=== PATIENT | female | born 1955 | race Caucasian/White ===

== ENCOUNTER 2019-06-02 13:20 | Inpatient (IN) | payer MEDICARE, MEDICAID, SELFPAY ==
[2019-06-04 06:00] VITALS: BP 118/71; PULSE 76; RESP 16; TEMP 36.5; O2SAT 93
[2019-06-04] MEDS: metformin 500 mg Tablet 1000 MG PO ×2 (09:30→17:32)
[2019-06-04] MEDS: pregabalin 100 mg Capsule 200 MG PO ×2 (10:31→17:30)
[2019-06-04] MEDS: pantoprazole DR 40 mg Tablet PO (10:31)
[2019-06-04] MEDS: levothyroxine 150 mcg Tablet PO (10:32)
[2019-06-04] MEDS: sulfamethoxazole-trimeth DS 160-800 mg Tablet 1 TAB PO ×2 (10:32→17:33)
[2019-06-04 14:00] VITALS: BP 126/74; PULSE 87; RESP 20; TEMP 37; O2SAT 96
--- NOTE | 2019-06-04 16:14 | PM.NPN ---
Subjective NPU Subjective: Interval history: Keena presents today reporting that she is doing okay. She reports that she is feeling a lot better and she is hoping to leave soon. We discussed the fact that she is on a 96-hour hold which she could not understand, but I explained that was the case. She appears clear and had been reportedly clearly psychotic from the methamphetamine which she acknowledges that she takes. She reports that the source of the amphetamine is going to be leaving soon and so she is going to be fine. She endorses that she rents a place that she pays for with her SSI and that she does fine on the medications when she is not using and endorses a plan to not use. We discussed the risks, benefits and alternatives of her not having more aggressive treatment as well as discharging and she understood and agreed to proceed as is documented in this note. Mental Status Exam MSE Comments: This is an obese, older, white female, with adequate dress, grooming, and eye contact. No abnormal movements except for mild psychomotor retardation. Cooperative with exam in no acute distress. Speech was normal rate and volume. Mood described as better; affect congruent. Thought process, organized. Thought content: patient denied any suicidal or homicidal ideation, there were no delusions reported or noted, patient denied any auditory or visual hallucinations. Attention, concentration, and memory appeared intact but were not formally tested. Alert and oriented times three. Insight and judgment are limited as she is demonstrating no insight into the impact of her addiction. 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 Continue current medication. She had not informed them of her Paxil so we will initiate that today. Encourage individual, group, and milieu therapy. Continue q 15 minute checks for safety. Encourage to engage in sober living treatment and recovery treatment at the highest level to which she is willing to commit. Attestations NPU Medical Necessity Statement*: Inpatient hospitalization is medically necessary and the clinically appropriate intervention at this time. We will continue to monitor medications and titrate to affect. We will evaluate the patient throughout the day and if she continues to show clarity and be absent of psychosis, we will consider discharging in the morning. Likely length of stay one to three days. Coding Level of Care Code Acute Greeting Card Writer for Ron Womack
[2019-06-04 17:06] LABS: Glucose Point of Care 120 mg/dL (70-110)
[2019-06-04] MEDS: PARoxetine 20 mg Tablet PO (17:33)
[2019-06-04 20:25] VITALS: BP 128/68; PULSE 80; RESP 19; TEMP 37.2; O2SAT 95
[2019-06-04] MEDS: atorvastatin 40 mg Tablet 20 MG PO (21:03)
[2019-06-05 06:00] VITALS: BP 134/70; PULSE 69; RESP 21; TEMP 36.9; O2SAT 100
[2019-06-05 06:30] LABS: Glucose Point of Care 94 mg/dL (70-110)
[2019-06-05] MEDS: metformin 500 mg Tablet 1000 MG PO (08:45)
[2019-06-05] MEDS: pregabalin 100 mg Capsule 200 MG PO (08:45)
[2019-06-05] MEDS: PARoxetine 20 mg Tablet PO (08:45)
[2019-06-05] MEDS: sulfamethoxazole-trimeth DS 160-800 mg Tablet 1 TAB PO (08:45)
[2019-06-05] MEDS: pantoprazole DR 40 mg Tablet PO (08:45)
[2019-06-05] MEDS: fluticasone nasal spray 16gm Btl 1 SPRAY NASAL (08:49)
[2019-06-05] MEDS: levothyroxine 150 mcg Tablet PO (09:25)
--- NOTE | 2019-06-05 12:01 | P.DS_ITS ---
Diagnoses at Discharge Discharge Diagnosis (1) Psychosis: Status: Acute (2) Depressive disorder, not elsewhere classified: Status: Acute Reason for Visit Reason for Visit: Reason For Visit: Psychosis;Substance Abuse;Si;Hallucinations;96 Hr Hospital Course Hospital Course Hospital course: She was admitted from the emergency room and was pretty aloof secondary to her paranoia and psychosis. She slowly acclimated to the individual, group and milieu therapies provided but had limited participation. She had a UTI which was treated and she was discharged on continuing medication. Her home medications were continued and her psychosis resolved. During the hospitalization she had routine laboratory studies which were within normal limits except for a few outliers. Those can be seen in this document. Additionally she had a general medical evaluation which was within normal limits as well and revealed no additional acute processes outside of the UTI. She was on a 96-hour hold but quickly her psychosis resolved and she had no interest in staying in the hospital and we had no additional interventions that we would recommend outside of sober living follow-up which she was refusing. She was assessed to be absent imminent risk to herself or others and had received the maximum benefit from this inpatient stay given that she would not consider a higher level of care for her addiction so she was discharged. Mental Status Exam MSE Comments: This is an obese, older, white female, with adequate dress, grooming, and eye contact. No abnormal movements except for improving mild psychomotor retardation. Cooperative with exam in no acute distress. Speech was normal rate and volume. Mood described as pretty good; affect congruent. Thought process, organized. Thought content: patient denied any suicidal or homicidal ideation, there were no delusions reported or noted, patient denied any auditory or visual hallucinations. Attention, concentration, and memory appeared intact but were not formally tested. Alert and oriented times three. Insight and judgment are improving but limited but she has diminished insight with her addiction. Discharge Data Data Completed and Pending: Labs from last 24 hours 06/05/19 06/04/19 06:19 17:01 POC Glucose 94 120 Vitals: Last Vital Signs Temp 98.4 F 06/05/19 06:00 Pulse 69 06/05/19 06:00 Resp 21 H 06/05/19 06:00 BP 134/70 06/05/19 06:00 Pulse Ox 100 06/05/19 06:00 Discharge Plan Discharge Patient Disposition: Home, Self-Care Condition: Stable Prescriptions: New sulfamethoxazole-trimethoprim 800-160 mg Tablet 1 tab PO BID 6 Days Qty: 11 RF: 0 Continued fluticasone propionate [Flonase Allergy Relief] 50 mcg/actuation spray,jiménez spension 1 spray INTRANASAL DAILY RF: 0 levothyroxine 150 mcg capsule 150 mcg PO DAILY RF: 0 albuterol sulfate [ProAir HFA] 90 mcg/actuation HFA aerosol inhaler 1 inh INHALATION Q4H RF: 0 simvastatin 20 mg tablet 20 mg PO BEDTIME RF: 0 omeprazole 20 mg capsule,delayed release(DR/EC) 20 mg PO DAILY RF: 0 pregabalin [Lyrica] 200 mg capsule 200 mg PO BID RF: 0 glipizide 5 mg tablet 5 mg PO BIDAC RF: 0 metformin 1,000 mg Tablet 1,000 mg PO BIDWM RF: 0 Paxil 20 mg tablet 20 mg PO DAILY 30 Days Qty: 30 RF: 1 Discharge Orders: Discharge Order (Routine); Ordered 06/05/19 Ordered By: Arcenio Gorman Referrals: [facility] [Provider Group] [facility] [Outside] Discharge Diet: Diabetic Discharge Activity: Resume usual activity Patient Instructions: Depression, Sulfamethoxazole/Trimethoprim (By mouth) Activity Restrictions/Additional Instructions: Follow up with provider of choice in 3-5 days Follow up as a walk in at [facility], walk in hours are from 7:30AM- 2:30PM, first come, first seen. Once you do this assessment you will be referred for appropriate services. Follow up with Dr. Mejia as needed Discharge Date/Time: 06/05/19 14:24 Discharge Attestations NPU Time Spent in Discharge Care*: less than 30 min Coding Level of Care Code Acute Ritual Circumciser for Chg Fwd Diagnoses Psychosis F29 Depressive disorder, not elsewhere classified F32.9
[2019-06-05 12:32] VITALS: BP 134/70; RESP 21; TEMP 36.9; O2SAT 100
[2019-06-05 12:35] VITALS: BP 134/70; RESP 21; TEMP 36.9; O2SAT 100
== END 2019-06-05 14:24 | disposition home or self-care (01) | DRG 897 ==
PROVIDERS: Family Provider Family Medicine; PCP Family Medicine; Visit Provider Psychiatry & Neurology Psychiatry
DX: F15.151 Other stimulant abuse with stimulant-induced psychotic disorder with hallucinations (principal); F41.8 Other specified anxiety disorders; F12.90 Cannabis use, unspecified, uncomplicated; I10 Essential (primary) hypertension; E11.9 Type 2 diabetes mellitus without complications; J44.9 Chronic obstructive pulmonary disease, unspecified; Z86.73 Personal history of transient ischemic attack (TIA), and cerebral infarction without residual deficits; Z87.11 Personal history of peptic ulcer disease; K21.9 Gastro-esophageal reflux disease without esophagitis; M19.90 Unspecified osteoarthritis, unspecified site; G89.29 Other chronic pain; M54.9 Dorsalgia, unspecified; M81.0 Age-related osteoporosis without current pathological fracture; Z79.51 Long term (current) use of inhaled steroids; Z79.84 Long term (current) use of oral hypoglycemic drugs; F82 Specific developmental disorder of motor function
CPT/HCPCS: 36415; 36416; 71045; 80053; 80307; 81001; 82962; 84439; 84443; 84484; 85025; 85610; 93005; 96361; 96372; 96374; 99223; 99232; 99284; 99285; J1200; J1630; J2060; J7030

== ENCOUNTER → 2019-06-19 11:28 | Outpatient (BNVA) | payer MEDICARE, MEDICAID, SELFPAY | PROVIDERS: Family Provider Family Medicine; PCP Family Medicine; Referring Provider Family Medicine; Visit Provider Family Medicine | DX: R35.0 Frequency of micturition (principal); F29 Unspecified psychosis not due to a substance or known physiological condition | CPT/HCPCS: 81003; 87086 ==

== ENCOUNTER → 2019-07-03 12:58 | Outpatient (BNVA) | payer MEDICARE, MEDICAID, SELFPAY | PROVIDERS: Family Provider Family Medicine; PCP Family Medicine; Visit Provider Otolaryngology | DX: J32.9 Chronic sinusitis, unspecified (principal); J34.2 Deviated nasal septum; J34.3 Hypertrophy of nasal turbinates; J38.1 Polyp of vocal cord and larynx; F17.210 Nicotine dependence, cigarettes, uncomplicated | CPT/HCPCS: 31575; 99214 ==

== ENCOUNTER 2019-07-15 15:53 | Outpatient (CLI) | payer MEDICARE, MEDICAID, SELFPAY ==
--- NOTE | 2019-07-15 16:00 | CT_ITS ---
WS: [id number] CT PARANASAL SINUSES HISTORY: sinusitis TECHNIQUE: Contiguous 2.5 mm axial images obtained through the sinuses. Images are reconstructed in s agittal and coronal planes. All CT scans at [facility] use at least one of these dose opt imization techniques: automated exposure control; mA and/or kV adjustment per patient size (includes targeted exams where dose is matched to clinical indication); or iterative reconstruction. DLP: 483.51 mGy.cm COMPARISON: None available. Frontal sinuses: Very atrophic frontal sinuses. RIGHT frontal sinus is essentially absent. Sphenoid sinus: Normal. Ethmoid sinuses: Mild mucoperiosteal thickening in the ethmoid air cells. Small osteoma anterior RIGH T frontal sinus. Maxillary sinus: Normal. Ostiomeatal unit: Small amount of mucoperiosteal thickening at the ostiomeatal units but they are pat ent. Very slight deviation of the inferior nasal septum to the LEFT of midline. Orbits and globes are norm al. Atherosclerotic plaque in the intracranial carotid arteries. CT/CT sinus wo con* [id number] IMPRESSION: 1. Mild mucoperiosteal disease in the ethmoid sinuses. No air-fluid levels. 2. No significant obstruction of the ostiomeatal units.
== END 2019-07-15 15:54 | disposition home or self-care (01) ==
LOC: RAD 15:54
PROVIDERS: Family Provider Family Medicine; PCP Family Medicine; Visit Provider Otolaryngology
DX: J32.9 Chronic sinusitis, unspecified (principal)
CPT/HCPCS: 70486

== ENCOUNTER 2019-07-18 08:39 | Outpatient (CLI) | payer MEDICARE, MEDICAID, SELFPAY ==
--- NOTE | 2019-07-18 08:46 | MR_ITS ---
WS: [id number] MRI LUMBAR SPINE NONCONTRAST TECHNIQUE: Sagittal T1, T2 and STIR imaging. Axial T1 and T2 imaging. CLINICAL INFORMATION: LOW BACK PAIN COMPARISON: None. FINDINGS: Mild lumbar curve. No acute compression. No high-grade central canal stenosis. L1-L2: Mild annular bulging with slight effacement of ventral thecal sac. Mild facet arthropathy. Spi nal canal and foramen are patent. L2-L3: Slight retrolisthesis. Mild annular bulging with slight effacement of ventral thecal sac. Mild facet arthropathy. Spinal canal and foramen are patent. L3-L4: No significant disc bulging. Mild facet arthropathy. Spinal canal and foramen are patent. L4-L5: Mild annular bulging with slight effacement of the ventral thecal sac. Tiny bilateral foramina l protrusions with mild foraminal narrowing. Moderate facet arthropathy. L5-S1: No significant disc bulging. Eccentric osteophytic ridging slightly encroaches on the far exit ing L5 nerve roots. No significant nerve root impingement. Mild facet arthropathy MR/MR lumbar spine wo con* [id number] IMPRESSION: 1. Mild lumbar curve. No acute compression. No high-grade central canal stenos is. 2. Small bilateral foraminal protrusions L4-5 with mild bilateral foraminal na rrowing. 3. Mild annular bulging L1-L2 and L2-L3 without significant central canal sten osis. 4. Eccentric osteophytic ridging L5-S1 slightly encroaches on the far exiting L5 nerve roots without significant impingement. 5. Mild to moderate facet arthropathy L3-L5.
--- NOTE | 2019-07-18 09:30 | XR_ITS ---
WS: [id number] LUMBAR SPINE FLEXION AND EXTENSION TECHNIQUE: 3 views of the lumbar spine: Lateral neutral, flexion, and extension views. CLINICAL INFORMATION: Low back pain COMPARISON: None. FINDINGS: Trace retrolisthesis L2 on L3. No instability on flexion-extension. Disc space narrowing worse at L4- L5 and L5-S1. Chronic anterior wedging lower thoracic spine. Moderate spondylitic changes. Moderate f acet arthropathy L4-L5 and L5-S1. Aortic calcification. XR/XR lumbar spine f/e only [id number] IMPRESSION: No instability on flexion-extension.
== END 2019-07-18 08:40 | disposition home or self-care (01) ==
LOC: RADWPI 08:43
PROVIDERS: Family Provider Family Medicine; PCP Family Medicine; Visit Provider Licensed Practical Nurse
DX: M51.26 Other intervertebral disc displacement, lumbar region (principal); M47.817 Spondylosis without myelopathy or radiculopathy, lumbosacral region
CPT/HCPCS: 72120; 72148

== ENCOUNTER → 2019-07-23 10:45 | Outpatient (BNVA) | payer MEDICARE, MEDICAID, SELFPAY | PROVIDERS: Family Provider Family Medicine; PCP Family Medicine; Referring Provider Licensed Practical Nurse; Visit Provider Psychiatry & Neurology Neurology | DX: J38.1 Polyp of vocal cord and larynx (principal); J32.9 Chronic sinusitis, unspecified; J34.3 Hypertrophy of nasal turbinates; J34.2 Deviated nasal septum; F17.210 Nicotine dependence, cigarettes, uncomplicated; G62.9 Polyneuropathy, unspecified; M79.605 Pain in left leg | CPT/HCPCS: 95886; 95908; 96372; 99214; J3301 ==

== ENCOUNTER → 2019-08-14 13:21 | Outpatient (BNVA) | payer MEDICARE, MEDICAID, SELFPAY | PROVIDERS: Family Provider Family Medicine; PCP Family Medicine; Visit Provider Otolaryngology | DX: J38.1 Polyp of vocal cord and larynx (principal); J34.3 Hypertrophy of nasal turbinates; J34.2 Deviated nasal septum; K21.9 Gastro-esophageal reflux disease without esophagitis; F17.210 Nicotine dependence, cigarettes, uncomplicated | CPT/HCPCS: 99214 ==

== ENCOUNTER → 2019-09-05 08:08 | Outpatient (BNVA) | payer MEDICARE, MEDICAID, SELFPAY | PROVIDERS: Family Provider Family Medicine; PCP Family Medicine; Referring Provider Licensed Practical Nurse; Visit Provider Anesthesiology Pain Medicine | DX: M54.9 Dorsalgia, unspecified (principal); M54.16 Radiculopathy, lumbar region; M47.816 Spondylosis without myelopathy or radiculopathy, lumbar region; M62.830 Muscle spasm of back; F17.210 Nicotine dependence, cigarettes, uncomplicated; Z79.891 Long term (current) use of opiate analgesic | CPT/HCPCS: 99204 ==

== ENCOUNTER → 2019-10-31 09:00 | Outpatient (BNVA) | payer MEDICARE, MEDICAID, SELFPAY | PROVIDERS: Family Provider Family Medicine; PCP Family Medicine; Visit Provider Anesthesiology Pain Medicine | DX: M54.42 Lumbago with sciatica, left side (principal); M54.16 Radiculopathy, lumbar region; M47.816 Spondylosis without myelopathy or radiculopathy, lumbar region; M54.9 Dorsalgia, unspecified; M62.830 Muscle spasm of back; I73.9 Peripheral vascular disease, unspecified; F17.210 Nicotine dependence, cigarettes, uncomplicated | CPT/HCPCS: 99213; 99214 ==

== ENCOUNTER 2019-10-31 17:10 | Observation (INO) | payer MEDICARE, MEDICAID, SELFPAY ==
--- NOTE | 2019-10-31 17:11 | XRR_ITS ---
PROCEDURE INFORMATION: Exam: XR Chest, 1 View Exam date and time: 10/31/2019 5:11 PM Age: 64 years old Clinical indication: Chest pain; Type not specified; Patient HX: C/O cp x 2 hrs TECHNIQUE: Imaging protocol: XR of the chest Views: 1 view. COMPARISON: CR Chest 1 [place] [id number] 06/02/2019 12:17 PM FINDINGS: Patient is rotated, limiting assessment. Otherwise no focal pulmonary consolidation is demonstrated on this single frontal image. No significant obscuration of the lateral costophrenic angles is demonstrated. No significant vascular congestion is demonstrated. Visualized cardiac silhouette size appears mildly enlarged. Pericardial effusion not excluded. There is small to moderate hiatal hernia. XR/XR chest 1V portable [id number] IMPRESSION: No definite acute pulmonary process is demonstrated. Visualized cardiac silhouette size appears mildly enlarged. Pericardial effusion not excluded. There is small to moderate hiatal hernia.
--- NOTE | 2019-10-31 17:11 | ECG_ITS ---
Measurements Intervals [place] Rate: 76 P: 56 SD: 190 QRS: 14 QRSD: 89 T: 50 QT: 368 QTc: 415 SINUS RHYTHM LOW QRS VOLTAGE IN PRECORDIAL LEADS [QRS DEFLECTION < 1.0 mV IN CHEST LEADS] NONSPECIFIC T-WAVE ABNORMALITY Compared to ECG 06/02/2019 12:47:48 Low QRS voltage now present T-wave abnormality still present Electronically Signed On 10-31-2019 18:56:12 CDT by Michelle Draper M.D. [email or web address]
[2019-10-31 17:39] VITALS: BP 195/71; PULSE 78; RESP 18; TEMP 36.4; O2SAT 98
[2019-10-31 17:52] LABS: Basophils % 0.4 %; Eosinophils # 0.3 10^3/uL (0.0-0.8); Eosinophils % 2.9 %; Hematocrit 34.7 % (37.0-47.0); Hemoglobin 10.3 g/dL (11.5-15.3); Lymphocytes # 3.5 10^3/uL (0.8-4.8); Lymphocytes % 35.2 %; Mean Corpuscular HGB Conc 29.7 g/dL (30.0-36.0); Mean Corpuscular Hemoglobin 23.2 pg (28.0-34.0); Mean Corpuscular Volume 78.2 fL (81-99); Mean Platelet Volume 11.4 fL (7.4-10.4); Monocytes # 0.6 10^3/uL (0.2-0.9); Monocytes % 6.3 %; Neutrophils # 5.4 10^3/uL (1.8-7.7); Neutrophils % 54.9 %; Nucleated Red Blood Cells % 0 %; Platelet Count 320 10^3/cmm (130-400); Red Blood Count 4.44 10^6/uL (4.1-5.3); White Blood Count 9.8 10^3/uL (4.0-10.0)
--- NOTE | 2019-10-31 17:55 | ED_ITS ---
HPI - Chest Pain General: Chief Complaint: Chest Pain Stated Complaint: cp Time Seen by Provider: 10/31/19 17:47 Source: patient Mode of arrival: ambulatory History of Present Illness: HPI narrative: 64-year-old female has a history high blood pressure and is a smoker states she started having chest pain 1 hour ago. She states it was a pressure type pain in her chest. States pain is currently a 2 out of 10. She denies any nausea or shortness of breath. She denies any worsening or improving factors. MD complaint: chest pain Onset (ago): hour(s) Timing of current episode: constant Prior episodes: Yes Onset: during rest Pain location: substernal Pain radiation: none Severity: moderate Quality: heaviness Relieving factors: nothing Exacerbating factors: nothing Associated symptoms: Deny abdominal pain, dyspnea, fever(s), nausea or vomiting Review of Systems Const: Denies: fever(s), chills, body aches or change in appetite Eyes: Denies: blurry vision or eye discomfort ENMT: Denies: throat pain or dental pain Card: Reports: chest pain Resp: Denies: dyspnea GI: Denies: abdominal pain, nausea, vomiting or diarrhea : Denies: dysuria Musc: Denies: neck pain or back pain Skin/Breast: Denies: rash Neuro: Denies: headache(s) Psych: Denies: depression Frederic/Lymph: Denies: easy bruising All/Imm: Denies: urticaria PFSH ED PFSH: Medical History Chronic rhinitis Deviated septum GERD (gastroesophageal reflux disease) Intervertebral disc disorder with radiculopathy of lumbosacral region Nasal turbinate hypertrophy Nikita's edema of vocal folds Tobacco abuse Surgical History H/O cataract Family History Father CAD (coronary artery disease) Diabetes Mother Diabetes Brother Diabetes Grandfather CAD (coronary artery disease) Other Cancer Social History Smoking and tobacco status: current every day smoker Alcohol intake: never Household members: none Marital status: Current occupational status: disabled History of recent travel: No Physical Exam Const: COMMON NORMALS: no acute distress, patient oriented x3 and healthy appearing HENMT: COMMON NORMALS: normocephalic and atraumatic HEAD & SCALP: normocephalic and atraumatic Eye: COMMON NORMALS: Equal, round and reactive pupils present and EOMs intact bilaterally PUPIL: Yes Equal, round and reactive pupils present Neck/C-Spine: COMMON NORMALS: full ROM and supple Chest: COMMONS NORMALS: normal inspection of the chest and normal palpation of entire chest wall Resp: COMMON NORMALS: normal respiratory effort, No retractions, No use of accessory muscles and clear to auscultation bilaterally AUSCULTATION: clear to auscultation bilaterally Cardio: COMMON NORMALS: regular rate, regular rhythm and No murmurs present (Cardio) RATE: regular rate RHYTHM: regular rhythm GI: COMMON NORMALS: Normal to inspection, nondistended, normoactive bowel sounds present, Soft to palpation, non-tender and no masses PALPATION: Yes Soft to palpation Extremity: COMMON NORMALS: normal to inspection and full ROM Neuro: COMMON NORMALS: patient oriented x3, moves all extremities and no focal motor deficits Psych: COMMON NORMALS: mental status grossly normal, Normal thought process present and cooperative THOUGHT PROCESS: Normal thought process present Skin: COMMON NORMALS: no rashes or lesions noted and no wounds GENERAL SKIN EXAM: no rashes or lesions noted Course Vital Signs: Vital signs: Vital Signs Temperature 97.6 F 10/31/19 17:39 Pulse Rate 74 10/31/19 19:14 Respiratory Rate 18 10/31/19 19:14 Blood Pressure 171/82 10/31/19 19:14 Pulse Oximetry 98 10/31/19 19:14 MDM - Chest Pain MDM Narrative: Medical decision making narrative: Patient presents here with chest pain and has multiple risk factors. EKG and troponin are normal. I spoke to hospitalist will admit for observation. Patient has been stable on the ER nitro helped her pain. Lab Data: Labs: Lab Results 10/31/19 10/31/19 10/31/19 Range/Units 17:30 17:30 17:30 WBC 9.8 (4.0-10.0) 10^3/ uL RBC 4.44 (4.1-5.3) 10^6/u L Hgb 10.3 L (11.5-15.3) g/dL Hct 34.7 L (37.0-47.0) % MCV 78.2 L (81-99) fL MCH 23.2 L (28.0-34.0) pg MCHC 29.7 L (30.0-36.0) g/dL RDW 18.0 H (12.1-15.1) % Plt Count 320 (130-400) 10^3/c mm MPV 11.4 H (7.4-10.4) fL Neut % (Auto) 54.9 % Lymph % (Auto) 35.2 % [place] % (Auto) 6.3 % Eos % (Auto) 2.9 % Baso % (Auto) 0.4 % Neut # (Auto) 5.4 (1.8-7.7) 10^3/u L Lymph # (Auto) 3.5 (0.8-4.8) 10^3/u L [place] # (Auto) 0.6 (0.2-0.9) 10^3/u L Eos # (Auto) 0.3 (0.0-0.8) 10^3/u L Baso # (Auto) 0.0 (0.0-0.1) 10^3/u L Nucleated RBC % (a uto) 0 % Nucleated RBCs # 0.0 /100WBC Sodium 137 (136-145) mmol/L Potassium 4.0 (3.5-5.1) mmol/L Chloride 102 (98-107) mmol/L Carbon Dioxide 24 (22-29) mmol/L Anion Gap 15.0 (5-19) BUN 14 (8-23) mg/dL Creatinine 0.7 (0.5-0.9) mg/dL GFR Calculation 84.2 L (90-130) mL/min Glucose 150 H (65-115) mg/dL Calculated Osmolal ity 283 L (285-295) mOsm/k g Calcium 8.8 (8.5-10.5) mg/dL Total Bilirubin 0.2 (0.15-1.2) mg/dL AST 23 (0-32) U/L ALT 24 (0-33) U/L Alkaline Phosphata se 120 H (35-105) IU/L Troponin T Baselin e 6 (0-10) ng/mL Total Protein 7.3 (6.6-8.7) g/dL Albumin 3.8 (3.5-5.2) g/dL Globulin 3.5 (1.3-4.6) g/dL Imaging Data^: CXR: Attestation: I personally reviewed and interpreted this imaging study as follows: My impression: No acute abnormality EKG Data^: EKG 1: Attestation: I personally reviewed and interpreted this EKG as follows: EKG interpretation date: 10/31/19 EKG interpretation time: 17:48 Interpretation: nsr hr [address] or t wave abnormalities qrs 89 qtc 398 EKG 2: Attestation: I personally reviewed and interpreted this EKG as follows: EKG interpretation date: 10/31/19 EKG interpretation time: 19:35 Interpretation: Normal sinus rhythm heart rate [address] or T wave abnormal ities QRS 85 QTc 402 Discharge Plan Discharge Prescriptions: No Action omeprazole 20 mg capsule,delayed release(DR/EC) 20 mg PO DAILY RF: 0 pregabalin [Lyrica] 200 mg capsule 200 mg PO TID RF: 0 quetiapine [Seroquel] 25 mg tablet 25 mg PO QDAY 30 Days Qty: 90 RF: 3 albuterol sulfate [ProAir HFA] 90 mcg/actuation HFA aerosol inhaler 1 inh INHALATION Q4H 90 Days Qty: 24 RF: 3 glipizide 5 mg tablet 5 mg PO BIDAC 90 Days Qty: 180 RF: 3 aspirin [Adult Low Dose Aspirin] 81 mg tablet,delayed release (DR/EC) 81 mg PO QDAY RF: 0 fluticasone propionate 50 mcg/actuation spray,suspension 1 spray INTRANASAL DAILY RF: 0 tizanidine 4 mg tablet 4 mg PO BID PRN (Reason: muscle spasticity) Qty: 60 RF: 0 levothyroxine 150 mcg capsule 150 mcg PO DAILY 90 Days Qty: 90 RF: 3 (DME) Accu-Chek Dayana Plus test strp Strip See Rx Instructions .ROUTE .MEDSUPPLY Qty: 100 RF: 3 (DME) lancets [Accu-Chek Softclix Lancets] Misc See Rx Instructions .ROUTE .MEDSUPPLY Qty: 50 RF: 11 metformin 1,000 mg tablet 500 mg PO BIDWM 90 Days Qty: 90 RF: 3 simvastatin 20 mg tablet 20 mg PO BEDTIME 90 Days Qty: 90 RF: 3 Coding Level of Care Code ED Account Manager B2B for Ron Fwd Exam Comprehensive
[2019-10-31 18:06] LABS: Alanine Aminotransferase 24 U/L (0-33); Albumin Level 3.8 g/dL (3.5-5.2); Alkaline Phosphatase 120 IU/L (35-105); Aspartate Amino Transferase 23 U/L (0-32); Blood Urea Nitrogen 14 mg/dL (8-23); Calcium 8.8 mg/dL (8.5-10.5); Carbon Dioxide 24 mmol/L (22-29); Chloride 102 mmol/L (98-107); Globulin 3.5 g/dL (1.3-4.6); Glomerular Filtration Rate 84.2 mL/min (90-130); Glucose 150 mg/dL (65-115); Osmolality Calculated 283 mOsm/kg (285-295); Sodium 137 mmol/L (136-145); Total Bilirubin 0.2 mg/dL (0.15-1.2); Total Protein 7.3 g/dL (6.6-8.7)
[2019-10-31 18:07] VITALS: BP 160/79; PULSE 78; RESP 18; O2SAT 99
[2019-10-31 18:08] LABS: Troponin(5th) Baseline 6 ng/mL (0-10)
[2019-10-31] MEDS: nitroglycerin 0.4 mg sublingual Tablet SUBLINGUAL (18:08)
[2019-10-31] MEDS: aspirin 81 mg Chew Tablet 324 MG PO (18:08)
--- NOTE | 2019-10-31 19:11 | ECG_ITS ---
Measurements Intervals [place] Rate: 71 P: 55 MT: 179 QRS: 8 QRSD: 85 T: 51 QT: 379 QTc: 414 SINUS RHYTHM LOW QRS VOLTAGE IN PRECORDIAL LEADS [QRS DEFLECTION < 1.0 mV IN CHEST LEADS] NONSPECIFIC T-WAVE ABNORMALITY Compared to ECG 10/31/2019 17:48:30 No significant changes Electronically Signed On 11-01-2019 8:16:50 CDT by Franc Xie M.D. [email or web address]
[2019-10-31] MEDS: lidocaine 2% viscous 15 ML, aluminum-mag hydrox-simethicon 30 ML, sucralfate oral liq 1 GM PO (19:12)
[2019-10-31 19:14] VITALS: BP 171/82; PULSE 74; RESP 18; O2SAT 98
--- NOTE | 2019-10-31 19:42 | PM.HP ---
Providers/Chief Complaint Primary Care Provider: Everardo Mejia MD Chief Complaint: cp History of Present Illness Keena Anderson is a 64 year old female who carries diagnoses of methamphetamine abuse in the past, history of incarceration, active smoker, non-oxygen dependent COPD, coming in with chief complaint of chest pain. Patient is stating that for last couple of years she has been experiencing leg pain on exertion, she has also noticed blue toes at some point in the past, she is scheduled to see Dr. Gonzalez on next week. For last couple of days she has been experiencing intermittent pressure-like chest discomfort, not associated with nausea vomiting or radiation of this pain to her arm. She is describing this chest discomfort as pressure-like sensation, substernally, sometimes radiate towards her left side of the jaw, her description of pain is very inconsistent, she kept on talking about her leg pains. She endorsed that her chest pain would last only for a few seconds, there are no aggravating or relieving factors, today she experience chest pain while she was smoking in her couch around 6 PM. She denies orthopnea, PND. She is denying aggravation of this chest discomfort on laying supine. Patient was very emotional and stated that her daughter at age 36 because of cardiomegaly. She is denying previous history of CT, and STEMI, endorses multiple TIAs. Diagnostics in the ER revealed normal hemodynamics other than hypertension, EKG did not reveal any ischemic or infarct changes however nonspecific T wave changes flat T waves anterolateral leads, patient is chest pain-free at the time of my interview, first troponin not significantly high Systolic blood pressure at the time of interview 180 mMHG, she was very emotional and started crying talking about her leg pain. Review of Systems Const: Reports: body aches and fatigue; Denies: fever(s) or chills Eyes: Reports: eye discharge; Denies: change in vision ENMT: Denies: throat pain Card: Reports: chest pain, swelling of feet/ankles, dyspnea on exertion and leg pain with exertion; Denies: palpitations, irregular heart rhythm or orthopnea Resp: Reports: dyspnea and productive cough GI: Denies: abdominal pain, nausea or vomiting : Denies: flank pain or difficulty voiding Musc: Reports: back pain and extremity pain; Denies: neck pain or joint stiffness Skin/Breast: Denies: rash Neuro: Denies: headache(s) Psych: Reports: anxiety, panic attacks and hopelessness; Denies: suicidal ideation Endo: Denies: polyuria Frederic/Lymph: Denies: easy bruising All/Imm: Denies: urticaria Medications/Allergies Home Medications Medication Instructions Recorded Confirmed Last Taken Type omeprazole 20 mg capsule,delayed 20 mg PO DAILY 05/30/19 10/31/19 06/02/19 History release levothyroxine 150 mcg capsule 150 mcg PO DAILY 90 Days #90 cap 06/09/19 10/31/19 Unknown Rx blood sugar diagnostic #100 each 06/23/19 10/31/19 Unknown Rx albuterol sulfate 90 mcg/actuation 1 inh INHALATION Q4H 90 Days #24 gm 06/30/19 10/31/19 Unknown Rx aerosol inhaler glipizide 5 mg tablet 5 mg PO BIDAC 90 Days #180 tab 06/30/19 10/31/19 Unknown Rx quetiapine 25 mg tablet 25 mg PO QDAY 30 Days #90 tab 06/30/19 10/31/19 Unknown Rx aspirin 81 mg tablet,delayed 81 mg PO QDAY 07/03/19 10/31/19 Unknown History release lancets #50 each 07/22/19 10/31/19 Unknown Rx pregabalin 200 mg capsule 200 mg PO TID cap 08/26/19 10/31/19 Unknown History metformin 1,000 mg tablet 500 mg PO BIDWM 90 Days #90 tab 09/06/19 10/31/19 Unknown Rx simvastatin 20 mg tablet 20 mg PO BEDTIME 90 Days #90 tab 10/06/19 10/31/19 Unknown Rx fluticasone propionate 50 1 spray INTRANASAL DAILY 10/31/19 10/31/19 Unknown History mcg/actuation nasal spray,suspension tizanidine 4 mg tablet 4 mg PO BID PRN #60 tab 10/31/19 10/31/19 Unknown Rx Allergies Allergy/AdvReac Type Severity Reaction Status Date / Time clarithromycin [From Biaxin] Allergy Thrush Verified 10/31/19 09:10 codeine Allergy rash Verified 10/31/19 09:10 PFSH Acute PFSH: Medical History (Updated 10/31/19 @ 20:16 by Michelle Christensen MD) Chronic back pain Chronic rhinitis COPD (chronic obstructive pulmonary disease) Deviated septum Diabetes GERD (gastroesophageal reflux disease) H/O: CVA (cerebrovascular accident) Hiatal hernia History of incarceration Hypertension 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 region group home (current) use of opiate analgesic Methamphetamine abuse Nasal turbinate hypertrophy Pain management contract signed Peptic ulcer disease Nikita's edema of vocal folds Tobacco abuse Surgical History (Updated 10/31/19 @ 20:16 by Michelle Christensen MD) H/O cataract History of appendectomy S/P tubal ligation Family History Father CAD (coronary artery disease) Diabetes Mother Diabetes Brother Diabetes Grandfather CAD (coronary artery disease) Other Cancer Social History Smoking and tobacco status: current every day smoker Alcohol intake: never Household members: none Marital status: Current occupational status: disabled History of recent travel: No Vitals/I&O/Wt Last Vital Signs Temp 97.6 F 10/31/19 17:39 Pulse 74 10/31/19 19:14 Resp 18 10/31/19 19:14 BP 171/82 10/31/19 19:14 Pulse Ox 98 10/31/19 19:14 Weight last 48 hrs Weight 2.353 kg Physical Exam Narrative: EXAM NARRATIVE: Head to toe examination Obese female Patient very emotional sitting in her bed with a mask Her granddaughter at the bedside EOMI, PERRLA Sinus congestion S1, S2 no acute signs of heart failure Abdomen soft, nondistended no sign of peritonitis bowel sound present Neurologically nonfocal exam Lower extremity dorsalis pedis pulses 1+ bilaterally no active signs of ischemia gangrene ulcer Lung auscultation reveals mild wheezing on expiration no active respiratory distress Her chest pain is nonreproducible No murmur appreciated Multiple body tattoos Data : 10/31/19 17:30 10/31/19 17:30 A&P Assessment and plan (1) Unstable angina: Status: Acute (2) Obesity: Status: Acute (3) Smoker: Status: Acute (4) Claudication of lower extremity: Status: Acute (5) Hypertension: Status: Acute (6) Diabetes: Status: Acute (7) Hypothyroidism: Status: Acute Additional A&P Information Unstable angina Multiple risk factors for coronary disease such as active smoking, dyslipidemia, hypothyroidism, diabetes First troponin negative, EKG shows flat T waves anterolateral leads, currently chest pain-free I would admit her to get echo in the morning to see any wall motion abnormalities ideally she would be a good candidate for a Lexiscan stress test, I recommended her to get a stress test next week Continue aspirin, statin Admit to [facility] Hiatal hernia found on chest x-ray which might be also contributing to her chest discomfort, I will try GI cocktail Intermittent claudication No active signs of cyanosis, gangrene or ulcer Counseled on smoking cessation I would get arterial Dopplers in the morning, she is scheduled to see Dr. Gonzalez on No need of anticoagulation at this point, continue aspirin and statin Active smoker: Counseled on smoking cessation, willing to try nicotine replacement therapy, patient is stating that she is strained financially to affoRD nicotine patches Hypothyroidism: I would continue her levothyroxine home dose, will check TSH Hypertension: I would add lisinopril current systolic blood pressure range between 1 50-1 80MMHG Type 2 diabetes: Multiple calluses on the foot, no active cellulitis, moderate sliding scale Full code Lovenox DVT prophylax Consistent carbohydrate diet Attestations Medical Necessity Statement*: Anticipating discharge in less than 48 hours currently needs echo and arterial Doppler Time Spent in Patient Care: 55 Coding Level of Care Code 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
[2019-10-31 19:50] LABS: Troponin 5 2HR Delta 0 ABS# (0-10)
[2019-10-31 20:13] VITALS: BP 182/116; PULSE 74; RESP 18; O2SAT 97
[2019-10-31 21:15] VITALS: BP 135/69; PULSE 71; RESP 23; TEMP 37; O2SAT 95
[2019-10-31] MEDS: pregabalin 100 mg Capsule 200 MG PO (21:46)
[2019-10-31] MEDS: atorvastatin 40 mg Tablet 20 MG PO (21:47)
[2019-10-31] MEDS: enoxaparin 40 mg/0.4 mL Syringe SUBCUT (21:47)
--- NOTE | 2019-10-31 21:57 | PC.NURSE ---
Patient arrived to the floor from the ED after report was received via phone. Patient is alert and oriented and ambulatory with standby assistance. Patient tells stories about her family and past and begins crying often while talking. Patient stated I used to use IV drugs. Patient has been oriented to her room and has call light within reach. SR on monitor and VSS. Will continue to monitor.
[2019-10-31 22:00] LABS: Thyroid Stimulating Hormone 0.18 uIU/mL (0.27-4.20)
[2019-10-31 22:35] LABS: Ferritin 17 ng/mL (15-150); Iron 19 ug/dL (37-145)
[2019-10-31 23:08] LABS: Glucose Point of Care 105 mg/dL (70-110)
--- NOTE | 2019-10-31 23:21 | PC.NURSE ---
Dr. Christensen notified of patient complaining of chest pain. Patient states it is worse when she breaths in. Patient also states she had a bitter taste in her mouth from acid reflux. Ordered to give Morphine.
[2019-10-31 23:49] VITALS: RESP 15
[2019-10-31] MEDS: morphine 4 mg/mL SDV 1 mL 2 MG IVP (23:49)
--- NOTE | 2019-10-31 23:59 | PC.NURSE ---
Patient came from ED without IV. 22 gauge IV started in left AC on second attempt.
[2019-11-01] VITALS (8 sets, daily range): BP systolic 123–136; BP diastolic 59–71; PULSE 69–80; RESP 12–23; TEMP 36.6–36.8; O2SAT 93–96
[2019-11-01 00:12] LABS: Troponin 5 6HR Delta 0 ng/L (0-12)
--- NOTE | 2019-11-01 00:46 | PC.NURSE ---
Patient is currently resting with eyes closed.
[2019-11-01 04:58] LABS: Amphetamines Screen Urine Negative (Negative); Barbiturates Screen Urine Negative (Negative); Benzodiazepines Screen Urine Negative (Negative); Cocaine Screen Urine Negative (Negative); Opiate Screen Urine Positive (Negative); PCP Screen Urine Negative (Negative); THC Screen Urine Negative (Negative)
[2019-11-01 05:29] LABS: Basophils % 0.4 %; Eosinophils # 0.3 10^3/uL (0.0-0.8); Eosinophils % 3.3 %; Hematocrit 33.9 % (37.0-47.0); Hemoglobin 10.1 g/dL (11.5-15.3); Lymphocytes # 2.8 10^3/uL (0.8-4.8); Lymphocytes % 37.5 %; Mean Corpuscular HGB Conc 29.8 g/dL (30.0-36.0); Mean Corpuscular Hemoglobin 23.5 pg (28.0-34.0); Monocytes # 0.6 10^3/uL (0.2-0.9); Monocytes % 7.5 %; Neutrophils # 3.9 10^3/uL (1.8-7.7); Neutrophils % 50.9 %; Nucleated Red Blood Cells % 0 %; Platelet Count 319 10^3/cmm (130-400); Red Blood Count 4.29 10^6/uL (4.1-5.3); Red Cell Distribution Width 17.9 % (12.1-15.1); White Blood Count 7.6 10^3/uL (4.0-10.0)
[2019-11-01 06:09] LABS: Anion Gap 12.1 (5-19); Blood Urea Nitrogen 11 mg/dL (8-23); Calcium 9.6 mg/dL (8.5-10.5); Carbon Dioxide 28 mmol/L (22-29); Chloride 104 mmol/L (98-107); Glomerular Filtration Rate 100.6 mL/min (90-130); Glucose 105 mg/dL (65-115); Osmolality Calculated 286 mOsm/kg (285-295); Potassium 4.1 mmol/L (3.5-5.1); Sodium 140 mmol/L (136-145)
[2019-11-01 06:32] LABS: Glucose Point of Care 99 mg/dL (70-110)
[2019-11-01] MEDS: aspirin 81 mg EC Tablet PO (08:07)
[2019-11-01] MEDS: pregabalin 100 mg Capsule 200 MG PO ×2 (08:07→14:40)
[2019-11-01] MEDS: pantoprazole DR 40 mg Tablet PO (08:07)
[2019-11-01] MEDS: levothyroxine 150 mcg Tablet PO (08:08)
[2019-11-01 12:00] LABS: Glucose Point of Care 99 mg/dL (70-110)
--- NOTE | 2019-11-01 13:42 | PM.DCS ---
Discharge Providers Date of Admission: 10/31/19 19:41 Date of Discharge: November 01, 2019 Attending Provider at Admission: Michelle Christensen MD Attending Provider at Discharge: Owen Raymond MD Primary Care Provider: Everardo Mejia MD Diagnoses at Discharge Discharge Diagnosis (1) Unstable angina: Status: Acute Problem details: Troponin negative. Delta negative. Echo with normal EF and no wall motion abnormalities (2) Obesity: Status: Acute (3) Smoker: Status: Acute (4) Claudication of lower extremity: Status: Acute Problem details: Ankle-brachial index 0.7 on right. She is already been referred to vascular surgery. (5) Hypertension: Status: Acute (6) Diabetes: Status: Acute (7) Hypothyroidism: Status: Acute Reason for Visit Reason for Visit: Reason For Visit: cp Hospital Course Hospital Course: Keena is a 64-year-old white female who presented to the hospital with somewhat atypical chest pain, sharp, lasting chronically for about a day. Not necessarily exertional. In the emergency department initial troponin was negative. There was concern for possible cardiac reason for chest discomfort so she was admitted. Serial troponins showed no significant delta. EKGs did not demonstrate any diagnostic changes. Only nonspecific ST-T wave changes. The following day she had no significant chest discomfort, feeling much better. It was thought she could be discharged home. Echocardiogram was also performed demonstrating no wall motion abnormalities, normal EF. She will be discharged for outpatient follow-up with her primary care provider. She will get a nuclear stress test next week for her chest discomfort. Note that she also had an arterial duplex done while inpatient secondary to claudication symptoms. This demonstrated an HEATHER of 0.7 on the left, 0.9 on the right. She already has a vascular surgery consult in his place. She has no current skin breakdown. While in the hospital her aspirin was changed to 325 mg daily. Statin was changed to Lipitor from lovastatin. Levothyroxine dose was decreased based on her low TSH. She will need a repeat TSH in 6 weeks. Physical Exam Narrative: EXAM NARRATIVE: General exam no apparent distress Cardiovascular regular rate and rhythm without murmur Lungs clear Abdomen is soft with positive bowel sounds Extremities no cyanosis clubbing or edema Discharge Data Data Completed and Pending: Completed Studies During Hospitalization Category Date Time Status XR chest 1V [place] ble [id number] Stat Exams 05/29/20 17:11 [place] [id number] Rout ine Ultrasound 11/01/19 21:15 Completed CV echo complete* [id number] Routine Ultrasound 11/01/19 21:15 Completed Labs from last 24 hours 11/01/19 11/01/19 11/01/19 11:31 06:28 04:49 WBC RBC Hgb Hct MCV MCH MCHC RDW Plt Count MPV Neut % (Auto) Lymph % (Auto) Clark % (Auto) Eos % (Auto) Baso % (Auto) Neut # (Auto) Lymph # (Auto) Clark # (Auto) Eos # (Auto) Baso # (Auto) Nucleated RBC % (a uto) Nucleated RBCs # Sodium 140 Potassium 4.1 Chloride 104 Carbon Dioxide 28 Anion Gap 12.1 BUN 11 Creatinine 0.6 GFR Calculation 100.6 Glucose 105 POC Glucose 99 99 Calculated Osmolal ity 286 Calcium 9.6 Iron Ferritin Total Bilirubin AST ALT Alkaline Phosphata se Troponin I 6 Hour Troponin I Hi Sens Del Troponin T Baselin e Troponin T 120 Min [place] Troponin T Total Protein Albumin Globulin TSH Urine Opiates Scre en Ur Barbiturates Sc reen Ur Phencyclidine S crn Ur Amphetamines Sc reen U Benzodiazepines Scrn Urine Cocaine Scre en U Marijuana (THC) Screen 11/01/19 11/01/19 10/31/19 04:49 04:00 23:34 WBC 7.6 RBC 4.29 Hgb 10.1 L Hct 33.9 L MCV 79.0 L MCH 23.5 L MCHC 29.8 L RDW 17.9 H Plt Count 319 MPV 12.0 H Neut % (Auto) 50.9 Lymph % (Auto) 37.5 Clark % (Auto) 7.5 Eos % (Auto) 3.3 Baso % (Auto) 0.4 Neut # (Auto) 3.9 Lymph # (Auto) 2.8 Clark # (Auto) 0.6 Eos # (Auto) 0.3 Baso # (Auto) 0.0 Nucleated RBC % (a uto) 0 Nucleated RBCs # 0.0 Sodium Potassium Chloride Carbon Dioxide Anion Gap BUN Creatinine GFR Calculation Glucose POC Glucose Calculated Osmolal ity Calcium Iron Ferritin Total Bilirubin AST ALT Alkaline Phosphata se Troponin I 6 Hour 6.00 Troponin I Hi Sens Del 0 Troponin T Baselin e Troponin T 120 Min [place] Troponin T Total Protein Albumin Globulin TSH Urine Opiates Scre en Positive H Ur Barbiturates Sc reen Negative Ur Phencyclidine S crn Negative Ur Amphetamines Sc reen Negative U Benzodiazepines Scrn Negative Urine Cocaine Scre en Negative U Marijuana (THC) Screen Negative 10/31/19 10/31/19 10/31/19 21:26 19:30 19:30 WBC RBC Hgb Hct MCV MCH MCHC RDW Plt Count MPV Neut % (Auto) Lymph % (Auto) Clark % (Auto) Eos % (Auto) Baso % (Auto) Neut # (Auto) Lymph # (Auto) Clark # (Auto) Eos # (Auto) Baso # (Auto) Nucleated RBC % (a uto) Nucleated RBCs # Sodium Potassium Chloride Carbon Dioxide Anion Gap BUN Creatinine GFR Calculation Glucose POC Glucose 105 Calculated Osmolal ity Calcium Iron 19 L Ferritin 17 Total Bilirubin AST ALT Alkaline Phosphata se Troponin I 6 Hour Troponin I Hi Sens Del Troponin T Baselin e Troponin T 120 Min [place] 6.00 Delta Troponin T 0 Total Protein Albumin Globulin TSH 0.18 L Urine Opiates Scre en Ur Barbiturates Sc reen Ur Phencyclidine S crn Ur Amphetamines Sc reen U Benzodiazepines Scrn Urine Cocaine Scre en U Marijuana (THC) Screen 10/31/19 10/31/19 10/31/19 17:30 17:30 17:30 WBC 9.8 RBC 4.44 Hgb 10.3 L Hct 34.7 L MCV 78.2 L MCH 23.2 L MCHC 29.7 L RDW 18.0 H Plt Count 320 MPV 11.4 H Neut % (Auto) 54.9 Lymph % (Auto) 35.2 Clark % (Auto) 6.3 Eos % (Auto) 2.9 Baso % (Auto) 0.4 Neut # (Auto) 5.4 Lymph # (Auto) 3.5 Clark # (Auto) 0.6 Eos # (Auto) 0.3 Baso # (Auto) 0.0 Nucleated RBC % (a uto) 0 Nucleated RBCs # 0.0 Sodium 137 Potassium 4.0 Chloride 102 Carbon Dioxide 24 Anion Gap 15.0 BUN 14 Creatinine 0.7 GFR Calculation 84.2 L Glucose 150 H POC Glucose Calculated Osmolal ity 283 L Calcium 8.8 Iron Ferritin Total Bilirubin 0.2 AST 23 ALT 24 Alkaline Phosphata se 120 H Troponin I 6 Hour Troponin I Hi Sens Del Troponin T Baselin e 6 Troponin T 120 Min [place] Troponin T Total Protein 7.3 Albumin 3.8 Globulin 3.5 TSH Urine Opiates Scre en Ur Barbiturates Sc reen Ur Phencyclidine S crn Ur Amphetamines Sc reen U Benzodiazepines Scrn Urine Cocaine Scre en U Marijuana (THC) Screen Vitals: Last Vital Signs Temp 97.9 F 11/01/19 12:14 Pulse 70 11/01/19 12:14 Resp 18 11/01/19 12:14 BP 123/59 11/01/19 12:14 Pulse Ox 95 11/01/19 12:14 Discharge Plan Discharge Patient Disposition: Home, Self-Care Condition: Stable Prescriptions: New atorvastatin 40 mg Tablet 20 mg PO BEDTIME Qty: 30 RF: 0 aspirin 325 mg tablet 325 mg PO DAILY Qty: 30 RF: 0 levothyroxine 125 mcg capsule 125 mcg PO DAILY Qty: 30 RF: 0 Continued omeprazole 20 mg capsule,delayed release(DR/EC) 20 mg PO DAILY RF: 0 pregabalin [Lyrica] 200 mg capsule 200 mg PO TID RF: 0 quetiapine [Seroquel] 25 mg tablet 25 mg PO QDAY 30 Days Qty: 90 RF: 3 albuterol sulfate [ProAir HFA] 90 mcg/actuation HFA aerosol inhaler 1 inh INHALATION Q4H 90 Days Qty: 24 RF: 3 glipizide 5 mg tablet 5 mg PO BIDAC 90 Days Qty: 180 RF: 3 fluticasone propionate 50 mcg/actuation spray,suspension 1 spray INTRANASAL DAILY RF: 0 tizanidine 4 mg tablet 4 mg PO BID PRN (Reason: muscle spasticity) Qty: 60 RF: 0 (DME) Accu-Chek Dayana Plus test strp Strip See Rx Instructions .ROUTE .MEDSUPPLY Qty: 100 RF: 3 (DME) lancets [Accu-Chek Softclix Lancets] Misc See Rx Instructions .ROUTE .MEDSUPPLY Qty: 50 RF: 11 metformin 1,000 mg tablet 500 mg PO BIDWM 90 Days Qty: 90 RF: 3 Discontinued aspirin [Adult Low Dose Aspirin] 81 mg tablet,delayed release (DR/EC) 81 mg PO QDAY RF: 0 levothyroxine 150 mcg capsule 150 mcg PO DAILY 90 Days Qty: 90 RF: 3 simvastatin 20 mg tablet 20 mg PO BEDTIME 90 Days Qty: 90 RF: 3 Discharge Orders: Discharge Order (Routine); Ordered 11/01/19 Ordered By: Owen Raymond Other Ambulatory Orders: Sestamibi Stress Test Request (Routine) Timeframe: 1 Week Facility: [facility] - Location: Card[facility] Diagnostic Laboratory Ordered By: Owen Raymond Referrals: Everardo Mejia MD [Primary Care Provider] - 4-7 days Discharge Diet: Cardiac and Diabetic Discharge Activity: Increase activity as tolerated Activity Restrictions/Additional Instructions: Keep appointment with vascular surgery. Reduce levothyroxine dose and consider repeat TSH 6 weeks Increase aspirin to 325 mg daily and change lovastatin to Lipitor as instructed. Return for any severe discomfort. 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
--- NOTE | 2019-11-01 14:30 | PC.NURSE ---
Discharge to home Instructed pt to follow-up with her pcp, dr. redd, dr armendariz as scheduled. Informed pt of the dose changes on her 3 home medicines. pt verbalizes understanding. informed pt on her outpatient lexiscan stress test. discharge papers provided to pt.
--- NOTE | 2019-11-01 21:15 | USR_ITS ---
PROCEDURE INFORMATION: Exam: US Duplex Lower Extremity Arteries Or Arterial Bypass Grafts Exam date and time: 11/01/2019 7:51 AM Age: 64 years old Clinical indication: Other: Intermittent claudication; Patient HX: Patient diabetic, smoker TECHNIQUE: Imaging protocol: Real-time ultrasound scan of the arteries of the bilateral lower extremities with 2-D mcnulty scale, color Doppler flow and spectral waveform analysis. Images documented and saved. COMPARISON: No relevant prior studies available. FINDINGS: Right common femoral artery: No occlusion or significant stenosis. Normal waveform. Right superficial femoral artery: No occlusion or significant stenosis. Normal waveform. Right popliteal artery: No occlusion or significant stenosis. Normal waveform. Right calf/foot arteries: Right HEATHER 0.9 consistent with mild peripheral arterial disease. Left common femoral artery: No occlusion or significant stenosis. Normal waveform. Left superficial femoral artery: No occlusion or significant stenosis. Normal waveform. Left popliteal artery: No occlusion or significant stenosis. Normal waveform. Left calf/foot arteries: Left HEATHER 0.7. Consistent with moderate peripheral arterial disease open (claudication zone). 2-1 velocity drop between the left popliteal artery and dorsalis pedis artery consistent with 50% stenosis, possibly in the region of the left anterior tibial artery. Other arteries: Bilateral arterial plaque. Biphasic/monophasic flow bilaterally from the right femoral artery inferiorly and the left iliac artery inferiorly. US/CV arterial duplex [facility] [id number] IMPRESSION: 1. Bilateral arterial plaque. 2. Right HEATHER 0.9 consistent with mild peripheral arterial disease. 3. Left HEATHER 0.7. Consistent with moderate peripheral arterial disease open (claudication zone). 4. Biphasic/monophasic flow bilaterally from the right femoral artery inferiorly and the left iliac artery inferiorly. 5. 2-1 velocity drop between the left popliteal artery and dorsalis pedis artery consistent with 50% stenosis, possibly in the region of the left anterior tibial artery.
--- NOTE | 2019-11-01 21:15 | USCV_ITS ---
Justin Keena Age: 64 Gender: F : 1955 Exam Date: 11/01/2019 08:32 Ordering Phys: Michelle Christensen MD Technologist: Malou Self Exam Location: [facility] [place] Indication: Angina BP: 135 / 69 HR: 72 Rhythm: Sinus Technical Quality: Technically difficult study MEASUREMENTS (Male / Female) Normal Values 2D ECHO LV Diastolic Diameter PLAX 3.7 cm 4.2 - 5.9 / 3.9 - 5.3 cm LV Systolic Diameter PLAX 1.6 cm LV Chamber Size 3.1 cm IVS Diastolic Thickness 1.6 cm 0.6 - 1.0 / 0.6 - 0.9 cm IVS Systolic Thickness 1.7 cm LVPW Diastolic Thickness 0.9 cm 0.6 - 1.0 / 0.6 - 0.9 cm LVPW Systolic Thickness 1.4 cm RV Chamber Size 2.0 cm LVOT Diameter 1.9 cm LV Ejection Fraction 2D Teich 88.8 % LA Diameter 4.1 cm LA Width 2.5 cm LA Height 5.4 cm RA Width 2.4 cm RA Height 3.6 cm Aorta at Sinotubular Diameter 2.2 cm M-MODE LV Diastolic Diameter MM 5.3 cm 4.2 - 5.9 / 3.9 - 5.3 cm LV Systolic Diameter MM 3.5 cm LV Ejection Fraction MM Teich 62.6 % IVS Diastolic Thickness MM 1.2 cm 0.6 - 1.0 / 0.6 - 0.9 cm IVS Systolic Thickness MM 1.7 cm LVPW Diastolic Thickness MM 1.3 cm 0.6 - 1.0 / 0.6 - 0.9 cm LVPW Systolic Thickness MM 1.8 cm Aortic Annulus Diameter 2.7 cm LA Ao Ratio MM 1.5 MV E Point Septal Separation 0.3 cm DOPPLER AV Peak Velocity 149.0 cm/s LVOT Peak Velocity 124.0 cm/s AV Area Cont Eq vti 2.6 cm squared AV Area Cont Eq pk 2.3 cm squared MV Area PHT 3.3 cm squared Mitral E to A Ratio 0.9 MV E' Velocity 9.0 cm/s Mitral E to MV E' Ratio 9.2 Mitral E to LV E' Lateral Ratio 10.7 Mitral E to LV E' Septal Ratio 8.1 TV Peak E Velocity 63.0 cm/s Right Atrial Pressure 3.0 mmHg PV Peak Velocity 80.0 cm/s RV Acceleration Time 0.1 s RV Ejection Time 0.3 s RV AcT/ET 0.4 FINDINGS Left Ventricle Study is relatively poor in quality. The ventricle is normal in size and function. Ejection fraction 60 to 65%. Grade 1 diastolic dysfunction. No obvious wall motion disturbances. Right Ventricle Normal right ventricular size and systolic function. Normal right ventricular systolic pressure. Right Atrium The right atrium is normal in size. Left Atrium Mildly increased left atrial size. Mitral Valve Mitral valve not well visualized. No obvious mitral regurgitation Aortic Valve Aortic valve not well visualized. No obvious aortic stenosis or aortic regurgitation Tricuspid Valve Structurally normal tricuspid valve. Trace tricuspid valve regurgitation. Pulmonic Valve Pulmonic valve not well visualized. Mild pulmonary valve regurgitation. Pericardium Normal pericardium without effusion. Aorta Normal ascending aorta dimension. CONCLUSIONS Study is relatively poor in quality. The ventricle is normal in size and function. Ejection fraction 60 to 65%. Grade 1 diastolic dysfunction. No obvious wall motion disturbances. Mildly increased left atrial size. No change from 01/11/2016 Dr. Franc Xie MD (Electronically Signed) Final Date: 01 Nov 2019 13:23 S
== END 2019-11-01 15:43 | disposition home or self-care (01) ==
LOC: ER 17:47 → CSU 19:41
PROVIDERS: Emergency Medicine; Admitting Provider Internal Medicine; PCP Family Medicine; Visit Provider Internal Medicine
DX: I20.0 Unstable angina (principal); I10 Essential (primary) hypertension; I73.9 Peripheral vascular disease, unspecified; E11.9 Type 2 diabetes mellitus without complications; E03.9 Hypothyroidism, unspecified; E66.9 Obesity, unspecified; F17.210 Nicotine dependence, cigarettes, uncomplicated; J44.9 Chronic obstructive pulmonary disease, unspecified; Z79.82 Long term (current) use of aspirin; Z79.84 Long term (current) use of oral hypoglycemic drugs; Z86.73 Personal history of transient ischemic attack (TIA), and cerebral infarction without residual deficits; Z87.11 Personal history of peptic ulcer disease
CPT/HCPCS: 12345; 36415; 36416; 71045; 80048; 80053; 80306; 82728; 82962; 83540; 84443; 84484; 85025; 93005; 93306; 93925; 96372; 99213; 99282; 99285; G0378; J1650; J2270

== ENCOUNTER → 2019-11-05 12:18 | Outpatient (BNVA) | payer MEDICARE, MEDICAID, SELFPAY | PROVIDERS: PCP Family Medicine; Visit Provider Anesthesiology Pain Medicine | DX: G89.29 Other chronic pain (principal); M47.816 Spondylosis without myelopathy or radiculopathy, lumbar region; M54.9 Dorsalgia, unspecified | CPT/HCPCS: 64493; 64494; 64495; J2001; J3490 ==

== ENCOUNTER 2019-11-12 07:16 | Outpatient (CLI) | payer MEDICARE, MEDICAID, SELFPAY ==
[2019-11-12 07:21] VITALS: BMI 35.4
--- NOTE | 2019-11-12 07:22 | ECG_ITS ---
NAME OF STUDY: LEXISCAN SESTAMIBI STRESS TEST INDICATION: Chest Pain PROCEDURE: At the baseline, the EKG revealed normal sinus rhythm with diffuse nonspecific T wave changes. The baseline blood pressure was 175/84 mm Hg with a heart rate of 85 beats/min. Lexiscan was infused over a period of 20 seconds. A total of 0.4 milligrams of Lexiscan was infused. The stress phase was continued for a total of 5 minutes. Heart rate at the end of the stress phase was 82 with a blood pressure 127/88. The EKG at the peak infusion revealed no significant changes. Sestamibi was injected 20 seconds after the Lexiscan infusion. Blood pressure at the end of the recovery phase was 123/70 with a heart rate of 75 per minute. CONCLUSION: 1. No significant EKG changes with the LexiScan infusion 2. No LexiScan induced chest pain or cardiac arrhythmia 3. Normal blood pressure and heart rate response 4. Sestamibi/sestamibi perfusion scan pending; see separate report. Electronically Signed On 11-14-2019 19:46:46 CDT by Blu Grossman M.D. [email or web address]
--- NOTE | 2019-11-12 07:22 | NMCV_ITS ---
NM izaiah perf SPECT r/s* [id number] Keena Anderson Age: 64 Gender: F : 1955 Exam Date: 11/12/2019 08:20 Ordering Phys: Owen Raymond MD Technologist: ABDULAZIZ Matias Exam Location: [facility] Indications: CHEST PAIN STRESS TEST Please see separate stress test report in [facility] for full findings IMAGE PROTOCOL Rest/Stress 1 Lexiscan Day Radiopharmaceutical Dose (mCi) Administration Site Administered by Rest: Tc-99m 10.7 IV ABDULAZIZ Mcgraw Sestamibi Stress:Tc-99m 32.4 IV ABDULAZIZ Mcgraw Sestamibi Rest: 12-Nov-2019 60 Discovery 630 Stress: 12-Nov-2019 30 Discovery 630 0.4mg Lexiscan. Images obtained in supine and prone position. SPECT RESULTS Technical Quality: Excellent Raw Data Analysis: Breast attenuation Image Corrections: No attenuation or motion correction applied Summed Stress Score: 7 Summed Rest Score: 12 Summed Difference Score: 2 PERFUSION FINDINGS Large area of reduced tracer uptake noted in basal to distal anterior wall on the rest images which improved significantly over stress images suggestive of artifact. Medium-sized area of fixed perfusion defect noted in basal to mid inferior inferolateral wall surrounded by medium-sized area of moderate reversibility noted in mid to distal inferior and inferolateal wall suggestive of ischemia in RCA territory. FUNCTIONAL RESULTS (calculated via Gated SPECT) Stress Image LV EF (%): 74 Stress EDV (mL):74 TID: 0.95 Stress ESV (mL):19 FUNCTIONAL FINDINGS: There is normal left ventricular systolic function. 74 IMPRESSIONS Medium-sized area of moderate ischemia noted in mid to distal inferior and inferolateral wall suggestive of lesion in RCA territory. EKG segment will be documented separately. Michelle Draper MD (Electronically Signed) Final Date: 12 November 2019 16:11 S
--- NOTE | 2019-11-12 08:59 | SUR.PREOP ---
Patient reports no pain or discomfort prior to the start of the stress test.
[2019-11-12] MEDS: regadenoson 0.4 Mg/5 ml Syringe IVP (09:00)
[2019-11-12 09:07] VITALS: BP 132/75; PULSE 79
--- NOTE | 2019-11-25 12:02 | PC.SOCIAL ---
Followed up regarding email sent to Leticia regarding stress test result. The email did not go through. Followed up today with Leticia by phone and let her know Dr Raymond asked that results of stress test be communicated to Dr Mejia. Leticia sent message to Dr Mejia with information and they will follow up. Thanked her for her time.
== END 2019-11-12 07:17 | disposition home or self-care (01) ==
PROVIDERS: PCP Family Medicine; Visit Provider Internal Medicine
DX: R07.9 Chest pain, unspecified (principal); I25.9 Chronic ischemic heart disease, unspecified
CPT/HCPCS: 78452; 93017; A9500; J2785

== ENCOUNTER → 2019-11-19 09:25 | Outpatient (BNVA) | payer MEDICARE, MEDICAID, SELFPAY | PROVIDERS: PCP Family Medicine; Visit Provider Anesthesiology Pain Medicine | DX: G89.29 Other chronic pain (principal); M47.816 Spondylosis without myelopathy or radiculopathy, lumbar region; M54.16 Radiculopathy, lumbar region; M54.9 Dorsalgia, unspecified; M62.830 Muscle spasm of back; E11.51 Type 2 diabetes mellitus with diabetic peripheral angiopathy without gangrene; F17.210 Nicotine dependence, cigarettes, uncomplicated | CPT/HCPCS: 99213; 99214 ==

== ENCOUNTER 2019-11-20 08:45 | Outpatient (CLI) | payer MEDICARE, MEDICAID, SELFPAY ==
--- NOTE | 2019-11-20 09:00 | CT_ITS ---
WS: [id number] CTA ABDOMINAL AORTA WITH RUNOFF TECHNIQUE: Contrast enhanced CTA of the abdominal aorta with bilateral lower extremity runoff. Multip lanar reformatted images were obtained. MIP reformats were also reviewed. CLINICAL INFORMATION: leg pain COMPARISON: None. DLP: 1385.[address] scans at [facility] use at least one of these dose optimization techniques: automat ed exposure control; mA and/or kV adjustment per patient size (includes targeted exams where dose is matched to clinical indication); or iterative reconstruction. FINDINGS: Moderate esophageal hiatal hernia. 2.1 cm calculus or polypoid lesion within the gallbladde r. This is near the gallbladder neck. Recommend further evaluation with ultrasound. Mild diffuse fatt y infiltration of the liver. Normal spleen. Adrenal glands are normal. Normal renal parenchymal enhan cement. No hydronephrosis. Mild fatty atrophy of the pancreas. Moderate calcified atheromatous diseas e abdominal aorta. No abdominal aortic aneurysm. Tiny aneurysm measuring 2.0 x 1.4 CM. Celiac and SMA are patent. Sigmoid colon is normal. Fat-containing umbilical hernia. No periaortic or retroperitoneal lymphadeno paloma. No iliac lymphadenopathy. Hypertrophic changes lower thoracic and lumbar spine. RIGHT: Right common iliac artery is patent. Moderate calcified atheromatous disease. Calcified right internal iliac artery. Right external iliac artery is patent. Common femoral artery is patent. Superf icial femoral artery is patent. Moderate calcified atheromatous disease at the SFA junction. Deep fem oral artery is patent. Mild segmental atheromatous narrowing superficial femoral artery which remains patent. Popliteal artery is patent. Popliteal artery is patent to the trifurcation with three-vessel runoff to the ankle. LEFT: Dense calcified atheromatous disease at the common iliac origin with severe stenosis. Somewhat diminutive but patent common iliac artery. Heavily calcified internal iliac artery. External iliac ar rhonda is patent. Common femoral artery is patent. Deep femoral artery is patent. Mild segmental narrow ing in the superficial femoral artery which is patent to the adductor hiatus. Mild calcified atheroma tous disease popliteal artery which is patent to the trifurcation. Three-vessel runoff to the ankle. Dominant posterior tibial runoff. CT/CT angio abd aorta runof [id number] IMPRESSION: 1. Severe high-grade stenosis involving the LEFT common iliac artery origin wi th calcified atheromatous disease. 2. LEFT lower extremity runoff is otherwise patent with three-vessel runoff to the ankle. Dominant posterior tibial runoff. 3. Mild to moderate atheromatous disease RIGHT lower extremity runoff with thr ee-vessel runoff to the ankle. No high-grade stenosis. 4. Moderate calcified atheromatous disease abdominal aorta with small aneurysm measuring 1.9 x 1.4 CM. 5. 2.1 cm gallbladder calculus or polypoid mass involving the gallbladder near the gallbladder neck. Recommend further evaluation with ultrasound. 6. Moderate esophageal hiatal hernia.
[2019-11-20] MEDS: iohexol 350 mg/mL 100 mL Btl IV (09:21)
== END 2019-11-20 08:46 | disposition home or self-care (01) ==
LOC: RADWPI 08:49
PROVIDERS: Family Provider Family Medicine; PCP Family Medicine; Visit Provider Thoracic Surgery (Cardiothoracic Vascular Surgery)
DX: M79.606 Pain in leg, unspecified (principal); I70.8 Atherosclerosis of other arteries; I70.0 Atherosclerosis of aorta; K80.20 Calculus of gallbladder without cholecystitis without obstruction; K44.9 Diaphragmatic hernia without obstruction or gangrene
CPT/HCPCS: 75635; Q9967

== ENCOUNTER → 2019-11-28 13:44 | Outpatient (BNVA) | payer MEDICARE, MEDICAID, SELFPAY | PROVIDERS: PCP Family Medicine; Visit Provider Anesthesiology Pain Medicine | DX: G89.29 Other chronic pain (principal); M47.816 Spondylosis without myelopathy or radiculopathy, lumbar region; M54.9 Dorsalgia, unspecified; F17.210 Nicotine dependence, cigarettes, uncomplicated | CPT/HCPCS: 64493; 64494; 64495; J2001; J3490 ==

== ENCOUNTER → 2019-12-11 15:15 | Outpatient (BNVA) | payer MEDICARE, MEDICAID, SELFPAY | PROVIDERS: PCP Family Medicine; Visit Provider Internal Medicine Cardiovascular Disease | DX: I73.9 Peripheral vascular disease, unspecified (principal) | CPT/HCPCS: 80048; 85025; 87635 ==

== ENCOUNTER 2019-12-16 10:55 | Observation (INO) | payer MEDICARE, MEDICAID, SELFPAY ==
[2019-12-15 08:51] VITALS: BMI 35.9
--- NOTE | 2019-12-15 10:30 | SUR.PREOP ---
When speaking with the patient via telephone this AM she stated that she was told by Dr. Draper at last visit that the procedure was a cardiac angiogram instead of a peripheral angiogram due to a recent positive stress test. Dr. Draper was asked in person by this nurse and orders were received for a [facility] tomorrow, December 16, 2019 at 0830. The appropriate orders were placed in the chart.
[2019-12-16] VITALS (30 sets, daily range): BP systolic 113–162; BP diastolic 49–95; PULSE 65–79; RESP 13–27; TEMP 36.7–36.8; O2SAT 93–100; BMI 35.9
[2019-12-16] MEDS: diphenhydrAMINE 50 mg Capsule PO (08:00)
[2019-12-16 08:19] LABS: Basophils # 0.1 10^3/uL (0.0-0.1); Basophils % 0.6 %; Eosinophils # 0.2 10^3/uL (0.0-0.8); Eosinophils % 2.8 %; Hematocrit 36.4 % (37.0-47.0); Hemoglobin 10.7 g/dL (11.5-15.3); Lymphocytes % 35.4 %; Mean Corpuscular HGB Conc 29.4 g/dL (30.0-36.0); Mean Corpuscular Hemoglobin 22.7 pg (28.0-34.0); Mean Corpuscular Volume 77.1 fL (81-99); Mean Platelet Volume 11.6 fL (7.4-10.4); Monocytes # 0.6 10^3/uL (0.2-0.9); Monocytes % 6.8 %; Neutrophils # 4.63 10^3/uL (1.8-7.7); Neutrophils % 53.9 %; Nucleated Red Blood Cells % 0 %; Platelet Count 400 10^3/cmm (130-400); Red Blood Count 4.72 10^6/uL (4.1-5.3); Red Cell Distribution Width 17.6 % (12.1-15.1); White Blood Count 8.6 10^3/uL (4.0-10.0)
--- NOTE | 2019-12-16 08:30 | XACV_ITS ---
Ht: 160 cm Wt: 92 kg BSA: 2.07 m2 Gender: Female : 1955 Any Known Allergies: Other Exam Priority: Routine Procedure(s): Procedure Description: Diagnostic procedure Procedure Description: PCI procedure Procedure Description: Drug Eluting Coronary Stent Procedure Description: PTCA Procedure Description: Coronary Angiography Diagnostic Cath Status: Elective Diagnostic Findings LM has 0% stenosis. dLAD: Moderate 50% stenosis, SAURABH: 3 flow. Mid Circumflex Coronary Artery: Severe 95% stenosis, SAURABH: 3 flow. Mid Circumflex Coronary Artery: Severe 85% stenosis, SAURABH: 3 flow. Proximal Right Coronary Artery: Severe 95% stenosis, SAURABH: 2 flow. mRCA: Severe 100% stenosis, SAURABH: 3 flow. dCIRC to RPAV collateralization. Coronary angiography shows right dominance. PCI Indication: Other Interventional Findings Mid Circumflex Coronary Artery: 95% stenosis treated with AB TREK 2.50X12 RX BALLOON, MDT R SULEMA 3.0X8 RUT, and MDT R SULEMA 2.75X12 RUT. 0% residual stenosis, SAURABH: 3 flow. Mid Circumflex Coronary Artery: 85% stenosis treated with Drug Eluting Stent. 0% residual stenosis, SAURAHB: 3 flow. Proximal Right Coronary Artery: 95% stenosis treated with MDT R SULEMA 3.0X12 RUT and MDT NC EUPHORA RX [id number] BALLOON. 0% residual stenosis, SAURABH: 3 flow. Conclusions There is severe coronary artery disease with three vessel disease. Mid Circumflex Coronary Artery was treated with Balloon and two Drug Eluting Stent. Mid Circumflex Coronary Artery was treated with Drug Eluting Stent. Proximal Right Coronary Artery was treated with Drug Eluting Stent and Balloon. Recommendations 1-Return to inpatient for close monitoring and routine cath care 2-Risk factor modification for secondary prevention 3-Statin and aspirin 81 mg life--long, if tolerated 4-Patient was pre-loaded with 300 mg of Plavix, continue Plavix 75mg p.o. daily for at least one year. We will assess at the end of one year again to continue if further or not 5-Continue optimal medical management 6-Follow up with Dr. Draper in four weeks and your primary care in 10 days . Interventional RX Recommendation: PCI w/o planned CABG Diagnostic RX Recommendation: PCI w/o planned CABG Pressures Phase:Rest AO : 133 mmHg / 67 mmHg ( 92 mmHg ) @ 4:05:00 AM 70 mmHg / 31 mmHg ( 48 mmHg ) @ 4:36:00 AM Clinical Evaluation EBL: 5mL-10mL Procedural Details Procedure Consent Obtained. Pre-Procedure Time Out. Identified patient by full name and date of as verbalized by the patient/guarantor. Does the consent match the physician's order: Yes. Accurate & Complete Informed Consent: Yes. Inpatient/Outpatient History & Physical on Chart: Yes. If H&P is completed, is and addenduem needed: No; If yes, is the addendum complete: N/A. Visualize and Verify Site with Patient/Guarantor: N/A. Relevant Radiology Images available: Yes. Pre-op teaching completed and patient verbalized understanding. The risks, benefits, and alternatives of sedation and/or procedure were discussed by physician. The patient agrees to continue. Procedure started. Correct patient, site and procedure confirmed by cath team. Current diagnosis: Chest Pain. PERRLA. Strong, equal hand medical examiner bilaterally. Lungs clear x 5 lobes. IV Site on Arrival: 20 gauge in the left anticubital. IV Fluids: 0.9% NaCl at KVO. 0 mL infused prior to laboratory chemist. Pre Procedural Pulses: bilateral dorsalis pedis was Doppled. Pre Procedural Pulses: bilateral posterior tibial was Doppled. Pre Procedural Pulses: bilateral radial was 3+. Oxygen started at 2liters/min via nasal canula. right radial was prepped with chloroprep then draped in the usual sterile fashion. bilateral groins was prepped with chloroprep then draped in the usual sterile fashion. Physician notified. Baseline sample Acquired. HR: 68 BPM. Equipment: 6F - Radial. iRezQ Manifold Kit Model BT 2000. Cardiac Cath Pack. Heparinized Saline (2 units/mL), 1000 mL bag. Baseline sample Acquired. HR: 69 BPM. Physician arrived. Physician scrubbed in. Immediate Pre-Procedure Time Out. Correct Patient: Yes; Correct Procedure: Yes; Correct Site: Yes; Correct Patient Position: Yes; Correct Supplies: Yes; Dried Flammable Prep: Yes; Blood Products Available: No;. Lidocaine 1% infiltrated to the right radial. Arterial access obtained. A 6 solomon islander TIG catheter in over wire. Multiple views taken of left coronary artery. Catheter redirected to the RCA. Multiple views taken of right coronary artery. 6 solomon islander XB 3 guide catheter was inserted over the wire. [place] guidewire was advanced through the guide catheter to lesion in the mid Circ. Inflation number : 1 A AB TREK 2.50X12 RX BALLOON was prepped and advanced across the Mid CX , then inflated to 12 TYRESE for 0:12 seconds. Inflation number: 2 The AB TREK 2.50X12 RX BALLOON was reinflated across the Mid CX, to 14 TYRESE for 0:11 seconds. Balloon out. Inflation Number : 3 A MDT R SULEMA 3.0X8 RUT -Lot Number# [id number] was prepped and advanced across the Mid CX. The stent was deployed at 16 TYRESE for 0:20 seconds. Stent expiration date: 07-15-2021. Inflation Number : 4 A MDT R SULEMA 2.75X12 RUT -Lot Number# [id number] was prepped and advanced across the Mid CX. The stent was deployed at 16 TYRESE for 0:28 seconds Stent expiration date: 06/30/2021. Inflation number: 5 The stent balloon was then re-inflated across the Mid CX to 18 TYRESE for 0:12 seconds. Balloon out. 250ml bolus infusing. Wire out. 6 solomon islander JR 4 SH guide catheter was inserted over the wire. ACT drawn. Results 200 seconds. Therapeutic limits - pre-heparin administration 90-150 seconds and monitoring heparin during a vascular procedure >250 seconds. Inflation Number : 1 A MDT R SULEMA 3.0X12 RUT -Lot Number#[id number] was prepped and advanced across the Prox RCA. The stent was deployed at 16 TYRESE for 0:09 seconds. Stent expiration date: 06/30/2021. Stent balloon out over wire. Inflation number : 2 A MDT NC EUPHORA RX [id number] BALLOON was prepped and advanced across the Prox RCA , then inflated to 14 TYRESE for 0:19 seconds. Inflation number: 3 The MDT NC EUPHORA RX [id number] BALLOON was reinflated across the Prox RCA, to 10 TYRESE for 0:18 seconds. Balloon out. ACT drawn. Results 281 seconds. Therapeutic limits - pre-heparin administration 90-150 seconds and monitoring heparin during a vascular procedure >250 seconds. Guide catheter out. [place]field wire out. Vital chart was stopped. Sheath(s) sutured into position with 2-0 silk and sterile 4x4's and Op-site applied over the site. No oozing or signs and symptoms of hematoma noted. Arterial sheath flushed and connected to tranducer and pressure bag with heparinized saline. Post Procedure: Pulses reassessed and unchanged. PERRLA. Strong, equal hand medical examiner bilaterally. No VTE prophylaxis required. Medication's Wasted: Lidocaine 1% = 18 mL. Medication's Wasted: Nitro = 49.4 mL. Medication's Wasted: Heparin = 4000 units mL. Medication's Wasted: Other = Versed 1 mg. Total IV fluids: 250 mL. Contrast type used: Visipaque 320 mgI/mL, 500 mL bottle. PCI Indication: New Onset Angina. Post-op diagnosis: Multivessel CAD. Complications: None. Estimated blood loss: 5mL-10mL. Procedure completed. Patient transferred by wheelchair to 1st floor. Site: Right Radial artery Sheath Size: 6 Fr Hemostasis Success: Unsuccessful Procedure Medications Start: 8:51 AM Stop: 8:51 AM Medication: Versed Amount: 1 mg Route: I.V. Start: 8:51 AM Stop: 8:51 AM Medication: Fentanyl Amount: 50 mcg Route: I.V. Start: 9:00 AM Stop: 9:00 AM Medication: Versed Amount: 1 mg Route: I.V. Start: 9:02 AM Stop: 9:02 AM Medication: Nitrogylcerin Amount: 200 mcg Route: I.A. Start: 9:04 AM Stop: 9:04 AM Medication: Heparin Amount: 5000 units Route: I.V. Start: 9:11 AM Stop: 9:11 AM Medication: Heparin Amount: 5000 units Route: I.V. Start: 9:15 AM Stop: 9:15 AM Medication: Versed 1 mg and Fentanyl 25 mcg Amount: 1 Route: I.V. Start: 9:30 AM Stop: 9:30 AM Medication: Nitrogylcerin Amount: 200 mcg Route: I.A. Start: 9:46 AM Stop: 9:46 AM Medication: Heparin Amount: 2000 units Route: I.V. Start: 9:59 AM Stop: 9:59 AM Medication: Nitrogylcerin Amount: 200 mcg Route: I.A. I, the attending physician, have reviewed and verified all procedure medications. Yes, all medications given per verbal order History/Risk Factors Hypertension: No Dyslipidemia: Yes Diabetic Therapy: Oral Peripheral Arterial Disease (PAD): Yes Myocardial Infarction ([place]): No Obesity: Yes Renal Disease: No Tobacco Use: Current/Recent(w/in 1 year) Prior Interventions PCI: Yes CABG: No Valve Surgery: No Date of PCI: 11/16/2019 Report Signatures Finalized by:Michelle Draper MD on 01/01/2020 1:17:05 AM
[2019-12-16 08:43] LABS: Anion Gap 14.4 (5-19); Blood Urea Nitrogen 11 mg/dL (8-23); Calcium 9.4 mg/dL (8.5-10.5); Carbon Dioxide 27 mmol/L (22-29); Chloride 102 mmol/L (98-107); Glomerular Filtration Rate 84.2 mL/min (90-130); Glucose 132 mg/dL (65-115); Osmolality Calculated 286 mOsm/kg (285-295); Potassium 4.4 mmol/L (3.5-5.1); Sodium 139 mmol/L (136-145)
--- NOTE | 2019-12-16 10:28 | SUR.PREOP ---
HOLDING Patient returned to [facility] pending bed opening on CSU. V/S and assessments per flowsheet. MD to discuss finding and results with patient. Family aware over the telephone by Dr Draper. Call light placed within reach. Informed to call for needs.
--- NOTE | 2019-12-16 10:50 | SUR.PHASEI ---
Transfer Transferred by bed to U 107. Report to Kortney TIRADO.
--- NOTE | 2019-12-16 11:27 | PC.CHAP ---
Pastoral Care Encounter/Spiritual Assessment Type of Contact [] Declined cartridge maker visit [] Patient/Family/Request visit [] Outpatient visit [] Follow-up visit [] Physician referral [] Code/Alert [] Routine visit [] Staff referral [] Actively dying [] Patient sleeping [] Family support [] [] Out of room [] Palliative care [] [] Receiving care in room [] Pre-surgical visit [] Trauma [] Long length of stay [] ICU visit [x] Other: Patient intubatedPatient intubated Relational/Emotional Strength [] Patient feels connected with others/family/visitors/staff [] Distress [] Loneliness/isolation [] Abandonment Spirituality of Patient [] Person of Myra [] Attends Religious of their Myra [] Believes in Prayer [] Reads Bible or Taoism materials [] There are Spiritual issues to be addressed Trimming Cutter Machine Interventions [] Prayer [] Active listening [] Non-anxious presence [] Spiritual/emotional support [] Crisis/trauma care [] Spiritual counseling [] Bereavement support [] Provided bereavement packet [] Provided Bible/devotional materials [] Provided toy/stuffed animal, coloring book to patient or family member [] Provided Communion [] Anointing/[place] [] Salvation [] Completed spiritual assessment [] Other: Impact on Illness or Injury [] Angry [] Fearful [] Anxious [] Often cries [] Exhaustion [] Unable to work [] Unable to attend moravian [] Unable to walk/stand [] Unable to read [] Unable to drive [] Unable to eat/drink [] Unable to sleep [] Unable to be with family [x] Patient intubated [] Other: Summary Patient intubated Time spent with patient 5 mins
--- NOTE | 2019-12-16 12:48 | PC.NURSE ---
Patient arrived to unit at 1055. Report received bedside from Reji TIRADO from dairy and food laboratory assistant. Patient has a TR band in place to right radial artery. 15 mL of air in place in TR band. No hematoma or bleeding present. IV to left AC space.
--- NOTE | 2019-12-16 14:02 | PC.NURSE ---
TR band let down per protocol 1-3 ml per every 5 min patient tolerated well no hematoma or bleeding noted clear bandage in place vital sign stable through out will continue to monitor.
[2019-12-16] MEDS: pregabalin 100 mg Capsule 200 MG PO ×2 (14:03→20:02)
[2019-12-16] MEDS: albuterol 8 gm MDI INHALATION (15:19)
[2019-12-16] MEDS: atorvastatin 40 mg Tablet 20 MG PO (17:11)
[2019-12-16] MEDS: quetiapine 25 mg Tablet PO (20:02)
--- NOTE | 2019-12-16 20:06 | PC.NURSE ---
DRESSING TO RIGHT WRIST IS C/D/I. PT EDUCATED TO NOT USE THE RIGHT ARM TO PUSH OR PULL. VS WNL. WILL CONTINUE TO MONITOR.
[2019-12-17 04:30] VITALS: PULSE 78; RESP 18; O2SAT 95
[2019-12-17 04:40] VITALS: BP 114/59; PULSE 71; RESP 19; O2SAT 92
--- NOTE | 2019-12-17 05:20 | PC.NURSE ---
End of shift: Patient had a uneventful shift. Patient has had no complaints of pain. R wrist is clean dry and intact. No hematoma noted. Patient has rested well Will continue to monitor.
--- NOTE | 2019-12-17 06:50 | PC.NURSE ---
Patient up to chair upon first rounding this morning. Patient denies chest pain or any other complication. Right radial access dressing CDI, asymptomatic. No needs identified at this time. Nurse to continue to monitor.
[2019-12-17 07:38] VITALS: BP 110/71; PULSE 69; RESP 18; TEMP 36.3; O2SAT 94
--- NOTE | 2019-12-17 09:27 | PC.RESP ---
Smoking Cessation and Pulmonary Rehab information sent to patient with a schedule of classes.
[2019-12-17] MEDS: levothyroxine 125 mcg Tablet PO (09:34)
[2019-12-17] MEDS: pantoprazole DR 40 mg Tablet PO (09:34)
[2019-12-17] MEDS: pregabalin 100 mg Capsule 200 MG PO (09:35)
[2019-12-17] MEDS: nicotine 14 mg Patch 1 PATCH TRANSDERMA (09:35)
[2019-12-17] MEDS: clopidogrel 75 mg Tablet PO (09:35)
--- NOTE | 2019-12-17 09:39 | PC.CHAP ---
Pastoral Care Encounter/Spiritual Assessment Type of Contact [] Declined measurement technician visit [] Patient/Family/Request visit [] Outpatient visit [] Follow-up visit [] Physician referral [] Code/Alert [x] Routine visit [] Staff referral [] Actively dying [] Patient sleeping [] Family support [] [] Out of room [] Palliative care [] [] Receiving care in room [] Pre-surgical visit [] Trauma [] Long length of stay [] ICU visit [] Other: Relational/Emotional Strength [] Patient feels connected with others/family/visitors/staff [] Distress [] Loneliness/isolation [] Abandonment Spirituality of Patient [] Person of Myra [] Attends Sikhism of their Myra [] Believes in Prayer [] Reads Bible or Druze materials [] There are Spiritual issues to be addressed Information Management Officer Interventions [x] Prayer [x] Active listening [x] Non-anxious presence [x] Spiritual/emotional support [] Crisis/trauma care [] Spiritual counseling [] Bereavement support [] Provided bereavement packet [] Provided Bible/devotional materials [] Provided toy/stuffed animal, coloring book to patient or family member [] Provided Communion [] Anointing/[place] [] Salvation [x] Completed spiritual assessment [] Other: Impact on Illness or Injury [] Angry [] Fearful [] Anxious [] Often cries [] Exhaustion [] Unable to work [] Unable to attend roman catholic [] Unable to walk/stand [] Unable to read [] Unable to drive [] Unable to eat/drink [] Unable to sleep [] Unable to be with family [] Patient intubated [] Other: Summary Patient feeling better Time spent with patient 5 min
[2019-12-17 10:51] VITALS: PULSE 74; RESP 16; O2SAT 95
[2019-12-17 11:31] VITALS: BP 125/76; PULSE 76; RESP 18; TEMP 36.4; O2SAT 95
--- NOTE | 2019-12-17 11:46 | P.SS_ITS ---
Short Stay Summary Providers Date of Admit/Discharge: 12/17/19 Attending Provider: Michelle Draper MD Primary Care Provider: Everardo Mejia MD Chief Complaint: peripheral HPI History of Present Illness Keena Anderson is a 64 year old female past medical history significant for severe peripheral vascular disease, tobacco abuse continuous, hypertension, hyperlipidemia, obesity and diabetes mellitus for worsening of claudication and chest pain underwent CTA of the lower extremity and stress test for her heart. She was noted to have ischemia in circumflex/RCA territory. CTA was also suggestive of severe peripheral vascular disease, it was thought that we should proceed with left heart cath since patient was having effort angina. It is the reason she underwent left heart cath yesterday which was suggestive of severe two-vessel disease requiring placement of stents to in circumflex and 1 in proximal RCA. Postop course remain uncomplicated. This morning patient is walking around without any difficulty her right wrist wound looks good. She denies any chest pain shortness of breath PND orthopnea. She has been started on Plavix. For her peripheral angiogram we will bring her back in 2 weeks for lifestyle limiting claudication. She will be discharged now and will be seen by Pat Thomas cardiology nurse practitioner in 7 days. Home Meds/Allergies Home Medications and Allergies Home Medications Medication Instructions Recorded Confirmed Type omeprazole 20 mg capsule,delayed 20 mg PO DAILY 05/30/19 12/16/19 History release fluticasone propionate 50 1 spray INTRANASAL DAILY PRN 10/31/19 12/16/19 History mcg/actuation nasal spray,suspension atorvastatin 20 mg PO QPM 12/15/19 12/16/19 History Allergies Allergy/AdvReac Type Severity Reaction Status Date / Time clarithromycin [From Biaxin] Allergy Thrush Verified 12/16/19 08:10 codeine Allergy ADR-Nausea Verified 12/16/19 08:10 PFSH Acute PFSH: Medical History Angina of effort Chronic back pain Chronic rhinitis COPD (chronic obstructive pulmonary disease) Deviated septum Diabetes GERD (gastroesophageal reflux disease) H/O: CVA (cerebrovascular accident) Hiatal hernia History of incarceration Hypertension 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 Methamphetamine abuse Nasal turbinate hypertrophy Pain management contract signed Peptic ulcer disease PVD (peripheral vascular disease) Nikita's edema of vocal folds Tobacco abuse Surgical History H/O cataract History of appendectomy S/P tubal ligation Family History Father CAD (coronary artery disease) Diabetes Mother Diabetes Brother Diabetes Grandfather CAD (coronary artery disease) Other Cancer Social History Smoking and tobacco status: current every day smoker Alcohol intake: never Household members: none Marital status: Current occupational status: disabled History of recent travel: No Vitals/I&O/Wt Last Vital Signs Temp 97.6 F 12/17/19 11:31 Pulse 76 12/17/19 11:31 Resp 18 12/17/19 11:31 BP 125/76 12/17/19 11:31 Pulse Ox 95 12/17/19 11:31 12/16/19 12/17/19 12/17/19 22:59 06:59 14:59 Intake Total 1400 / 2120 Output Total 400 / 1200 1100 / 2300 Balance 1000 / 920 -1100 / -180 Weight last 48 hrs Weight 203 lb Physical Exam Narrative: EXAM NARRATIVE: GENERAL: Patient is alert, awake and oriented x3. NECK: No jugular vein distension. HEENT: No cyanosis. No icterus. No pallor. HEART: Regular S1 and S2. No murmur, rub or gallop. LUNGS: Clear to auscultate bilaterally. ABDOMEN: Soft, nontender and nondistended. Positive bowel sounds. No guarding, rebound or tenderness. CENTRAL NERVOUS SYSTEM: Grossly nonfocal. EXTREMITIES: Lower extremities without edema bilaterally. Right wrist wound looks good no hematoma. Hospital Course Discharge Summary: As above SSS Data Data Completed and Pending: Pending at discharge Category Date Time Status HAND BOX FOLDER request for service Routin e Exams 12/16/19 08:30 Taken Discharge Plan Discharge Patient Disposition: Home, Self-Care Condition: Stable Prescriptions: New clopidogrel 75 mg Tablet 75 mg PO DAILY Qty: 90 RF: 4 aspirin [Aspirin Low Dose] 81 mg tablet,delayed release (DR/EC) 81 mg PO DAILY Qty: 90 RF: 4 pantoprazole [Protonix] 40 mg tablet,delayed release (DR/EC) 40 mg PO DAILY Qty: 90 RF: 2 Continued quetiapine [Seroquel] 25 mg tablet 25 mg PO QDAY 30 Days Qty: 90 RF: 3 albuterol sulfate [ProAir HFA] 90 mcg/actuation HFA aerosol inhaler 1 inh INHALATION Q4H 90 Days Qty: 24 RF: 3 glipizide 5 mg tablet 5 mg PO BIDAC 90 Days Qty: 180 RF: 3 fluticasone propionate 50 mcg/actuation spray,suspension 1 spray INTRANASAL DAILY PRN (Reason: Allergy Symptoms) RF: 0 nicotine [Nicoderm CQ] 14 mg/24 hr patch 24 hour 1 patch TRANSDERMA DAILY Qty: 28 RF: 1 clopidogrel [Plavix] 75 mg tablet 75 mg PO DAILY Qty: 90 RF: 3 isosorbide mononitrate 30 mg tablet extended release 24 hr 15 mg PO BID Qty: 90 RF: 3 (DME) Accu-Chek Dayana Plus test strp Strip See Rx Instructions .ROUTE .MEDSUPPLY Qty: 100 RF: 3 (DME) lancets [Accu-Chek Softclix Lancets] Misc See Rx Instructions .ROUTE .MEDSUPPLY Qty: 50 RF: 11 metformin 1,000 mg tablet 500 mg PO BIDWM 90 Days Qty: 90 RF: 3 pregabalin [Lyrica] 200 mg capsule 200 mg PO TID Qty: 90 RF: 5 levothyroxine 125 mcg capsule 125 mcg PO DAILY Qty: 90 RF: 3 atorvastatin 20 mg Tablet 20 mg PO QPM RF: 0 Discontinued omeprazole 20 mg capsule,delayed release(DR/EC) 20 mg PO DAILY RF: 0 Discharge Orders: Discharge Order (Routine); Ordered 12/17/19 Ordered By: Michelle Draper Referrals: Michelle Draper MD [Physician] - Discharge Diet: Cardiac Discharge Activity: Increase activity as tolerated Patient Instructions: Left Heart Catheterization (DC) Activity Restrictions/Additional Instructions: Please see Pat Thomas in 7 days. Please schedule patient for peripheral angiogram in 2 to 3 weeks. Attestations Medical Necessity Statement*: Patient can be discharged home Time Spent in Patient Care*: less than 30 min Specific Discharge Activities: Specific discharge activities: educating patient Quality Metrics Clinical Quality Measures: During this hospital stay, did patient experience: None Coding Level of Care Code Established Pt Acute Rigging Slinger for Chg Fwd Patient Type Established History Expanded Problem Focused Exam Expanded Problem Focused Medical Decision Making Moderate Complexity
[2019-12-17 12:25] VITALS: BP 125/76; PULSE 76; RESP 18; TEMP 36.4; O2SAT 95
--- NOTE | 2019-12-17 13:47 | PC.NURSE ---
Discharge instructions given per the physician's instructions. Patient educated on importance of smoking cessation and resources to help quit as well as post angiogram care and activity restrictions. Patient verbalized understanding of information and did not have any further questions. Medications were delivered to bedside.
== END 2019-12-17 13:50 | disposition home or self-care (01) ==
LOC: CSU 12-17 03:33
PROVIDERS: Admitting Provider Internal Medicine Cardiovascular Disease; PCP Family Medicine; Visit Provider Internal Medicine Cardiovascular Disease
DX: I25.10 Atherosclerotic heart disease of native coronary artery without angina pectoris (principal); I73.9 Peripheral vascular disease, unspecified; F17.210 Nicotine dependence, cigarettes, uncomplicated; I10 Essential (primary) hypertension; E78.5 Hyperlipidemia, unspecified; E66.9 Obesity, unspecified; Z68.36 Body mass index [BMI] 36.0-36.9, adult; E11.9 Type 2 diabetes mellitus without complications; J44.9 Chronic obstructive pulmonary disease, unspecified; Z86.73 Personal history of transient ischemic attack (TIA), and cerebral infarction without residual deficits; Z87.11 Personal history of peptic ulcer disease; Z82.49 Family history of ischemic heart disease and other diseases of the circulatory system; Z83.3 Family history of diabetes mellitus
CPT/HCPCS: 12345; 80048; 85025; 85347; 93454; 94640; C1725; C1769; C1874; C1887; C1894; C9600; C9601; G0378; J1644; J2250; J3010; J3490; J3535; J7030; Q0163; Q9967

== ENCOUNTER → 2019-12-23 09:30 | Outpatient (BNVA) | payer MEDICARE, MEDICAID, SELFPAY | PROVIDERS: PCP Family Medicine; Visit Provider Nurse Practitioner Family | DX: I25.10 Atherosclerotic heart disease of native coronary artery without angina pectoris (principal); I73.9 Peripheral vascular disease, unspecified; F17.210 Nicotine dependence, cigarettes, uncomplicated | CPT/HCPCS: 80048; 85025 ==

== ENCOUNTER 2019-12-30 11:39 | Observation (INO) | payer MEDICARE, MEDICAID, SELFPAY ==
[2019-12-29 10:49] VITALS: BMI 35.9
[2019-12-30] VITALS (67 sets, daily range): BP systolic 110–168; BP diastolic 58–88; PULSE 63–78; RESP 10–25; TEMP 36.6; O2SAT 88–100
--- NOTE | 2019-12-30 09:00 | XACV_ITS ---
Ht: 160 cm Wt: 92 kg BSA: 2.07 m2 Any Known Allergies: Other Gender: Female : 1955 Exam Type: Invasive Peripheral Vascular Procedure(s): Procedure Description: Peripheral Cath Diagnostic Procedure Procedure Description: Abdominal aortic angiography Procedure Description: Lower extremities' angiography Procedure Description: Peripheral vascular Intervention Procedure Description: PV Balloon Procedure Description: PV Stent Exam Priority: Routine Abdominal Interventional Findings Initially by using posterior tibial approach we try to cross the left common ostial iliac lesion which remain unsuccessful. Right common femoral artery approach was then adopted after somewhat struggle we were able to cross left common ostial highly calcified lesion with the help of Glidewire. Long 6 Danish sheath was used. Multiple balloon angioplasty followed by stent placement was performed in the ostial to proximal left common iliac segment. Excellent angiographic result with good flow was achieved. Please see inventory for balloon and stent size and caliber. Conclusions Peripheral Procedure Description: Life style limiting claudication, Christal grade V :Jules stage IV. Procedure #1 Abdominal aorta: Luminal irregularities#2 Right and left renal artery has luminal regular#3 Right common iliac artery has luminal irregularity#4 Left common iliac artery has 100% ostial chronic occlusion #5 Left and right internal iliac artery has luminal irregularity#7 Right and left external iliac artery has luminal irregularity#8 Left and right common femoral artery has luminal irregularity#9 Left and right profunda femoral artery has luminal irregularity#10 Right SFA luminal irregularity#11 Left SFA has luminal irregularity #12 Right and left popliteal artery has luminal irregularity.Left and right tibioperoneal trunk has luminal irregularitiesLeft anterior tibial artery has luminal irregularityLeft peroneal artery has luminal irregularitiesLeft posterior tibial has mid moderate stenosis Right tibioperoneal trunk has luminal irregularitiesRight posterior tibial artery appeared to be chronically occluded right anterior tibial artery has luminal irregularity cannot be visualized beyond the distal segment due to possible lack of contrast, peroneal artery can be only visualized in the proximal segment. Recommendations 1-Return to inpatient for close monitoring and routine cath care 2-Risk factor modification for secondary prevention 3-Statin and aspirin 81 mg life--long, if tolerated 4-Continue Plavix 75mg p.o. daily . 5-Continue optimal medical management 6-Follow up with Dr. Draper in four weeks and your primary care in 10 days. Hemodynamic Data Phase:Rest AO : 125.0 mmHg / 66.0 mmHg ( 87.0 mmHg ) @ 7:30:00 AM 126.0 mmHg / 67.0 mmHg ( 89.0 mmHg ) @ 7:33:00 AM Access Site Site: Right Popliteal Sheath Size: 6 Fr Hemost... Method: TR Band Hemost... Success: Successful Site: Right Femoral artery Sheath Size: 6 Fr Hemost... Method: Suture Hemost... Success: Successful Procedure Details Findings Procedure Consent Obtained. Pre-Procedure Time Out. Identified patient by full name and date of as verbalized by the patient/guarantor. Does the consent match the physician's order: Yes. Accurate & Complete Informed Consent: Yes. Inpatient/Outpatient History & Physical on Chart: No. If H&P is completed, is and addenduem needed: No; If yes, is the addendum complete: N/A. Visualize and Verify Site with Patient/Guarantor: N/A. Relevant Radiology Images available: Yes. Pre-op teaching completed and patient verbalized understanding. The risks, benefits, and alternatives of sedation and/or procedure were discussed by physician. The patient agrees to continue. Procedure started. Correct patient, site and procedure confirmed by cath team. Current diagnosis: PAD. PERRLA. 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 Lungs clear x 5 lobes. IV Site on Arrival: 20 gauge in the left anticubital. Pre Procedural Pulses: bilateral dorsalis pedis was Doppled. Pre Procedural Pulses: right dorsalis pedis was 3+. Pre Procedural Pulses: left posterior tibial was Doppled. Pre Procedural Pulses: right posterior tibial was 3+. Pre Procedural Pulses: bilateral radial was 3+. Oxygen started at 2liters/min via nasal canula. bilateral groins was prepped with chloroprep then draped in the usual sterile fashion. Physician notified. Baseline sample Acquired. HR: 66 BPM. Equipment: Peripheral. Cardiac Cath Pack. ACIST Manifold Kit Model BT 2000. Heparinized Saline (2 units/mL), 1000 mL bag. Physician arrived. Ultrasound called. Reji from ultrasound arrived. Physician scrubbed in. Immediate Pre-Procedure Time Out. Correct Patient: Yes; Correct Procedure: Yes; Correct Site: Yes; Correct Patient Position: Yes; Correct Supplies: Yes; Dried Flammable Prep: Yes; Blood Products Available: No;. Lidocaine 1% infiltrated to the left PT. Arterial access obtained with micropuncture set. Glidewire inserted. A 5 lao Angled Pig catheter in over wire. Catheter out. Seeker inserted over the glidewire. Glidewire out. Hand injection performed through the seeker. Side port of sheath attached to Normal Saline flush at KVO to maintain patency. Spoke with sister for update. Wire inserted. Site aborted. Physician will gain access in the groin. Lidocaine 1% infiltrated to the right groin. Hemnat Mariano RN, scrubbed in to replace Jeimy Villagomez as instructor dramatic arts. A 6 lao Angled Pig catheter in over glidewire. Abdominal aortogram performed in NAQVI @ 10 mL/sec for a total of 30 mL. Glidewire inserted. A JJ 5F RIM 65 cm Diagnostic Catheter was advanced over the wire and used for Lower extremity arteriography. Wire seated at the left SFA. Inflation number : 1 A AB ARMADA 35 OTW [id number] was prepped and advanced across the Ostial Common Iliac, Left , then inflated to 10 TYRESE for 1:03 seconds. Balloon out. Navicross support catheter inserted. Glidewire out of the Navicross. Inflation number : 2 A AB ARMADA 35 OTW [id number] was prepped and advanced across the Ostial Common Iliac, Left , then inflated to 10 TYRESE for 0:32 seconds. Sister contacted for update. Inflation number: 3 The AB ARMADA 35 OTW [id number] was reinflated across the Ostial Common Iliac, Left, to 12 TYRESE for 1:06 seconds. Inflation Number : 4 A AB OMNILINK STENT [id number] -Lot Number# [id number] was prepped and advanced across the Ostial Common Iliac, Left. The stent was deployed at 11 TYRESE for 1:05 seconds. Stent balloon out over wire. Rim inserted over the glidewire. Navicross out. Rim catheter out. Angled pigtail in. Left leg runoff performed at 10mL for a total of 30mL. Pigtail out. Hand injection performed at the sheath in the ankle. 6FR sheath exchanged. Right leg runoff performed at 10mL for a total of 30mL. A TR Band was successful obtaining hemostatsis at the Right Tibial insertion site. A Suture was successful obtaining hemostatsis at the Right Femoral artery insertion site. Post Procedure: Pulses reassessed and unchanged. PERRLA. 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 No VTE prophylaxis required. Medication's Wasted: Lidocaine 1% = 8 mL. Medication's Wasted: Nitro = 50 mg. Medication's Wasted: Heparin = 1000 units. Total IV fluids: 128 mL. Post-op diagnosis: Claudication. Complications: None. Estimated blood loss: 5mL-10mL. Sister contacted by Dr. Draper for post procedure update. Procedure completed. Vital chart was stopped. Patient transferred by bed to ICU. Procedure Medications Start: 11:22 AM Stop: 11:22 AM Medication: Versed Amount: 1 mg Route: I.V. Start: 11:22 AM Stop: 11:22 AM Medication: Fentanyl Amount: 50 mcg Route: I.V. Start: 11:38 AM Stop: 11:38 AM Medication: Fentanyl Amount: 25 mcg Route: I.V. Start: 11:44 AM Stop: 11:44 AM Medication: Versed Amount: 1 mg Route: I.V. Start: 12:06 PM Stop: 12:06 PM Medication: Versed 1 mg and Fentanyl 25 mcg Amount: 1 Route: I.V. Start: 12:28 PM Stop: 12:28 PM Medication: Versed Amount: 1 mg Route: I.V. Start: 12:28 PM Stop: 12:28 PM Medication: Fentanyl Amount: 50 mcg Route: I.V. Start: 12:34 PM Stop: 12:34 PM Medication: Heparin Amount: 5000 units Route: I.V. Start: 12:48 PM Stop: 12:48 PM Medication: Heparin Amount: 3000 units Route: I.V. Start: 12:57 PM Stop: 12:57 PM Medication: Nitrogylcerin Amount: 200 mcg Route: I.A. I, the attending physician, have reviewed and verified all procedure medications. Yes, all medications given per verbal order History/Risk Factors Hypertension: No Dyslipidemia: Yes Diabetic Therapy: Oral Peripheral Arterial Disease (PAD): Yes Myocardial Infarction (ND): No Obesity: Yes Renal Disease: No Tobacco Use: Current/Recent(w/in 1 year) Prior Interventions PCI: Yes CABG: No Valve Surgery: No Date of PCI: 11/16/2019 Report Signatures Finalized by:Michelle Draper MD on 01/11/2020 5:37:26 PM
[2019-12-30] MEDS: diphenhydrAMINE 50 mg Capsule PO (09:01)
--- NOTE | 2019-12-30 11:11 | W.PM.OPSUD ---
Surgery/Procedure H&P Update DATE OF PROCEDURE: December 30, 2019 DATE H&P PERFORMED: 12/23/19 H&P UPDATE INFORMATION: I have reviewed H&P completed within last 30 days, I have examined patient prior to procedure and No changes to prior documentation PREOP DIAGNOSIS: Lifestyle limiting claudication, near complete occlusion of left common iliac at ostium PLANNED PROCEDURE: Operation Date: 12/30/19 10:00 Proposed Procedures p Peripheral Diagnostic(Not Applicable) - Michelle Draper MD PATIENT REASSESSED PRIOR TO SEDATION, WITH NO CHANGE NOTED: Yes PHYSICAL EXAM: alert, oriented x 3, clear to auscultation bilaterally and regular rate & rhythm AIRWAY EVAL/ANESTHESIA PLAN: ASA II, Risks, benefits & alternatives of sedation and/or procedure discussed and Patient agrees to continue as planned
--- NOTE | 2019-12-30 11:29 | USCV_ITS ---
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
--- NOTE | 2019-12-30 14:03 | PC.NURSE ---
Patient arrived to unit from laboratory supervisor at 1315. Patient has TR band in place on left posterior tibial artery with 20 mL's of air in place. No hematoma present. Patient also has a sheath in place in right groin hooked to pressure bag, no hematoma noted, cath sutured in place. IV in left AC. Peripheral angiogram with stent to left common illiac. V/S are all within normal limits.
[2019-12-30] MEDS: pregabalin 100 mg Capsule 200 MG PO ×2 (14:37→21:05)
[2019-12-30] MEDS: albuterol 8 gm MDI 1 PUFF INHALATION ×2 (16:05→19:43)
--- NOTE | 2019-12-30 16:24 | PC.NURSE ---
TR Band off at 1615. Dressing dry and intact.
[2019-12-30] MEDS: atorvastatin 40 mg Tablet 20 MG PO (17:39)
--- NOTE | 2019-12-30 17:57 | PC.NURSE ---
Dr. Draper at bedside assessing patient and discussing POC at this time.
[2019-12-30] MEDS: fentaNYL 50 mcg/mL INJ 2mL IVP (18:26)
--- NOTE | 2019-12-30 19:06 | PC.NURSE ---
sheath removed from Right groin manual pressure held for 20 min until homeostasis achieved patient pre-medicated with fentanyl per orders patient tolerated well no hematoma noted
--- NOTE | 2019-12-30 19:28 | PC.NURSE ---
ROunding: Patient resting in bed watching TV. Patient L tibeal site and Right groin are clean dry and intact. Patient denies any pain at this time. No hematoma noted. WIll continue to monitor.
[2019-12-30] MEDS: morphine 4 mg/mL SDV 1 mL IVP (20:07)
[2019-12-30] MEDS: quetiapine 25 mg Tablet PO (21:05)
[2019-12-30] MEDS: ALPRAZolam 0.25 mg Tablet PO (23:25)
[2019-12-31 00:13] VITALS: BP 119/69; PULSE 67; RESP 17; TEMP 36.5; O2SAT 90
--- NOTE | 2019-12-31 01:06 | PC.NURSE ---
Patient ambulated post cath. Dressing to right groin is clean dry and intact. NO hematoma noted. Patient dressing to L tiba clean dry and intact no hematoma.
[2019-12-31 04:09] VITALS: BP 105/44; PULSE 67; RESP 16; TEMP 36.6; O2SAT 100
[2019-12-31 07:56] VITALS: BP 150/66; PULSE 78; RESP 13; TEMP 36.5; O2SAT 100
[2019-12-31] MEDS: aspirin 81 mg EC Tablet PO (08:00)
[2019-12-31] MEDS: pantoprazole DR 40 mg Tablet PO (08:00)
[2019-12-31] MEDS: levothyroxine 125 mcg Tablet PO (08:01)
[2019-12-31] MEDS: clopidogrel 75 mg Tablet PO (08:01)
[2019-12-31] MEDS: nicotine 14 mg Patch 1 PATCH TRANSDERMA (08:01)
[2019-12-31] MEDS: pregabalin 100 mg Capsule 200 MG PO (08:01)
[2019-12-31] MEDS: albuterol 8 gm MDI 1 PUFF INHALATION (08:15)
[2019-12-31 08:16] VITALS: PULSE 80; RESP 18; O2SAT 97
[2019-12-31 09:38] VITALS: BP 150/66; PULSE 80; RESP 18; TEMP 36.5; O2SAT 97
--- NOTE | 2019-12-31 10:11 | PC.CHAP ---
Pastoral Care Encounter/Spiritual Assessment Type of Contact [] Declined agricultural equipment mechanic visit [] Patient/Family/Request visit [] Outpatient visit [] Follow-up visit [] Physician referral [] Code/Alert [x] Routine visit [] Staff referral [] Actively dying [] Patient sleeping [] Family support [] [] Out of room [] Palliative care [] [] Receiving care in room [] Pre-surgical visit [] Trauma [] Long length of stay [] ICU visit [x] Other: doctor busy with patient Relational/Emotional Strength [] Patient feels connected with others/family/visitors/staff [] Distress [] Loneliness/isolation [] Abandonment Spirituality of Patient [] Person of Myra [] Attends Hinduism of their Myra [] Believes in Prayer [] Reads Bible or Latter-Day materials [] There are Spiritual issues to be addressed Pulley Mortiser Operator Interventions [x] Prayer [] Active listening [] Non-anxious presence [] Spiritual/emotional support [] Crisis/trauma care [] Spiritual counseling [] Bereavement support [] Provided bereavement packet [] Provided Bible/devotional materials [] Provided toy/stuffed animal, coloring book to patient or family member [] Provided Communion [] Anointing/[place] [] Salvation [x] Completed spiritual assessment [] Other: Impact on Illness or Injury [] Angry [] Fearful [] Anxious [] Often cries [] Exhaustion [] Unable to work [] Unable to attend gnosticism [] Unable to walk/stand [] Unable to read [] Unable to drive [] Unable to eat/drink [] Unable to sleep [] Unable to be with family [] Patient intubated [] Other: Summary Time spent with patient
--- NOTE | 2019-12-31 11:17 | PC.NURSE ---
Discharge instructions given per the physician's orders. Patient verbalized understanding of post angiogram home care instructions and did not have any further questions. Patient has contacted personal ride about discharge and has dressed self. IV has been removed. No further needs identified at this time.
--- NOTE | 2019-12-31 11:25 | PC.NURSE ---
Stent card with patient.
--- NOTE | 2019-12-31 12:58 | PC.RESP ---
SMOKING CESSATION AND PULMONARY REHAB INFORMATION SENT TO PATIENT.
--- NOTE | 2019-12-31 18:24 | PM.SDS ---
Short Stay Summary Providers Date of Admit/Discharge: 12/31/19 Attending Provider: Michelle Draper MD Primary Care Provider: Everardo Mejia MD Chief Complaint: periphearl diagnostic HPI History of Present Illness Keena Anderson is a 64 year old female with medical history significant for severe peripheral vascular disease, coronary artery disease status post stent to circumflex few weeks ago for lifestyle limiting claudication underwent peripheral angiogram through left posterior tibial and right common femoral artery approach. Subtotally occluded highly calcified ostial left common iliac lesion was treated with plain balloon angioplasty followed by stent placement. Postprocedure both anterior posterior tibial pulse were palpable. Post procedure course remained uncomplicated. This morning she is walking around without any difficulty he has some swelling of the left leg and foot. Before discharge both anterior posterior tibial pulse are palpable. She has 1+ edema. Patient has been advised in case of worsening of edema she can use compression stocking or call us. Advised to continue current regimen. She does not have any significant disease on the right leg. She will be following up in cardiology clinic in 1 week. She will be following up with me in 3 to 4 months. Home Meds/Allergies Home Medications and Allergies Home Medications Medication Instructions Recorded Confirmed Type fluticasone propionate 50 1 spray INTRANASAL DAILY PRN 10/31/19 12/30/19 History mcg/actuation nasal spray,suspension atorvastatin 20 mg PO QPM 12/15/19 12/30/19 History Allergies Allergy/AdvReac Type Severity Reaction Status Date / Time clarithromycin [From Biaxin] Allergy Thrush Verified 12/30/19 10:09 codeine Allergy ADR-Nausea Verified 12/30/19 10:09 PFSH Acute PFSH: Medical History Angina of effort Chronic back pain Chronic rhinitis COPD (chronic obstructive pulmonary disease) Coronary artery disease Depressive disorder, not elsewhere classified Deviated septum Diabetes Facet arthropathy, lumbar GERD (gastroesophageal reflux disease) H/O: CVA (cerebrovascular accident) Hiatal hernia History of incarceration Hypertension 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 region [facility] (current) use of opiate analgesic Lumbar radiculopathy Methamphetamine abuse Nasal turbinate hypertrophy Pain management contract signed Peptic ulcer disease Psychosis PVD (peripheral vascular disease) Nikita's edema of vocal folds Spondylosis of lumbar spine Tobacco abuse Surgical History H/O cataract History of appendectomy S/P tubal ligation Family History Father CAD (coronary artery disease) Diabetes Mother Diabetes Brother Diabetes Grandfather CAD (coronary artery disease) Other Cancer Social History Smoking and tobacco status: current every day smoker Alcohol intake: never Household members: none Marital status: Current occupational status: disabled History of recent travel: No Vitals/I&O/Wt Last Vital Signs Temp 97.7 F 12/31/19 09:38 Pulse 80 12/31/19 09:38 Resp 18 12/31/19 09:38 BP 150/66 12/31/19 09:38 Pulse Ox 97 12/31/19 09:38 12/31/19 12/31/19 12/31/19 06:59 14:59 22:59 Intake Total 900 / 1500 240 / 240 Balance 900 / 1500 240 / 240 Physical Exam Narrative: EXAM NARRATIVE: GENERAL: Patient is alert, awake and oriented x3. NECK: No jugular vein distension. HEENT: No cyanosis. No icterus. No pallor. HEART: Regular S1 and S2. No murmur, rub or gallop. LUNGS: Clear to auscultate bilaterally. ABDOMEN: Soft, nontender and nondistended. Positive bowel sounds. No guarding, rebound or tenderness. CENTRAL NERVOUS SYSTEM: Grossly nonfocal. EXTREMITIES: Lower extremities with 1+ edema bilaterally. Pulses palpable in the lower extremities, both dorsalis pedis and posterior tibial. Left foot 1+ edema SSS Data Data Completed and Pending: Completed Studies During Hospitalization Category Date Time Status US guide vascular access [CV guide vascular access Ultrasound 12/30/19 11:29 Completed [id number]] Stat Pending at discharge Category Date Time Status CMA OR LPN request for service Routin e Exams 12/30/19 09:00 Taken Diagnoses at Discharge Discharge Diagnosis (1) Coronary artery disease: Status: Acute Qualifiers: Coronary Disease-Associated Artery/Lesion type: [place] artery [place] vs. transplanted heart: [place] heart Associated angina: without angina Qualified Code(s): I25.10 - Atherosclerotic heart disease of [place] coronary artery without angina pectoris (2) PVD (peripheral vascular disease): Status: Acute Discharge Plan Discharge Patient Disposition: Home Condition: Stable Prescriptions: Continued quetiapine [Seroquel] 25 mg tablet 25 mg PO QDAY 30 Days Qty: 90 RF: 3 albuterol sulfate [ProAir HFA] 90 mcg/actuation HFA aerosol inhaler 1 inh INHALATION Q4H 90 Days Qty: 24 RF: 3 glipizide 5 mg tablet 5 mg PO BIDAC 90 Days Qty: 180 RF: 3 fluticasone propionate 50 mcg/actuation spray,suspension 1 spray INTRANASAL DAILY PRN (Reason: Allergy Symptoms) RF: 0 nicotine [Nicoderm CQ] 14 mg/24 hr patch 24 hour 1 patch TRANSDERMA DAILY Qty: 28 RF: 1 (DME) Accu-Chek Dayana Plus test strp Strip See Rx Instructions .ROUTE .MEDSUPPLY Qty: 100 RF: 3 (DME) lancets [Accu-Chek Softclix Lancets] Misc See Rx Instructions .ROUTE .MEDSUPPLY Qty: 50 RF: 11 metformin 1,000 mg tablet 500 mg PO BIDWM 90 Days Qty: 90 RF: 3 pregabalin [Lyrica] 200 mg capsule 200 mg PO TID Qty: 90 RF: 5 levothyroxine 125 mcg capsule 125 mcg PO DAILY Qty: 90 RF: 3 clopidogrel [Plavix] 75 mg tablet 75 mg PO DAILY Qty: 90 RF: 3 atorvastatin 20 mg Tablet 20 mg PO QPM RF: 0 pantoprazole [Protonix] 40 mg tablet,delayed release (DR/EC) 40 mg PO DAILY Qty: 90 RF: 2 aspirin [Aspirin Low Dose] 81 mg tablet,delayed release (DR/EC) 81 mg PO DAILY Qty: 90 RF: 4 Discharge Orders: Discharge Order (Routine); Ordered 12/31/19 Ordered By: Michelle Draper Referrals: Michelle Draper MD [Physician] - (Please, keep your appointment with Dr. Draper on Sunday, March 03 at 2:00p.m. If you have any questions or need to reschedule. Please call ) Pat Thomas FNP [Nurse Practitioner] - (You have an follow-up appointment with Pat Thomas on January 06 at 2:00p.m. If youhave any questions or need to reschedule. Please call ) Discharge Diet: Cardiac Discharge Activity: Increase activity as tolerated Patient Instructions: Coronary Artery Disease (DC), Peripheral Vascular Stent Placement (DC), Hypertension (DC), Peripheral Vascular Angioplasty (DC), Post Angiogram Home Care Instructions Activity Restrictions/Additional Instructions: Follow-up with Pat Thomas in 7 days, follow-up with Dr. Blunt in 3 months or as scheduled. Use compression stocking if he noticed swelling of the leg however if it get worse call Dr. Draper's office. Discharge Date/Time: 12/31/19 11:42 Attestations Medical Necessity Statement*: Patient can be discharged home Time Spent in Patient Care*: greater than 30 min Specific Discharge Activities: Specific discharge activities: educating patient Quality Metrics Clinical Quality Measures: During this hospital stay, did patient experience: None Coding Level of Care Code Acute Veneer Lathe Operator for Ron Womack Diagnoses Coronary artery disease I25.10 Coronary Disease-Associated Artery/Lesion type: [place] artery [place] vs. transplanted heart: [place] heart Associated angina: without angina PVD (peripheral vascular disease) I73.9
== END 2019-12-31 11:42 | disposition home or self-care (01) ==
LOC: CSU 11:40
PROVIDERS: Admitting Provider Internal Medicine Cardiovascular Disease; PCP Family Medicine; Visit Provider Internal Medicine Cardiovascular Disease
DX: I70.212 Atherosclerosis of native arteries of extremities with intermittent claudication, left leg (principal); I25.10 Atherosclerotic heart disease of native coronary artery without angina pectoris; Z95.5 Presence of coronary angioplasty implant and graft; J44.9 Chronic obstructive pulmonary disease, unspecified; F32.9 Major depressive disorder, single episode, unspecified; E11.9 Type 2 diabetes mellitus without complications; K21.9 Gastro-esophageal reflux disease without esophagitis; Z86.73 Personal history of transient ischemic attack (TIA), and cerebral infarction without residual deficits; I25.2 Old myocardial infarction; I10 Essential (primary) hypertension; Z87.11 Personal history of peptic ulcer disease; Z82.49 Family history of ischemic heart disease and other diseases of the circulatory system; Z83.3 Family history of diabetes mellitus; F17.210 Nicotine dependence, cigarettes, uncomplicated
CPT/HCPCS: 12345; 36415; 37221; 75625; 75716; 76937; 85730; 94640; 96374; 96375; C1725; C1769; C1876; C1887; C1894; G0378; J1644; J2250; J2270; J3010; J3490; J3535; J7030; Q0163; Q9967

== ENCOUNTER → 2020-01-06 11:37 | Outpatient (BNVA) | payer MEDICARE, MEDICAID, SELFPAY | PROVIDERS: PCP Family Medicine; Visit Provider Nurse Practitioner Family | DX: I25.10 Atherosclerotic heart disease of native coronary artery without angina pectoris (principal); I73.9 Peripheral vascular disease, unspecified | CPT/HCPCS: 80048 ==

== ENCOUNTER 2020-01-08 16:25 | Emergency (ER) | payer MEDICARE, MEDICAID, SELFPAY ==
[2020-01-08 17:05] VITALS: BP 159/70; PULSE 81; RESP 14; TEMP 36.6; O2SAT 99
--- NOTE | 2020-01-08 17:26 | ED_ITS ---
Documented by User: Natacha Bee MD 01/22/20 06:22 HPI - Female Genitourinary General: Chief complaint: Urogenital-Female Stated complaint: kidney gal bladder probs/ after groin stint Time Seen by Provider: 01/08/20 17:14 History of Present Illness: HPI Narrative: This patient is a 64-year-old female presenting today with right flank and back pain. She said she had a cardiac cath around December 16 and had 2 or 3 stents put in. Subsequently around the of the she had a peripheral vascular study and stenting of vessels in her left leg. She said Dr. Blunt tried to go in through the left femoral but was unable to and had to go in through the right. She went to the heart floor in the hospital and that night started having severe right low back pain. She said gradually it spread to being pain across both sides of her back and now is mostly just on the right again. It is been constant. She went and followed up with Dr. Blunt's office to have blood work to make sure kidney function was normal. She has not had any urinary symptoms. She otherwise is feeling much better after the procedure. MD elicited complaint: back pain and flank pain Location of symptoms: low back Severity: moderate Quality of pain: dull and aching Consistency: constant Associated symptoms: Reports abdominal pain (Occasional right upper quadrant pain); Deny fevers/chills, headache(s) or nausea Review of Systems General: Reports: 10 or more systems reviewed and unremarkable except in HPI and below Const: Denies: fever(s), chills, fatigue or malaise Eyes: Denies: change in vision ENMT: Denies: odynophagia Card: Denies: chest pain or swelling of feet/ankles Resp: Denies: dyspnea, productive cough or non-productive cough GI: Reports: abdominal pain (Occasional right upper quadrant pain); Denies: nausea : Reports: flank pain; Denies: difficulty voiding Musc: Reports: back pain; Denies: neck pain Skin/Breast: Denies: rash Neuro: Denies: headache(s), numbness in extremities or weakness in extremities Frederic/Lymph: Denies: easy bruising or easy bleeding FORMERLY [facility], [facility] ED PFSH: Medical History (Updated 01/16/20 @ 17:10 by Luis Alberto Fulton MD) Cholelithiasis Chronic rhinitis COPD (chronic obstructive pulmonary disease) Coronary artery disease Depressive disorder, not elsewhere classified Deviated septum Diabetes GERD (gastroesophageal reflux disease) H/O: CVA (cerebrovascular accident) Hiatal hernia Hypertension 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 region Lumbar radiculopathy Nasal turbinate hypertrophy Peptic ulcer disease Psychosis PVD (peripheral vascular disease) Nikita's edema of vocal folds Spondylosis of lumbar spine Surgical History H/O cataract H/O colonoscopy 2018 History of appendectomy History of heart artery stent 12/2019 S/P tubal ligation Family History Father CAD (coronary artery disease) Diabetes Mother Diabetes Brother Diabetes Grandfather CAD (coronary artery disease) Other Cancer Social History Smoking and tobacco status: current every day smoker Quit status (tobacco): considering quitting Alcohol intake: never Household members: none Marital status: Current occupational status: disabled History of recent travel: No Physical Exam Const: COMMON NORMALS: no acute distress, patient oriented x3, no limitations and alert GENERAL APPEARANCE: cooperative and comfortable HENMT: HEAD & SCALP: normal to inspection FACE & SINUS: normal facial exam Eye: GENERAL EYE: appearance normal, both eyes and all related structures Neck/C-Spine: COMMON NORMALS: supple, no meningeal signs and no JVD Chest: COMMONS NORMALS: normal inspection of the chest Resp: COMMON NORMALS: normal respiratory effort, No use of accessory muscles and clear to auscultation bilaterally AUSCULTATION: clear to auscultation bilaterally Cardio: COMMON NORMALS: no JVD, regular rate, regular rhythm and No murmurs present (Cardio) RATE: regular rate RHYTHM: regular rhythm GI: COMMON NORMALS: Normal to inspection, nondistended, normoactive bowel sounds present, Soft to palpation and non-tender INSPECTION: Yes normal to inspection AUSCULTATION: Yes normoactive bowel sounds PALPATION: Yes Soft to palpation : BLADDER/KIDNEY EXAM: Yes CVA tenderness Back/Pelvis: COMMON NORMALS: thoracic and lumbar spine normal to inspection GENERAL BACK: Yes CVA tenderness CVA tenderness: right Extremity: COMMON NORMALS: normal to inspection Neuro: COMMON NORMALS: patient oriented x3, moves all extremities, no focal motor deficits and no sensory deficits noted SENSORIUM/ORIENTATION: Yes alert MENINGEAL SIGNS: Yes no meningeal signs Psych: COMMON NORMALS: mental status grossly normal, cooperative and normal affect Skin: COMMON NORMALS: no rashes or lesions noted and turgor normal GENERAL SKIN EXAM: no rashes or lesions noted and turgor normal Course Vital Signs: Vital signs: Vital Signs Temperature 97.9 F 01/08/20 17:05 Pulse Rate 72 01/08/20 20:14 Respiratory Rate 18 01/08/20 20:14 Blood Pressure 154/77 01/08/20 20:14 Pulse Oximetry 100 01/08/20 20:14 MDM - Female Lab Data: Labs: Lab Results 01/08/20 01/08/20 01/08/20 Range/Units 17:15 17:36 17:36 WBC 7.7 (4.0-10.0) 10^3/ uL RBC 4.16 (4.1-5.3) 10^6/u L Hgb 9.4 L (11.5-15.3) g/dL Hct 32.5 L (37.0-47.0) % MCV 78.1 L (81-99) fL MCH 22.6 L (28.0-34.0) pg MCHC 28.9 L (30.0-36.0) g/dL RDW 18.2 H (12.1-15.1) % Plt Count 395 (130-400) 10^3/c mm MPV 10.9 H (7.4-10.4) fL Neut % (Auto) 59.1 % Lymph % (Auto) 31.3 % [place] % (Auto) 6.2 % Eos % (Auto) 2.6 % Baso % (Auto) 0.4 % Neut # (Auto) 4.55 (1.8-7.7) 10^3/u L Lymph # (Auto) 2.4 (0.8-4.8) 10^3/u L [place] # (Auto) 0.5 (0.2-0.9) 10^3/u L Eos # (Auto) 0.2 (0.0-0.8) 10^3/u L Baso # (Auto) 0.0 (0.0-0.1) 10^3/u L Nucleated RBC % (a uto) 0 % Nucleated RBCs # 0.0 /100WBC PT 11.80 L (12.1-14.9) SECO NDS INR 0.85 (0.8-1.2) Sodium (136-145) mmol/L Potassium (3.5-5.1) mmol/L Chloride (98-107) mmol/L Carbon Dioxide (22-29) mmol/L Anion Gap (5-19) BUN (8-23) mg/dL Creatinine (0.5-0.9) mg/dL GFR Calculation (90-130) mL/min Glucose (65-115) mg/dL Calculated Osmolal ity (285-295) mOsm/k g Calcium (8.5-10.5) mg/dL Total Bilirubin (0.15-1.2) mg/dL AST (0-32) U/L ALT (0-33) U/L Alkaline Phosphata se (35-105) IU/L Total Protein (6.6-8.7) g/dL Albumin (3.5-5.2) g/dL Globulin (1.3-4.6) g/dL Urine Color Yellow (Yellow) Urine Appearance Clear (CLEAR) Urine pH 6 (5-7) Ur Specific Gravit y 1.010 (1.005-1.030) Urine Protein Neg (Negative) Urine Glucose (UA) Norm (Normal) Urine Ketones Negative (Negative) Urine Blood Neg (Negative) Urine Nitrate Negative (Negative) Urine Bilirubin Neg (NEGATIVE) Urine Urobilinogen Neg (Negative) mg/dL Ur Leukocyte Luci ase Negative (Negative) 01/08/20 Range/Units 17:36 WBC (4.0-10.0) 10^3/ uL RBC (4.1-5.3) 10^6/u L Hgb (11.5-15.3) g/dL Hct (37.0-47.0) % MCV (81-99) fL MCH (28.0-34.0) pg MCHC (30.0-36.0) g/dL RDW (12.1-15.1) % Plt Count (130-400) 10^3/c mm MPV (7.4-10.4) fL Neut % (Auto) % Lymph % (Auto) % [place] % (Auto) % Eos % (Auto) % Baso % (Auto) % Neut # (Auto) (1.8-7.7) 10^3/u L Lymph # (Auto) (0.8-4.8) 10^3/u L [place] # (Auto) (0.2-0.9) 10^3/u L Eos # (Auto) (0.0-0.8) 10^3/u L Baso # (Auto) (0.0-0.1) 10^3/u L Nucleated RBC % (a uto) % Nucleated RBCs # /100WBC PT (12.1-14.9) SECO NDS INR (0.8-1.2) Sodium 139 (136-145) mmol/L Potassium 3.7 (3.5-5.1) mmol/L Chloride 105 (98-107) mmol/L Carbon Dioxide 27 (22-29) mmol/L Anion Gap 10.7 (5-19) BUN 6 L (8-23) mg/dL Creatinine 0.6 (0.5-0.9) mg/dL GFR Calculation 100.6 (90-130) mL/min Glucose 130 H (65-115) mg/dL Calculated Osmolal ity 286 (285-295) mOsm/k g Calcium 8.9 (8.5-10.5) mg/dL Total Bilirubin 0.2 (0.15-1.2) mg/dL AST 23 (0-32) U/L ALT 21 (0-33) U/L Alkaline Phosphata se 128 H (35-105) IU/L Total Protein 7.4 (6.6-8.7) g/dL Albumin 3.8 (3.5-5.2) g/dL Globulin 3.6 (1.3-4.6) g/dL Urine Color (Yellow) Urine Appearance (CLEAR) Urine pH (5-7) Ur Specific Gravit y (1.005-1.030) Urine Protein (Negative) Urine Glucose (UA) (Normal) Urine Ketones (Negative) Urine Blood (Negative) Urine Nitrate (Negative) Urine Bilirubin (NEGATIVE) Urine Urobilinogen (Negative) mg/dL Ur Leukocyte Luci ase (Negative) Discharge Plan Discharge Patient Disposition: Home Clinical Impression: Abdominal pain Condition: Stable Prescriptions: No Action quetiapine [Seroquel] 25 mg tablet 25 mg PO QDAY 30 Days Qty: 90 RF: 3 albuterol sulfate [ProAir HFA] 90 mcg/actuation HFA aerosol inhaler 1 inh INHALATION Q4H 90 Days Qty: 24 RF: 3 glipizide 5 mg tablet 5 mg PO BIDAC 90 Days Qty: 180 RF: 3 fluticasone propionate 50 mcg/actuation spray,suspension 1 spray INTRANASAL DAILY PRN (Reason: Allergy Symptoms) RF: 0 nicotine [Nicoderm CQ] 14 mg/24 hr patch 24 hour 1 patch TRANSDERMA DAILY Qty: 28 RF: 1 pantoprazole [Protonix] 40 mg tablet,delayed release (DR/EC) 40 mg PO DAILY Qty: 90 RF: 2 (DME) Accu-Chek Dayana Plus test strp Strip See Rx Instructions .ROUTE .MEDSUPPLY Qty: 100 RF: 3 (DME) lancets [Accu-Chek Softclix Lancets] Misc See Rx Instructions .ROUTE .MEDSUPPLY Qty: 50 RF: 11 metformin 1,000 mg tablet 500 mg PO BIDWM 90 Days Qty: 90 RF: 3 pregabalin [Lyrica] 200 mg capsule 200 mg PO TID Qty: 90 RF: 5 levothyroxine 125 mcg capsule 125 mcg PO DAILY Qty: 90 RF: 3 clopidogrel [Plavix] 75 mg tablet 75 mg PO DAILY Qty: 90 RF: 3 atorvastatin 20 mg Tablet 20 mg PO QPM RF: 0 aspirin [Aspirin Low Dose] 81 mg tablet,delayed release (DR/EC) 81 mg PO DAILY Qty: 90 RF: 4 tizanidine 4 mg Tablet 4 mg PO BID PRN (Reason: muscle spasms) RF: 0 Discharge Orders: Discharge Order (Routine); Ordered 01/08/20 Ordered By: Julissa Saucedo Referrals: Everardo Mejia MD [Primary Care Provider] - 1-3 days Luis Alberto Fulton MD [Physician] - 1-3 days Patient Instructions: Abdominal Pain (ED) Activity Restrictions/Additional Instructions: Please return to the ER immediately for any of the signs or symptoms listed on your discharge instruction sheets, worsening/changing of your symptoms, you are not getting better as quickly as expected, or for ANY other cause or concerns. If your symptoms change or worsen at all please return to the ER for recheck. Be certain to call Dr. Fulton's office for an appointment to be set up for possible outpatient HIDA scan and further evaluation and care of your gallbladder. Discharge Date/Time: 01/08/20 20:21 Sign Out Sign Out Data: Patient Sign Out occurred on 01/08/20 at 18:07. Patient's care was discussed, and care was transferred from to Julissa Saucedo. Coding Level of Care Code ED Research Methodologist for Chg Fwd Exam Comprehensive Documented by User: Julissa Saucedo 01/08/20 21:59 HPI - Female Genitourinary General: Chief complaint: Urogenital-Female Stated complaint: kidney gal bladder probs/ after groin stint Time Seen by Provider: 01/08/20 17:14 PFSH ED PFSH: Medical History (Updated 01/16/20 @ 17:10 by Luis Alberto Fulton MD) Cholelithiasis Chronic rhinitis COPD (chronic obstructive pulmonary disease) Coronary artery disease Depressive disorder, not elsewhere classified Deviated septum Diabetes GERD (gastroesophageal reflux disease) H/O: CVA (cerebrovascular accident) Hiatal hernia Hypertension 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 region Lumbar radiculopathy Nasal turbinate hypertrophy Peptic ulcer disease Psychosis PVD (peripheral vascular disease) Nikita's edema of vocal folds Spondylosis of lumbar spine Surgical History H/O cataract H/O colonoscopy 2018 History of appendectomy History of heart artery stent 12/2019 S/P tubal ligation Family History Father CAD (coronary artery disease) Diabetes Mother Diabetes Brother Diabetes Grandfather CAD (coronary artery disease) Other Cancer Social History Smoking and tobacco status: current every day smoker Quit status (tobacco): considering quitting Alcohol intake: never Household members: none Marital status: Current occupational status: disabled History of recent travel: No Course Vital Signs: Vital signs: Vital Signs Temperature 97.9 F 01/08/20 17:05 Pulse Rate 72 01/08/20 20:14 Respiratory Rate 18 01/08/20 20:14 Blood Pressure 154/77 01/08/20 20:14 Pulse Oximetry 100 01/08/20 20:14 MDM - Female MDM Narrative: Medical decision making narrative: 1839 -Case turned over to me at change of shift from Dr. Bee. Please see her note for her history, physical exam and medical decision-making notes. CT scan reveals no evidence of renal pathology, retroperitoneal bleeding or complications from her recent procedures. Patient describes the pain to me is in her right back and right upper quadrant. Cholelithiasis is noted on the CAT scan so I will follow this with a ultrasound of her gallbladder. Discharge -patient is relieved to hear her gallbladder shows no sign of infection on ultrasound. She agrees that she should follow-up with Dr. Fulton for further evaluation of this. At this time I see no evidence of kidney stone, intra-abdominal pathology, bleeding or otherwise. Patient agrees to return should her symptoms change or worsen but at this time she is ready for discharge. Lab Data: Labs: Lab Results 01/08/20 01/08/20 01/08/20 Range/Units 17:15 17:36 17:36 WBC 7.7 (4.0-10.0) 10^3/ uL RBC 4.16 (4.1-5.3) 10^6/u L Hgb 9.4 L (11.5-15.3) g/dL Hct 32.5 L (37.0-47.0) % MCV 78.1 L (81-99) fL MCH 22.6 L (28.0-34.0) pg MCHC 28.9 L (30.0-36.0) g/dL RDW 18.2 H (12.1-15.1) % Plt Count 395 (130-400) 10^3/c mm MPV 10.9 H (7.4-10.4) fL Neut % (Auto) 59.1 % Lymph % (Auto) 31.3 % [place] % (Auto) 6.2 % Eos % (Auto) 2.6 % Baso % (Auto) 0.4 % Neut # (Auto) 4.55 (1.8-7.7) 10^3/u L Lymph # (Auto) 2.4 (0.8-4.8) 10^3/u L [place] # (Auto) 0.5 (0.2-0.9) 10^3/u L Eos # (Auto) 0.2 (0.0-0.8) 10^3/u L Baso # (Auto) 0.0 (0.0-0.1) 10^3/u L Nucleated RBC % (a uto) 0 % Nucleated RBCs # 0.0 /100WBC PT 11.80 L (12.1-14.9) SECO NDS INR 0.85 (0.8-1.2) Sodium (136-145) mmol/L Potassium (3.5-5.1) mmol/L Chloride (98-107) mmol/L Carbon Dioxide (22-29) mmol/L Anion Gap (5-19) BUN (8-23) mg/dL Creatinine (0.5-0.9) mg/dL GFR Calculation (90-130) mL/min Glucose (65-115) mg/dL Calculated Osmolal ity (285-295) mOsm/k g Calcium (8.5-10.5) mg/dL Total Bilirubin (0.15-1.2) mg/dL AST (0-32) U/L ALT (0-33) U/L Alkaline Phosphata se (35-105) IU/L Total Protein (6.6-8.7) g/dL Albumin (3.5-5.2) g/dL Globulin (1.3-4.6) g/dL Urine Color Yellow (Yellow) Urine Appearance Clear (CLEAR) Urine pH 6 (5-7) Ur Specific Gravit y 1.010 (1.005-1.030) Urine Protein Neg (Negative) Urine Glucose (UA) Norm (Normal) Urine Ketones Negative (Negative) Urine Blood Neg (Negative) Urine Nitrate Negative (Negative) Urine Bilirubin Neg (NEGATIVE) Urine Urobilinogen Neg (Negative) mg/dL Ur Leukocyte Luci ase Negative (Negative) 08/06/20 Range/Units 17:36 WBC (4.0-10.0) 10^3/ uL RBC (4.1-5.3) 10^6/u L Hgb (11.5-15.3) g/dL Hct (37.0-47.0) % MCV (81-99) fL MCH (28.0-34.0) pg MCHC (30.0-36.0) g/dL RDW (12.1-15.1) % Plt Count (130-400) 10^3/c mm MPV (7.4-10.4) fL Neut % (Auto) % Lymph % (Auto) % [place] % (Auto) % Eos % (Auto) % Baso % (Auto) % Neut # (Auto) (1.8-7.7) 10^3/u L Lymph # (Auto) (0.8-4.8) 10^3/u L [place] # (Auto) (0.2-0.9) 10^3/u L Eos # (Auto) (0.0-0.8) 10^3/u L Baso # (Auto) (0.0-0.1) 10^3/u L Nucleated RBC % (a uto) % Nucleated RBCs # /100WBC PT (12.1-14.9) SECO NDS INR (0.8-1.2) Sodium 139 (136-145) mmol/L Potassium 3.7 (3.5-5.1) mmol/L Chloride 105 (98-107) mmol/L Carbon Dioxide 27 (22-29) mmol/L Anion Gap 10.7 (5-19) BUN 6 L (8-23) mg/dL Creatinine 0.6 (0.5-0.9) mg/dL GFR Calculation 100.6 (90-130) mL/min Glucose 130 H (65-115) mg/dL Calculated Osmolal ity 286 (285-295) mOsm/k g Calcium 8.9 (8.5-10.5) mg/dL Total Bilirubin 0.2 (0.15-1.2) mg/dL AST 23 (0-32) U/L ALT 21 (0-33) U/L Alkaline Phosphata se 128 H (35-105) IU/L Total Protein 7.4 (6.6-8.7) g/dL Albumin 3.8 (3.5-5.2) g/dL Globulin 3.6 (1.3-4.6) g/dL Urine Color (Yellow) Urine Appearance (CLEAR) Urine pH (5-7) Ur Specific Gravit y (1.005-1.030) Urine Protein (Negative) Urine Glucose (UA) (Normal) Urine Ketones (Negative) Urine Blood (Negative) Urine Nitrate (Negative) Urine Bilirubin (NEGATIVE) Urine Urobilinogen (Negative) mg/dL Ur Leukocyte Luci ase (Negative) Imaging Data: CT Abd/Pel: Radiologist's impression: [address] [address] [address] Scan Report Signed Patient: Keena Anderson Unit #: [id number] : 1955 Age/Sex: 64 / F ADM Date: 01/08/20 Loc: ER Room/Bed: Attending Dr: Ordering Provider/Ordering MD: Natacha Bee MD Date of Service: 01/08/20 Procedure(s): CT abdomen pelvis w con* [id number] Accession Number(s): [id number] Report Number: [id number] PROCEDURE INFORMATION: Exam: CT Abdomen And Pelvis With Contrast Exam date and time: 01/08/2020 5:39 PM Age: 64 years old Clinical indication: Abdominal pain; Prior surgery; Surgery type: Tubal, appy; Additional info: Flank pain, post femoral cath TECHNIQUE: Imaging protocol: Computed tomography of the abdomen and pelvis with intravenous contrast. Radiation optimization: All CT scans at this facility use at least one of these dose optimization techniques: automated exposure control; mA and/or kV adjustment per patient size (includes targeted exams where dose is matched to clinical indication); or iterative reconstruction. Contrast material: OMNI 300; Contrast volume: 95 ml; Contrast route: INTRAVENOUS (IV); COMPARISON: 1. CT abdomen pelvis wo con [id number] 08/03/2015 6:[address] angio abd aorta runof [id number] 11/20/2019 9:13:36 AM RADIATION DOSE METRICS: Total DLP (mGy-cm): 1547.95 FINDINGS: Tubes, catheters and devices: There is minimal haziness in the fat of the right groin area which is consistent with the given history of recent femoral catheterization. There is no evidence of hematoma in the groin area or any retroperitoneal hemorrhage. Mediastinal space: A large hiatal hernia is present. Liver: There is no focal abnormality within the liver. Gallbladder and bile ducts: A calcified gallstone is present. Pancreas: Normal. No ductal dilation. Spleen: The spleen is normal. Adrenals: The right adrenal gland is normal. 12 x 24 mm left adrenal adenoma not changed from 2016. No follow-up is necessary. Kidneys and ureters: The kidneys are normal. There is no evidence of renal or ureteral calcifications. There is no evidence of hydronephrosis. Stomach and bowel: There is no evidence of colitis/diverticulitis. Appendix: Not identified Intraperitoneal space: There is no evidence of free intraperitoneal fluid. Vasculature: The aorta demonstrates severe atherosclerotic calcification and ectasia. Minimal aneurysm of the infrarenal abdominal aorta measuring 1.4 x 2.0 cm not significantly changed. Lymph nodes: Unremarkable. No enlarged lymph nodes. Bladder: Unremarkable as visualized. Reproductive: Unremarkable as visualized. Bones/joints: The lumbar spine demonstrates moderate degenerative changes at multiple levels. Soft tissues: Unremarkable. CT/CT abdomen pelvis w con* [id number] IMPRESSION: 1. No acute finding. 2. Atherosclerotic aortic disease. 3. Large hiatus hernia. 4. Cholelithiasis. Radiation Dose CTDIVOL = (mGy): DLP = 1547.95 (mGy-cm) Dictated By: Delfino Boyd Signed By: Delfino Boyd Signed Date/Time: 01/08/201825 DD/ 24 US: My impression: Ultrasound gallbladder, tech interpretation -gallstone present otherwise no findings that appear acute. No pericholecystic fluid, no gallbladder wall thickening, no common bile duct dilatation. Discharge Plan Discharge Patient Disposition: Home Clinical Impression: Abdominal pain Condition: Stable Prescriptions: No Action quetiapine [Seroquel] 25 mg tablet 25 mg PO QDAY 30 Days Qty: 90 RF: 3 albuterol sulfate [ProAir HFA] 90 mcg/actuation HFA aerosol inhaler 1 inh INHALATION Q4H 90 Days Qty: 24 RF: 3 glipizide 5 mg tablet 5 mg PO BIDAC 90 Days Qty: 180 RF: 3 fluticasone propionate 50 mcg/actuation spray,suspension 1 spray INTRANASAL DAILY PRN (Reason: Allergy Symptoms) RF: 0 nicotine [Nicoderm CQ] 14 mg/24 hr patch 24 hour 1 patch TRANSDERMA DAILY Qty: 28 RF: 1 pantoprazole [Protonix] 40 mg tablet,delayed release (DR/EC) 40 mg PO DAILY Qty: 90 RF: 2 (DME) Accu-Chek Dayana Plus test strp Strip See Rx Instructions .ROUTE .MEDSUPPLY Qty: 100 RF: 3 (DME) lancets [Accu-Chek Softclix Lancets] Misc See Rx Instructions .ROUTE .MEDSUPPLY Qty: 50 RF: 11 metformin 1,000 mg tablet 500 mg PO BIDWM 90 Days Qty: 90 RF: 3 pregabalin [Lyrica] 200 mg capsule 200 mg PO TID Qty: 90 RF: 5 levothyroxine 125 mcg capsule 125 mcg PO DAILY Qty: 90 RF: 3 clopidogrel [Plavix] 75 mg tablet 75 mg PO DAILY Qty: 90 RF: 3 atorvastatin 20 mg Tablet 20 mg PO QPM RF: 0 aspirin [Aspirin Low Dose] 81 mg tablet,delayed release (DR/EC) 81 mg PO DAILY Qty: 90 RF: 4 tizanidine 4 mg Tablet 4 mg PO BID PRN (Reason: muscle spasms) RF: 0 Discharge Orders: Discharge Order (Routine); Ordered 01/08/20 Ordered By: Julissa Saucedo Referrals: Everardo Mejia MD [Primary Care Provider] - 1-3 days Luis Alberto Fulton MD [Physician] - 1-3 days Patient Instructions: Abdominal Pain (ED) Activity Restrictions/Additional Instructions: Please return to the ER immediately for any of the signs or symptoms listed on your discharge instruction sheets, worsening/changing of your symptoms, you are not getting better as quickly as expected, or for ANY other cause or concerns. If your symptoms change or worsen at all please return to the ER for recheck. Be certain to call Dr. Fulton's office for an appointment to be set up for possible outpatient HIDA scan and further evaluation and care of your gallbladder. Discharge Date/Time: 01/08/20 20:21 Sign Out Sign Out Data: Patient Sign Out occurred on 01/08/20 at 18:07. Patient's care was discussed, and care was transferred from to Julissa Saucedo. Coding Level of Care Code ED Research Methodologist for Chg Fwd Exam Comprehensive
[2020-01-08 17:46] LABS: Basophils % 0.4 %; Eosinophils # 0.2 10^3/uL (0.0-0.8); Eosinophils % 2.6 %; Hematocrit 32.5 % (37.0-47.0); Hemoglobin 9.4 g/dL (11.5-15.3); Lymphocytes # 2.4 10^3/uL (0.8-4.8); Lymphocytes % 31.3 %; Mean Corpuscular HGB Conc 28.9 g/dL (30.0-36.0); Mean Corpuscular Hemoglobin 22.6 pg (28.0-34.0); Mean Corpuscular Volume 78.1 fL (81-99); Mean Platelet Volume 10.9 fL (7.4-10.4); Monocytes # 0.5 10^3/uL (0.2-0.9); Monocytes % 6.2 %; Neutrophils # 4.55 10^3/uL (1.8-7.7); Neutrophils % 59.1 %; Nucleated Red Blood Cells % 0 %; Platelet Count 395 10^3/cmm (130-400); Red Blood Count 4.16 10^6/uL (4.1-5.3); Red Cell Distribution Width 18.2 % (12.1-15.1); White Blood Count 7.7 10^3/uL (4.0-10.0)
[2020-01-08 18:00] LABS: Add Urine Microscopic? NO
[2020-01-08 18:01] LABS: INR 0.85 (0.8-1.2)
[2020-01-08] MEDS: iohexol 300 mg/mL 100 mL Btl 95 ML IV (18:01)
[2020-01-08 18:08] LABS: Bilirubin Urine Neg (NEGATIVE); Blood Urine Neg (Negative); Glucose Urine UA Norm (Normal); Ketones Urine Negative (Negative); Leukocyte Esterase Urine Negative (Negative); Nitrate Urine Negative (Negative); Protein Urine Neg (Negative); Urine Appearance Clear (CLEAR); Urine Color Yellow (Yellow); Urobilinogen Urine Neg (Negative); pH Urine 6 (5-7)
[2020-01-08 18:08] LABS: Alanine Aminotransferase 21 U/L (0-33); Albumin Level 3.8 g/dL (3.5-5.2); Alkaline Phosphatase 128 IU/L (35-105); Anion Gap 10.7 (5-19); Aspartate Amino Transferase 23 U/L (0-32); Blood Urea Nitrogen 6 mg/dL (8-23); Calcium 8.9 mg/dL (8.5-10.5); Carbon Dioxide 27 mmol/L (22-29); Chloride 105 mmol/L (98-107); Globulin 3.6 g/dL (1.3-4.6); Glomerular Filtration Rate 100.6 mL/min (90-130); Glucose 130 mg/dL (65-115); Osmolality Calculated 286 mOsm/kg (285-295); Potassium 3.7 mmol/L (3.5-5.1); Sodium 139 mmol/L (136-145); Total Bilirubin 0.2 mg/dL (0.15-1.2); Total Protein 7.4 g/dL (6.6-8.7)
--- NOTE | 2020-01-08 18:40 | US_ITS ---
WS: [id number] RIGHT UPPER QUADRANT ULTRASOUND HISTORY: Pain COMPARISON: 07/05/2012 and 01/08/2020 Liver: 14.2 cm in length. Normal size liver with moderate hepatic steatosis and heterogeneity. No mas s identified. No bile duct dilatation. Gallbladder: Mildly contracted gallbladder with stones. No pericholecystic fluid. CBD: 0.4 cm Pancreas: Normal size and echogenicity. Right kidney: 10.4 cm in length. Normal echogenicity with no mass or hydronephrosis. Aorta and IVC: Unremarkable. No ascites. US/US gall bladder [id number] IMPRESSION: 1. Cholelithiasis without evidence for acute cholecystitis. 2. Moderate hepatic steatosis.
[2020-01-08] MEDS: acetaminophen 500 mg Tablet 1000 MG PO (19:24)
[2020-01-08 19:26] VITALS: BP 168/84; PULSE 76; RESP 18; O2SAT 100
[2020-01-08 20:14] VITALS: BP 154/77; PULSE 72; RESP 18; O2SAT 100
== END 2020-01-08 20:21 | disposition home or self-care (01) ==
PROVIDERS: Emergency Medicine; Emergency Provider Emergency Medicine; PCP Family Medicine
DX: R10.11 Right upper quadrant pain (principal); Z79.82 Long term (current) use of aspirin; Z79.02 Long term (current) use of antithrombotics/antiplatelets; Z79.84 Long term (current) use of oral hypoglycemic drugs; J44.9 Chronic obstructive pulmonary disease, unspecified; I25.10 Atherosclerotic heart disease of native coronary artery without angina pectoris; E11.9 Type 2 diabetes mellitus without complications; Z86.73 Personal history of transient ischemic attack (TIA), and cerebral infarction without residual deficits; I10 Essential (primary) hypertension; F17.210 Nicotine dependence, cigarettes, uncomplicated
CPT/HCPCS: 12345; 36415; 74177; 76705; 80053; 81003; 85025; 85610; 99283; Q9967

== ENCOUNTER → 2020-01-20 10:16 | Outpatient (BNVA) | payer MEDICARE, MEDICAID, SELFPAY | PROVIDERS: PCP Family Medicine; Visit Provider Nurse Practitioner | DX: M54.9 Dorsalgia, unspecified (principal); S39.012A Strain of muscle, fascia and tendon of lower back, initial encounter; X58.XXXA Exposure to other specified factors, initial encounter | CPT/HCPCS: 81000; 87086 ==

== ENCOUNTER → 2020-01-30 08:52 | Outpatient (BNVA) | payer MEDICARE, MEDICAID, SELFPAY | PROVIDERS: PCP Family Medicine; Visit Provider Internal Medicine | DX: K21.9 Gastro-esophageal reflux disease without esophagitis (principal); Z20.818 Contact with and (suspected) exposure to other bacterial communicable diseases | CPT/HCPCS: 87635 ==

== ENCOUNTER → 2020-02-03 09:13 | Day surgery (SDC) | payer MEDICARE, MEDICAID, SELFPAY ==
[2020-01-30 13:45] VITALS: BMI 37.0
[2020-02-03 09:31] VITALS: BP 121/92; PULSE 70; RESP 18; TEMP 36.1; O2SAT 97
--- NOTE | 2020-02-03 09:41 | P.ANESASSM_ITS ---
Pre-Anesthetic Assessment Pre-Anesthetic Assessment: Height/Weight: Height 1.6 m Weight 94.801 kg Preop Diagnosis: epigastric pain Proposed Procedure: Operation Date: 02/03/20 10:30 Proposed Procedures p EGD 35749 K21.9(Not Applicable) - Luis Alberto Fulton MD Social: Social History: Tobacco Exam: Pre-Anes Outpt Exam: alert, oriented x 3, clear to auscultation bilaterally and regular rate & rhythm Pulmonary: Pulmonary: COPD Comments: deviated nasal septum w/ turbinate hypertrophy CV/HEM: CV/HEM: Anemia, CAD (RUT stents in LCX and RCA placed on 12/16 - now on plavix), HTN and PVD Comments: echo 10/31 - ef 60-65% GI: GI: GERD, Hiatus hernia and PUD Metabolic: Metabolic: DM, Hyperlipidemia and Morbid obesity Neuropsych: Comments: hx meth use opioid contracgt Anesthetic Plan: ASA status: 4 Anesthesia: MAC Other: Patient stated she quit taking her plavix on sunday. Contacted Dr. Draper. Will give plavix 600 mg po load and have patient restart plavix tomorrow. Will reschedule procedure for later date. Patient educated to go to ER is she starts experiencing any chest pains. 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 Lumbar radiculopathy Nasal turbinate hypertrophy Peptic ulcer disease Psychosis PVD (peripheral vascular disease) Burton's edema of vocal folds Spondylosis of lumbar spine Surgical History H/O cataract H/O colonoscopy 2019 History of appendectomy History of heart artery stent 12/2019 S/P tubal ligation Family History Father CAD (coronary artery disease) Diabetes Mother Diabetes Brother Diabetes Grandfather CAD (coronary artery disease) Other Cancer Denies family history of Anesthesia complication Bleeding disorder Social History Smoking and tobacco status: current every day smoker Quit status (tobacco): considering quitting Alcohol intake: never Household members: none Marital status: Current occupational status: disabled History of recent travel: No Data Anesthesia Cardiac Studies: 2 No Data to Display
[2020-02-03] MEDS: clopidogrel 300 mg Tablet 600 MG PO (10:40)
--- NOTE | 2020-02-05 10:22 | ANE.PACU2 ---
Inpatient post-anesthesia follow up: Airway intact: Yes Vital signs: Temperature 97 F Pulse Rate 70 Respiratory Rate 18 Blood Pressure 121/92 Pulse Oximetry 97 Oxygen Delivery Me thod Room Air Oxygen Flow Rate Fraction of Inspir ed Oxygen Hydration adequate: Yes Nausea and vomiting: No Pain level: 1 Mental status: Baseline
== END ==
PROVIDERS: PCP Family Medicine; Visit Provider Surgery
PROC: 0DJ08ZZ Inspection of Upper Intestinal Tract, Via Natural or Artificial Opening Endoscopic (ICD-10-PCS; CPT 43235; principal; 2020-02-03 10:30)
DX: Z01.818 Encounter for other preprocedural examination (principal)
CPT/HCPCS: J7030

== ENCOUNTER 2020-02-05 07:24 | Day surgery (SDC) | payer MEDICARE, MEDICAID, SELFPAY ==
[2020-02-04 12:21] VITALS: BMI 37.2
[2020-02-05] MEDS: sodium chloride 0.9% 1,000 ML 30 ML IV (07:56)
[2020-02-05 07:59] LABS: Glucose Point of Care 124 mg/dL (70-110)
--- NOTE | 2020-02-05 09:51 | W.PM.OPSUD ---
Surgery/Procedure H&P Update DATE OF PROCEDURE: February 05, 2020 DATE H&P PERFORMED: 01/15/20 H&P UPDATE INFORMATION: I have reviewed H&P completed within last 30 days, I have examined patient prior to procedure and No changes to prior documentation PREOP DIAGNOSIS: epigastric pain PLANNED PROCEDURE: Operation Date: 02/05/20 08:30 Proposed Procedures p EGD 20807 K21.9(Not Applicable) - Luis Alberto Fulton MD
[2020-02-05 10:16] VITALS: BP 109/72; PULSE 66; RESP 14; TEMP 36.4; O2SAT 99
[2020-02-05 10:37] VITALS: BP 139/68; PULSE 60; RESP 18; O2SAT 98
== END 2020-02-05 10:50 | disposition home or self-care (01) ==
PROVIDERS: PCP Family Medicine; Visit Provider Surgery
PROC: 0DJ08ZZ Inspection of Upper Intestinal Tract, Via Natural or Artificial Opening Endoscopic (ICD-10-PCS; CPT 43235; principal; 2020-02-05 08:30)
DX: K31.9 Disease of stomach and duodenum, unspecified (principal); K21.9 Gastro-esophageal reflux disease without esophagitis; R10.9 Unspecified abdominal pain; R11.2 Nausea with vomiting, unspecified
CPT/HCPCS: 12345; 36416; 43239; 82962; 88305; J2704

== ENCOUNTER 2020-02-18 07:21 | Outpatient (CLI) | payer MEDICARE, MEDICAID, SELFPAY ==
--- NOTE | 2020-02-18 07:25 | NM_ITS ---
WS: [id number] NUCLEAR MEDICINE GASTRIC EMPTYING EXAMINATION HISTORY: epigastric pain COMPARISON: None available. TECHNIQUE: The patient ingested a meal containing 1.1 mCi of Tc 99m sulfur colloid mixed with eggs. The patient was placed in supine position and imaging over the abdomen was performed for a total of 9 0 minutes. Computer acquisition with the region of interest placed over the stomach to evaluate gastr ic emptying half-time. Small amount of radionuclide in the distal esophagus due to poor emptying during this examination. No rmal half-time to emptying. Greater than 50% emptying of the stomach at approximately 64 minutes. NC/[place] [id number] IMPRESSION: 1. Normal gastric emptying time. 2. Radionuclide deposit in the region of the distal esophagus. Corresponds to the large hiatal hernia seen on prior imaging.
== END 2020-02-18 07:22 | disposition home or self-care (01) ==
LOC: NM 07:23
PROVIDERS: PCP Family Medicine; Visit Provider Surgery
DX: R10.13 Epigastric pain (principal)
CPT/HCPCS: 78264; A9541

== ENCOUNTER 2020-03-16 08:15 | Outpatient (CLI) | payer MEDICARE, MEDICAID, SELFPAY ==
--- NOTE | 2020-03-16 08:30 | FL_ITS ---
WS: [id number] DOUBLE CONTRAST UPPER GI EXAMINATION HISTORY: K44.9 Diaphragmatic hernia without obstruction or gangrene COMPARISON: None available. FLUOROSCOPY TIME: 2.6 minutes. Sales And Service Technician film reveals normal distribution of gas throughout the GI tract. No suspicious masses or calcif ications. Barium traverses through the esophagus. There is a very large hiatal hernia. The esophagus extends po sterior to the very large hiatal hernia. Esophagus enters the hiatal hernia above the diaphragm. Ther e is no obstruction. Mild delay in emptying of the esophagus. Minimal reflux to the level of the tariq. FL/FL upper GI w air* [id number] IMPRESSION: Large hiatal hernia. Mild delayed emptying of the esophagus and mild reflux.
== END 2020-03-16 08:16 | disposition home or self-care (01) ==
LOC: RAD 08:24
PROVIDERS: PCP Family Medicine; Visit Provider Surgery
DX: K44.9 Diaphragmatic hernia without obstruction or gangrene (principal)
CPT/HCPCS: 74246

== ENCOUNTER 2020-06-05 11:34 | Emergency (ER) | payer MEDICARE, MEDICAID, SELFPAY ==
[2020-06-05 11:41] VITALS: PULSE 64; RESP 18; O2SAT 97; BMI 37.2
--- NOTE | 2020-06-05 13:12 | XRR_ITS ---
PROCEDURE INFORMATION: Exam: XR Lumbosacral Spine, 2 or 3 Views Exam date and time: 06/05/2020 1:13 PM Age: 65 years old Clinical indication: Low back pain; Additional info: Back pain - sciatica TECHNIQUE: Imaging protocol: XR of the lumbosacral spine, 2 or 3 views. COMPARISON: CT abdomen pelvis w con* [id number] 01/08/2020 5:54 PM FINDINGS: Bones/joints: No acute fracture. Normal alignment. Degenerative change is identified in the spine. There are osteophytes throughout the lumbar spine. Soft tissues: Unremarkable. XR/XR lumbar spine 2-3V* [id number] IMPRESSION: No acute findings.
[2020-06-05] MEDS: HYDROcodone-acetaminophen 5-325 mg Tablet 1 TAB PO (13:28)
--- NOTE | 2020-06-05 13:49 | W.ED.BACK ---
HPI - Back Pain/Injury General: Chief Complaint: Back Pain/Injury Stated Complaint: pain all over Time Seen by Provider: 06/05/20 13:02 Source: patient Mode of arrival: ambulatory Limitations: no limitations History of Present Illness: HPI Narrative: Pleasant 65-year-old female patient presents to the emergency department with low back pain, she reports was vacuuming, cleaning her house in a bending position approximately 6 days ago, reports onset of low back pain that started yesterday, worse today. She reports history of chronic back pain, degenerative disc disease with 2 bulging disks in her lower back, reports back work-up had to be placed on hold due to cardiac intervention needs. She reports taking Plavix daily, states took Aleve this morning for pain. MD elicited complaint: back pain and back injury Pertinent past history: prior back pain Onset (ago): day(s) (2-3) Timing: intermittent and progressively worsening Severity: moderate Similar Symptoms Previously: Yes Quality: burning, sharp and dull Location: lumbar spine Radiation: none Exacerbating factors: movement and walking Relieving factors: immobilization Context: while lifting, turning/twisting and bending Associated symptoms: Reports difficulty walking (has to use crutches, walker dos not help with pain); Deny abdominal pain, chills, dysuria, fatigue, fever(s), nausea or vomiting Treatments prior to arrival: cold therapy, heat therapy and NSAIDS Work related injury: No Review of Systems General: Reports: 10 or more systems reviewed and unremarkable except in HPI and below Const: Denies: fever(s), chills, body aches, fatigue, malaise or diaphoresis Eyes: Denies: blurry vision, eye discomfort or eye redness ENMT: Denies: throat pain, hoarseness, dental pain, disequilibrium, nasal discharge or nasal congestion Card: Denies: chest pain, palpitations or irregular heart rhythm Resp: Denies: dyspnea, productive cough, non-productive cough, wheezing or chest congestion GI: Denies: abdominal pain, nausea, vomiting, dysphagia, diarrhea, constipation or hematochezia : Denies: difficulty voiding or dysuria Musc: Reports: back pain; Denies: neck pain, joint pain, muscle cramps or muscle weakness Skin/Breast: Denies: rash, pruritus, skin tenderness or changes in skin color Neuro: Reports: difficulty walking (has to use crutches, walker dos not help with pain) Psych: Denies: anxiety or depression Frederic/Lymph: Denies: easy bruising PFSH ED PFSH: Medical History (Updated 06/05/20 @ 14:58 by PAULIE Ndiaye) Cholelithiasis Chronic rhinitis COPD (chronic obstructive pulmonary disease) Coronary artery disease Depressive disorder, not elsewhere classified Deviated septum Diabetes GERD (gastroesophageal reflux disease) H/O: CVA (cerebrovascular accident) Hiatal hernia Hypertension 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 region Lumbar radiculopathy Nasal turbinate hypertrophy Peptic ulcer disease Psychosis PVD (peripheral vascular disease) Nikita's edema of vocal folds Spondylosis of lumbar spine Surgical History H/O cataract H/O colonoscopy 2018 History of appendectomy History of heart artery stent 12/2019 S/P tubal ligation Family History Father CAD (coronary artery disease) Diabetes Mother Diabetes Brother Diabetes Grandfather CAD (coronary artery disease) Other Cancer Denies family history of Anesthesia complication Bleeding disorder Social History Smoking and tobacco status: current every day smoker Quit status (tobacco): considering quitting Alcohol intake: never Household members: none Marital status: Current occupational status: disabled History of recent travel: No Physical Exam Const: COMMON NORMALS: no acute distress, average body habitus, patient oriented x3, healthy appearing, alert and well nourished GENERAL APPEARANCE: cooperative, comfortable, well kempt, well developed and well hydrated; not anxious and not ill appearing NUTRITIONAL APPEARANCE: obese ORIENTATION/CONSCIOUSNESS: Yes awake, Yes oriented to person, Yes oriented to place and Yes oriented to time HENMT: COMMON NORMALS: normocephalic, Normal external nose present and moist oral mucous membranes HEAD & SCALP: normocephalic NOSE: Normal external nose present Eye: COMMON NORMALS: Equal, round and reactive pupils present and EOMs intact bilaterally GENERAL EYE: appearance normal, both eyes and all related structures PUPIL: Yes Equal, round and reactive pupils present Neck/C-Spine: COMMON NORMALS: full ROM, no lymphadenopathy and supple GENERAL: Yes normal visual inspection and Yes trachea midline CERVICAL SPINE: Yes cervical ROM normal Lymph: LYMPHATIC: no lymphadenopathy noted Chest: COMMONS NORMALS: normal inspection of the chest Resp: COMMON NORMALS: normal respiratory effort, No retractions, No use of accessory muscles and clear to auscultation bilaterally EFFORT & INSPECTION: Yes able to speak in complete sentences AUSCULTATION: clear to auscultation bilaterally, no wheezes and lung sounds not diminished Cardio: COMMON NORMALS: regular rate, regular rhythm, S1 normal heart sound present, S2 normal heart sound present and Peripheral pulses 2+ throughout RATE: regular rate RHYTHM: regular rhythm HEART SOUNDS: S1 normal heart sound present and S2 normal heart sound present PERIPHERAL PULSES: Peripheral pulses 2+ throughout GI: COMMON NORMALS: Normal to inspection, nondistended, normoactive bowel sounds present, Soft to palpation and non-tender INSPECTION: Yes normal to inspection PALPATION: Yes Soft to palpation : COMMON NORMALS: Yes no CVA tenderness BLADDER/KIDNEY EXAM: Yes no CVA tenderness and Yes CVA tenderness Back/Pelvis: COMMON NORMALS: no CVA tenderness and thoracic and lumbar spine normal to inspection GENERAL BACK: Yes CVA tenderness THORACIC SPINE/UPPER BACK: Yes normal to inspection, Yes thoracic ROM normal, No thoracic spinal tenderness, No paraspinal muscle tenderness and No paraspinal muscle spasm LUMBAR SPINE/LOWER BACK: Yes normal to inspection, Yes ROM limited (secondary to pain), Yes lumbar spinal tenderness Lumbar spinal tenderness location: L2, L3, L4 and L5, Yes paraspinal muscle tenderness Lumbar paraspinal muscle tenderness: right and Yes paraspinal muscle spasm Lumbar paraspinal muscle spasm: right PELVIS: Yes buttocks normal SACROILIAC JOINTS: Yes SI joint(s) abnormal SI joint details: tender to palpation (rt) Extremity: COMMON NORMALS: normal to inspection and capillary refill normal Neuro: LEFTY COMA SCALE: document GCS findings [place] coma scale eye opening: Spontaneous [place] coma scale verbal response: Orientated [place] coma scale motor response: Obey commands [place] coma scale total score: 15 COMMON NORMALS: patient oriented x3 and no focal motor deficits SENSORIUM/ORIENTATION: Yes alert, Yes oriented to person, Yes oriented to place and Yes oriented to time SPEECH: speech normal GAIT: Yes Other gait observations present (limping) MOTOR EXAM: 5/5 motor strength present throughout Psych: COMMON NORMALS: mental status grossly normal, Normal thought process present and cooperative APPEARANCE: Yes well kempt ACTIVITY/MOTOR BEHAVIOR: Yes appropriate eye contact THOUGHT PROCESS: Normal thought process present Skin: COMMON NORMALS: no rashes or lesions noted and turgor normal GENERAL SKIN EXAM: no rashes or lesions noted and turgor normal Course Vital Signs: Vital signs: Vital Signs Pulse Rate 64 06/05/20 11:41 Respiratory Rate 18 06/05/20 15:08 Pulse Oximetry 97 06/05/20 11:41 MDM - Back Pain/Injury Imaging Data^: Other Imaging: Radiologist's impression: [id number] [address] XRay Report Signed Patient: Keena Anderson #: [id number] : 5Acsc#:[id number] Age/Sex: 65 / FADM Date: 06/05/20 Loc: ERRoom/Bed: Attending Dr: Ordering Provider/Ordering MD: Shannan Ramos Date of Service: 06/05/20 Procedure(s): XR lumbar spine 2-3V* [id number] Accession Number(s): [id number] Report Number: [id number] PROCEDURE INFORMATION: Exam: XR Lumbosacral Spine, 2 or 3 Views Exam date and time: 06/05/2020 1:13 PM Age: 65 years old Clinical indication: Low back pain; Additional info: Back pain - sciatica TECHNIQUE: Imaging protocol: XR of the lumbosacral spine, 2 or 3 views. COMPARISON: CT abdomen pelvis w con* [id number] 01/08/2020 5:54 PM FINDINGS: Bones/joints: No acute fracture. Normal alignment. Degenerative change is identified in the spine. There are osteophytes throughout the lumbar spine. Soft tissues: Unremarkable. XR/XR lumbar spine 2-3V* [id number] IMPRESSION: No acute findings. Dictated By:Flaquito Merlos MD Signed By:Flaquito Merlos MDSigned Date/Time:06/05/201436 DD/ 143 Discharge Plan Discharge Patient Disposition: Home Clinical Impression: Back strain Qualifiers: Encounter type: initial encounter Qualified Code(s): S39.012A - Strain of muscle, fascia and tendon of lower back, initial encounter Sciatica Qualifiers: Laterality: right Qualified Code(s): M54.31 - Sciatica, right side Condition: Stable Prescriptions: New Lidoderm 5 % adhesive patch,medicated 1 patch topical BID PRN (Reason: back pain) Qty: 30 RF: 0 No Action glipizide 5 mg tablet 5 mg PO BIDAC 90 Days Qty: 180 RF: 3 fluticasone propionate 50 mcg/actuation spray,suspension 1 spray INTRANASAL DAILY PRN (Reason: Allergy Symptoms) RF: 0 pregabalin [Lyrica] 200 mg capsule 200 mg PO TID RF: 0 Chantix Starting Month Box 0.5 mg (11)- 1 mg (42) tablets,dose pack See Rx Instructions PO PER PKG DIR Qty: 53 RF: 0 (DME) lancets [Accu-Chek Softclix Lancets] Misc See Rx Instructions .ROUTE .MEDSUPPLY Qty: 50 RF: 11 metformin 1,000 mg tablet 500 mg PO BIDWM 90 Days Qty: 90 RF: 3 levothyroxine 125 mcg capsule 125 mcg PO DAILY Qty: 90 RF: 3 clopidogrel [Plavix] 75 mg tablet 75 mg PO DAILY Qty: 90 RF: 3 quetiapine [Seroquel] 25 mg tablet 25 mg PO QDAY 30 Days Qty: 90 RF: 3 tizanidine 4 mg tablet 4 mg PO BID PRN (Reason: muscle spasms) 90 Days Qty: 120 RF: 3 sucralfate 1 gram tablet 1 gm PO Q6H Qty: 120 RF: 3 albuterol sulfate [ProAir HFA] 90 mcg/actuation HFA aerosol inhaler 1 inh INHALATION Q4H 90 Days Qty: 24 RF: 3 (DME) Accu-Chek Dayana Plus test strp Strip See Rx Instructions .ROUTE .MEDSUPPLY Qty: 100 RF: 3 aspirin [Aspirin Low Dose] 81 mg tablet,delayed release (DR/EC) 81 mg PO DAILY Qty: 90 RF: 4 atorvastatin 20 mg tablet 20 mg PO QPM RF: 0 pantoprazole [Protonix] 40 mg tablet,delayed release (DR/EC) 40 mg PO DAILY Qty: 90 RF: 2 Discharge Orders: Discharge ED (Routine); Ordered 06/05/20 Ordered By: Shannan Ramos Referrals: Everardo Mejia MD [Primary Care Provider] - Discharge Diet: Usual diet Discharge Activity: Limit activity as instructed Patient Instructions: Sciatica (ED), Low Back Strain (ED), Acute Low Back Pain (ED) Activity Restrictions/Additional Instructions: Follow-up with your primary care provider next week for further evaluation May take Tylenol, 2 extra strength tablets every 6-8 hours as needed for pain Warm moist heat alternate with cool compresses to the affected area as needed for pain Prescription of Lidoderm patches have been provided, if insurance will not pay for patches, may apply [id number] Salonpas roll on -use as directed on bottle Avoid twisting bending at the waist, do not lift greater than 10 pounds Continue to use walker/crutches as needed Coding Level of Care Code ED Rate Setter for Chg Fwd Exam Comprehensive
[2020-06-05 15:08] VITALS: RESP 18
== END 2020-06-05 15:08 | disposition home or self-care (01) ==
PROVIDERS: Emergency Provider Nurse Practitioner Family; PCP Family Medicine
DX: M54.31 Sciatica, right side (principal); S39.012A Strain of muscle, fascia and tendon of lower back, initial encounter; Z79.82 Long term (current) use of aspirin; Z79.02 Long term (current) use of antithrombotics/antiplatelets; Z79.84 Long term (current) use of oral hypoglycemic drugs; J44.9 Chronic obstructive pulmonary disease, unspecified; I25.10 Atherosclerotic heart disease of native coronary artery without angina pectoris; E11.9 Type 2 diabetes mellitus without complications; I10 Essential (primary) hypertension; F17.210 Nicotine dependence, cigarettes, uncomplicated; X50.1XXA Overexertion from prolonged static or awkward postures, initial encounter
CPT/HCPCS: 12345; 72100; 99281; 99283

== ENCOUNTER → 2020-07-15 13:02 | Outpatient (BNVA) | payer MEDICARE, MEDICAID, SELFPAY | PROVIDERS: PCP Family Medicine; Visit Provider Family Medicine | DX: E03.9 Hypothyroidism, unspecified (principal); E11.51 Type 2 diabetes mellitus with diabetic peripheral angiopathy without gangrene; I10 Essential (primary) hypertension; R32 Unspecified urinary incontinence; F17.200 Nicotine dependence, unspecified, uncomplicated | CPT/HCPCS: 80053; 80061; 83036; 84443; 85025 ==

== ENCOUNTER → 2020-09-23 10:35 | Outpatient (BNVA) | payer MEDICARE, MEDICAID, SELFPAY | PROVIDERS: PCP Family Medicine; Visit Provider Surgery | DX: K80.20 Calculus of gallbladder without cholecystitis without obstruction (principal) | CPT/HCPCS: 87635 ==

== ENCOUNTER 2020-11-02 06:00 | Outpatient (RCR) | payer MEDICARE, MEDICAID, SELFPAY | END 2020-12-01 23:59 | disposition home or self-care (01) | LOC: SPT 06:00 | PROVIDERS: PCP Family Medicine; Referring Provider Family Medicine; Visit Provider Family Medicine | DX: M79.7 Fibromyalgia (principal) | CPT/HCPCS: 97113; 97161 ==

== ENCOUNTER 2020-12-02 13:30 | Outpatient (RCR) | payer MEDICARE, MEDICAID, SELFPAY | END 2021-01-01 23:59 | disposition home or self-care (01) | LOC: SPT 13:30 | PROVIDERS: PCP Family Medicine; Referring Provider Family Medicine; Visit Provider Family Medicine | DX: M79.7 Fibromyalgia (principal) | CPT/HCPCS: 97110; 97113 ==

== ENCOUNTER → 2020-12-20 13:19 | Outpatient (BNVA) | payer MEDICARE, MEDICAID, SELFPAY | PROVIDERS: PCP Family Medicine; Visit Provider Surgery | DX: Z11.52 Encounter for screening for COVID-19 (principal) | CPT/HCPCS: 87635 ==

== ENCOUNTER 2020-12-27 09:16 | Day surgery (SDC) | payer MEDICARE, MEDICAID, SELFPAY ==
[2020-12-20 08:01] VITALS: BMI 33.5
--- NOTE | 2020-12-20 08:22 | ANES.PREANE2 ---
Pre-Anesthetic Assessment Pre-Anesthetic Assessment: Height/Weight: Height 1.6 m Weight 85.729 kg Preop Diagnosis: Symptomatic cholelithiasis Proposed Procedure: Operation Date: 12/27/20 11:55 Proposed Procedures p Laparoscopic Cholecystectomy 86747 k80.20(Not Applicable) - Leo Ybarra MD Familial anesthetic complications: None Social: Social History: No alcohol and No tobacco Comment: quit smoking Exam: Pre-Anes Outpt Exam: alert, oriented x 3, clear to auscultation bilaterally and regular rate & rhythm Airway: Cervical ROM: WNL MP: 1 Dentition: False Pulmonary: Pulmonary: COPD and Cough (occassional) Comments: Quit smoking in april CV/HEM: CV/HEM: Arrythmia (states it was irregular before her stents, skipped beats ), CAD, HTN and PVD Comments: 3 stents > 1 year ago on plavix Hepatic: Comments: fatty liver GI: GI: GERD Metabolic: Metabolic: DM, Hyperlipidemia and Thyroid Musc/skel: Musc/skel: Fibromyalgia Neuropsych: Neuropsych: Neuropathy (L side -takes lyrica) and TIA (short term memory loss - most recent one was 6 years ago) Anesthetic Plan: ASA status: 3 Anesthesia: General Risk of > 500 ml blood loss (7ml/kg in children): No PFSH Anesthesia PFSH: Medical History Cholelithiasis Chronic rhinitis COPD (chronic obstructive pulmonary disease) Coronary artery disease Depressive disorder, not elsewhere classified Deviated septum Diabetes Fibromyalgia GERD (gastroesophageal reflux disease) H/O: CVA (cerebrovascular accident) Hiatal hernia Hypertension 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 region Lumbar radiculopathy Nasal turbinate hypertrophy Peptic ulcer disease Psychosis PVD (peripheral vascular disease) Nikita's edema of vocal folds Spondylosis of lumbar spine Surgical History H/O cataract H/O colonoscopy 2018 History of appendectomy History of heart artery stent 12/2019 S/P tubal ligation Family History Father CAD (coronary artery disease) Diabetes Mother Diabetes Brother Diabetes Grandfather CAD (coronary artery disease) Other Cancer Denies family history of Anesthesia complication Bleeding disorder Social History Smoking and tobacco status: former smoker Quit status (tobacco): considering quitting Alcohol intake: never Household members: none Marital status: Current occupational status: disabled History of recent travel: No Data Anesthesia CBC & Chem 7: 12/20/20 08:16 12/20/20 08:16 Cardiac Studies: No Data to Display
[2020-12-20 08:27] LABS: Hemoglobin 11.8 g/dL (11.5-15.3); Mean Corpuscular HGB Conc 30.3 g/dL (30.0-36.0); Mean Corpuscular Hemoglobin 23.3 pg (28.0-34.0); Mean Corpuscular Volume 77.1 fL (81-99); Mean Platelet Volume 11.2 fL (7.4-10.4); Platelet Count 298 10^3/cmm (130-400); Red Blood Count 5.06 10^6/uL (4.1-5.3); White Blood Count 7.5 10^3/uL (4.0-10.0)
[2020-12-20 08:45] LABS: Anion Gap 16.3 (5-19); Blood Urea Nitrogen 15 mg/dL (8-23); Calcium 9.4 mg/dL (8.5-10.5); Carbon Dioxide 29 mmol/L (22-29); Chloride 102 mmol/L (98-107); Glomerular Filtration Rate 100.3 mL/min (90-130); Glucose 119 mg/dL (65-115); Osmolality Calculated 296 mOsm/kg (285-295); Potassium 5.3 mmol/L (3.5-5.1); Sodium 142 mmol/L (136-145)
[2020-12-20 09:48] LABS: Absolute Eosinophils 0.3 10^3/cmm (0.0-0.7); Absolute Neutrophil 3.5 10^3/cmm (1.4-6.5); Absolute Segmented Neutrophil 3.2 10/cmm (1.6-7.1); Band Neutrophils Absolute 0.3 10^3/cmm (0.0-1.2); Eosinophils 4 %; Lymphocytes 40 %; Monocytes Absolute 0.7 10^3/cmm (0.1-0.6); Platelet Estimate Normal (Normal); Segmented Neutrophils 43 %; Total Cells Counted 100 (0-100)
[2020-12-27] VITALS (13 sets, daily range): BP systolic 145–194; BP diastolic 75–101; PULSE 59–68; RESP 13–18; TEMP 36.2–36.6; O2SAT 93–100
[2020-12-27] MEDS: heparin 5,000 unit/mL INJ 1 mL 3000 UNIT SUBCUT (09:50)
[2020-12-27] MEDS: sodium chloride 0.9% 1,000 ML 30 ML IV (09:51)
[2020-12-27 09:57] LABS: Glucose Point of Care 133 mg/dL (70-110)
--- NOTE | 2020-12-27 10:39 | P.ANESUD_ITS ---
Pre-Anesthetic Update Pre-Anesthetic Assessment: Date of Surgery/Procedure: 12/27/20 Preop Destiny gnosis: Symptomatic cholelithiasis Proposed Procedure: Operation Date: 12/27/20 11:10 Proposed Procedures p Laparoscopic Cholecystectomy 02147 k80.20(Not Applicable) - Leo Ybarra MD Any changes to Pre-Anesthetic Assessment?: No Last Intake: Intake Last Liquid Date 12/27/20 Last Liquid Time 07:30 Last Solid Date 12/26/20 Last Solid Time 20:30 Labs Last 48hrs: Laboratory Results - last 48 hr 12/27/20 09:40 POC Glucose 133 H Vitals: Temperature 97.2 F L 12/27/20 09:28 Temperature Source Temporal Artery S can 12/27/20 09:28 Pulse Rate 68 12/27/20 09:28 Respiratory Rate 18 12/27/20 09:28 Blood Pressure 145/84 12/27/20 09:28 Blood Pressure Doreen n 104 12/27/20 09:28 Pulse Oximetry 99 12/27/20 09:28 Oxygen Delivery Me thod 12/27/20 09:28 Exam: Pre-Anes Outpt Exam: alert, oriented x 3, clear to auscultation bilaterally and regular rate & rhythm Cardiac Studies: No Data to Display
--- NOTE | 2020-12-27 11:03 | P.HP_ITS ---
Same Day Surgery H&P Indication for Procedure/HPI DATE OF PROCEDURE: December 27, 2020 CHIEF COMPLAINT/INDICATIONFOR SURGICAL PROCEDURE: Abdominal pain PREOP DIAGNOSIS: Symptomatic cholelithiasis PLANNED PROCEDRUE: Operation Date: 12/27/20 11:10 Proposed Procedures p Laparoscopic Cholecystectomy 49200 k80.20(Not Applicable) - Leo Ybarra MD 12/27/2020 Patient comes today for elective laparoscopic cholecystectomy based on her symptomatology and the findings of cholelithiasis. Reports no complaints and she did lose about 20 pounds. ROS All systems have been reviewed negative except as per the above or per problem list Medications/Allergies* Home Medications Medication Instructions Recorded Confirmed Type atorvastatin 20 mg tablet 20 mg PO QPM 03/03/20 12/27/20 History tizanidine 4 mg PO DAILY 12/20/20 12/20/20 History Allergies/Adverse Reactions Allergy/AdvReac Type Severity Reaction Status Date / Time clarithromycin [From Biaxin] Allergy Thrush Verified 12/27/20 11:11 codeine Allergy ADR-Nausea Verified 12/27/20 11:11 Current Medications: Generic Name Dose Route Start Last Admin Trade Name Freq PRN Reason Stop Dose Admin Sodium Chloride 1,000 mls @ 30 mls/hr 12/27/20 09:30 12/27/20 09:51 Sodium Chloride 0.9% IV 12/28/20 09:29 30 mls/hr .Q24H [facility] Administration Pertinent History/Comorbid Conditions* Medical History (Updated 10/14/20 @ 12:05 by Everardo Mejia MD) Cholelithiasis Chronic rhinitis COPD (chronic obstructive pulmonary disease) Coronary artery disease Depressive disorder, not elsewhere classified Deviated septum Diabetes Fibromyalgia GERD (gastroesophageal reflux disease) H/O: CVA (cerebrovascular accident) Hiatal hernia Hypertension 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 region Lumbar radiculopathy Nasal turbinate hypertrophy Peptic ulcer disease Psychosis PVD (peripheral vascular disease) Nikita's edema of vocal folds Spondylosis of lumbar spine Surgical History (Updated 01/15/20 @ 14:11 by Luis Alberto Fulton MD) H/O cataract H/O colonoscopy 2018 History of appendectomy History of heart artery stent 12/2019 S/P tubal ligation Family History (Updated 01/15/20 @ 13:51 by Vani Lenon, URGENT CARE TECHNICIAN) Diabetes Father Mother Brother CAD (coronary artery disease) Father Grandfather Cancer Denies family history of Anesthesia complication Bleeding disorder Social History Smoking and tobacco status: former smoker Quit status (tobacco): considering quitting Alcohol intake: never Household members: none Marital status: Current occupational status: disabled History of recent travel: No Pertinent Exam Findings alert, oriented x 3, clear to auscultation bilaterally, regular rate & rhythm and procedure specific exam findings (Abdominal examination nontender nondistended soft lower midline scar) Recommendations Surgery/Procedure today (Laparoscopic cholecystectomy possible open) Other Plans: After thorough history physical examination and reviewing the chart and images with my personal intrepreatation.I counseled the patient for laparoscopic cholecystectomy possible open, indications risks including but not limited injury to the common bile duct and/or other viscera,that may require potential future surgical interventions including but not limited to ERCP and or laparatomy that may include Hepatobiliary surgery.Benefits and alternatives all discussed with the patient, and patient did agree to proceed accordingly. All questions have been answered and all concerns have been addressed to patient's satisfaction. Rationale was carefully and clearly discussed with the patient.Appropriate informed consent have been reviewed and signed. Coding Level of Care Code Acute Telephone Answering Service Operator for Ron Womack
[2020-12-27] MEDS: ampicillin-sulbactam 3 GM in sodium chloride 0.9% (plus) 50 ML IV (11:44)
[2020-12-27] MEDS: lidocaine 2% INJ 20 mL (12:11)
--- NOTE | 2020-12-27 12:41 | P.OP_ITS ---
Operative Report Date of procedure: December 27, 2020 Pre-op Diagnosis: Symptomatic cholelithiasis Post-op diagnosis: same (Chronic calculus cholecystitis) Post-op Findings: Fatty liver Procedure Done: Laparoscopic cholecystectomy Specimens removed/disposition: Gallbladder and contents Surgeon: Leo Ybarra Java Technical Architect: Surgical yesenia Castillo circulating nurse Audrey Anesthesia: General Estimated blood loss (mL): 10 Complications: No immediate complication Condition: stable Disposition: same day Brief History: Symptomatic cholelithiasis. Procedure: Patient was identified in the holding area and taken back to the operative suite, placed in supine position intubated by anesthesia . Time-out was done verifying the patient's name/date of /planned procedure and destination after the procedure, all were in agreement. SCDs confirmed to be functioning, preoperative antibiotics administered per protocol, and beta boogie protocol was confirmed. Patient was appropriately secured to the table, footboard was applied to the OR table, before prep and drape anesthesia was asked to tilt the table back and forth to make sure that the patient is appropriately secured and she was. Prep and drape of the abdomen was done under the usual sterile technique, followed by that supraumbilical skin incision,skin incision was done by a 15 blade knife, and stay sutures were applied to the fascia and Girard trocar technique was used to enter the abdominal without injuring any abdominal viscera, started by low flow gas insufflation followed by a high flow, started with a 10 mm laparoscope and under direct vision there was no evidence of any injuries, the scope then switched to a 30? ,10 millimeter scope and under direct visualization 5 millimeter trocar was inserted in the epigastric region followed by two 5 mm trocars were inserted in the right upper quadrant that was done after injection of local lidocaine 2% at all incision sites. Gallbladder showed chronic calculus cholecystitis &with adhesions, the liver was noticed to be moderately enlarged due to fatty component. Patient was then positioned in the head up and tilted to the left Ratcheted forceps were introduced into the lateral most 5mm port and was applied unto the fundus of the gallbladder cephalad and using Bullet forceps the infundibulum of the gallbladder was retracted laterally. Using Maryland forceps then L-hook cautery to dissect the peritoneum overlying the Calot's triangle whihc was then opened medially and laterally until the cystic duct and the cystic artery were skeletonized. Dissection was carried along the body of the gallbladder and after ensuring critical view of safety was identfied. Cystic duct and cystic artery where seen connected to the gallbladder. Clips were applied on the cystic duct towards the common bile duct 1 towards the gallbladder then divided is in sharp scissors, 2 clips were then applied onto the cystic artery and 1 towards the gallbladder and divided by sharp scissors. Dissection was then carried along of the gallbladder from the gallbladder fossa using cautery as well as sharp dissection with heat energy. The gallbladder then was dissected out from the gallbladder fossa totally , c holecystectomy was then achieved and was placed in an Endo Catch bag and then retrieved from the Girard trocar site under direct visualization using a 5 mm 30? scope through the epigastric trocar, specimen was then passed to the circulating nurse to go for permanent pathology,irrigation and hemostasis was done to the gallbladder fossa after hemostasis was secured, final survey laparoscopy was done that showed no injuries, there was some right lower sided intra-abdominal omental adhesions noticed. Additional traversing vessels were clipped and divided. Suction irrigation was obtained. The supraumbilical fascial defect was then closed using interrupted #1 PDS sutures using a fascial closure device ;Ruben Booker under direct visualization Gas was allowed to deflate,Trocars were then taken out under direct vision there was no evidence of bleeding Specimen was passed to the circulating nurse for permanent pathology. No drains were placed and the supraumbilical incision as well as all trocar sites were closed by 3-0 Vicryl followed by 4-0 Monocryl to approximate the skin edges of the supraumbilical incision, dressing was applied in the form of Dermabond and the patient patient got extubated and was taken to recovery area in a stable condition. Count of sponges, needles and instruments were completed at the end of the procedure I was present for the whole entire procedure.
[2020-12-27] MEDS: fentaNYL 50 mcg/mL INJ 2mL IVP (13:15)
[2020-12-27] MEDS: morphine 4 mg/mL SDV 1 mL IVP (13:32)
[2020-12-27] MEDS: HYDROcodone-acetaminophen 5-325 mg Tablet 1 TAB PO (14:03)
[2020-12-27] MEDS: ondansetron 2 mg/ML SDV 2 mL 4 MG IVP (14:50)
--- NOTE | 2020-12-27 16:46 | ANE.PACU2 ---
Inpatient post-anesthesia follow up: Airway intact: Yes Vital signs: Temperature 97.8 F Pulse Rate 60 Respiratory Rate 18 Blood Pressure 158/75 Pulse Oximetry 95 Oxygen Delivery Me thod Room Air Oxygen Flow Rate 6 Fraction of Inspir ed Oxygen Hydration adequate: Yes Nausea and vomiting: No Pain level: 2 Mental status: Baseline
== END 2020-12-27 14:57 | disposition home or self-care (01) ==
PROVIDERS: Anesthesiology; PCP Family Medicine; Visit Provider Surgery
PROC: 0FT44ZZ Resection of Gallbladder, Percutaneous Endoscopic Approach (ICD-10-PCS; CPT 47562; principal; 2020-12-27 11:00)
DX: K80.10 Calculus of gallbladder with chronic cholecystitis without obstruction (principal); J44.9 Chronic obstructive pulmonary disease, unspecified; I25.10 Atherosclerotic heart disease of native coronary artery without angina pectoris; E11.9 Type 2 diabetes mellitus without complications; M79.7 Fibromyalgia; K21.9 Gastro-esophageal reflux disease without esophagitis; Z86.73 Personal history of transient ischemic attack (TIA), and cerebral infarction without residual deficits; I10 Essential (primary) hypertension; Z87.11 Personal history of peptic ulcer disease; Z87.891 Personal history of nicotine dependence; Z95.5 Presence of coronary angioplasty implant and graft
CPT/HCPCS: 47562; 36416; 36592; 80048; 82962; 85007; 85027; 88304; 96372; J0295; J1644; J2270; J2405; J2704; J3010; J3490; J7030

== ENCOUNTER → 2021-01-11 11:23 | Outpatient (BNVA) | payer MEDICARE, MEDICAID, SELFPAY | PROVIDERS: PCP Family Medicine; Visit Provider Family Medicine | DX: E03.9 Hypothyroidism, unspecified (principal); E11.51 Type 2 diabetes mellitus with diabetic peripheral angiopathy without gangrene; E78.00 Pure hypercholesterolemia, unspecified; I10 Essential (primary) hypertension | CPT/HCPCS: 80061; 83036; 84443 ==

== ENCOUNTER 2021-02-24 08:22 | Outpatient (CLI) | payer MEDICARE, MEDICAID, SELFPAY ==
--- NOTE | 2021-02-24 08:30 | FL_ITS ---
WS: [id number] DOUBLE CONTRAST UPPER GI EXAMINATION HISTORY: K44.9 - Diaphragmatic hernia without obstruction or gangrene COMPARISON: None available. FLUOROSCOPY TIME: 1.6 minutes. Barium mixture traversed normally throughout the esophagus. No filling defects within the stomach. Du odenal bulb was normally distensible and pliable. There is a large paraesophageal hernia. This hernia does not distend with contrast Patient was supine. The esophagus extends posterior to the paraesophageal hernia. No gastroesophageal reflux FL/FL upper GI w air* [id number] IMPRESSION: Large, stable paraesophageal hernia. Hernia was described on prior study of
== END 2021-02-24 08:23 | disposition home or self-care (01) ==
PROVIDERS: PCP Family Medicine; Visit Provider Surgery
DX: K44.9 Diaphragmatic hernia without obstruction or gangrene (principal)
CPT/HCPCS: 74246

== ENCOUNTER → 2021-08-04 11:39 | Outpatient (BNVA) | payer MEDICARE, MEDICAID, SELFPAY | PROVIDERS: PCP Family Medicine; Visit Provider Family Medicine | DX: E03.9 Hypothyroidism, unspecified (principal); E11.51 Type 2 diabetes mellitus with diabetic peripheral angiopathy without gangrene; I10 Essential (primary) hypertension; E78.00 Pure hypercholesterolemia, unspecified | CPT/HCPCS: 80053; 80061; 83036; 84443 ==

== ENCOUNTER 2021-09-17 12:43 | Emergency (ER) | payer MEDICARE, MEDICAID, SELFPAY ==
[2021-09-17 12:58] VITALS: BP 165/77; PULSE 76; RESP 18; TEMP 36.1; O2SAT 96; BMI 34.5
--- NOTE | 2021-09-17 13:07 | XRR_ITS ---
PROCEDURE INFORMATION: Exam: XR Left Foot Exam date and time: 09/17/2021 1:16 PM Age: 66 years old Clinical indication: Pain; Foot; Left TECHNIQUE: Imaging protocol: XR Left foot. Views: 3 or more views. COMPARISON: No relevant prior studies available. FINDINGS: Bones/joints: Mild interphalangeal arthritic changes. No fracture, dislocation or subluxation. Calcaneal plantar spur. Soft tissues: Normal. XR/XR foot LT min 3V* [id number] IMPRESSION: No acute findings.
--- NOTE | 2021-09-17 13:10 | ED_ITS ---
HPI - Extremity Problem General: Chief complaint: Extremity Injury, Lower Stated complaint: left foot pain Time Seen by Provider: 09/17/21 13:06 History of Present Illness: Complains about left foot pain x1 to 2 weeks. Said is aching in the lower third and fourth fifth toe with movement. She said it hurt worse walking on even the parking lot here lately. Patient has a history of remote hairline fracture in that area. Associated symptoms: Deny chest pain, fever(s) or rash Review of Systems Const: Denies: fever(s), chills or body aches Eyes: Denies: eye discomfort ENMT: Denies: throat pain Card: Denies: chest pain Resp: Denies: dyspnea GI: Denies: abdominal pain, nausea or vomiting Musc: Reports: extremity pain (Left foot times couple weeks no known injury) Skin/Breast: Denies: rash Neuro: Denies: headache(s) Psych: Denies: depression or suicidal ideation PFSH ED PFSH: Medical History Cholelithiasis Chronic rhinitis COPD (chronic obstructive pulmonary disease) Coronary artery disease Depressive disorder, not elsewhere classified Deviated septum Diabetes Fibromyalgia GERD (gastroesophageal reflux disease) H/O: CVA (cerebrovascular accident) Hiatal hernia Hypercholesteremia Hypertension 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 region Lumbar radiculopathy Nasal turbinate hypertrophy Peptic ulcer disease Psychosis PVD (peripheral vascular disease) Nikita's edema of vocal folds Spondylosis of lumbar spine Surgical History H/O cataract H/O colonoscopy 2018 History of appendectomy History of heart artery stent 12/2019 S/P tubal ligation Family History Father CAD (coronary artery disease) Diabetes Mother Diabetes Brother Diabetes Grandfather CAD (coronary artery disease) Other Cancer Denies family history of Anesthesia complication Bleeding disorder Social History Smoking and tobacco status: former smoker Quit status (tobacco): considering quitting Alcohol intake: never Household members: none Marital status: Current occupational status: disabled History of recent travel: No Physical Exam Const: COMMON NORMALS: no acute distress, patient oriented x3 and alert HENMT: COMMON NORMALS: normocephalic HEAD & SCALP: normocephalic Eye: COMMON NORMALS: EOMs intact bilaterally Neck/C-Spine: COMMON NORMALS: no JVD Resp: COMMON NORMALS: normal respiratory effort and No use of accessory muscles Cardio: COMMON NORMALS: no JVD GI: INSPECTION: Yes normal to inspection Extremity: COMMON NORMALS: normal to inspection and full ROM LEFT LOWER EXTREMITY: Yes foot & digits (Tenderness below third and fourth toes with palpation and movement of toes.) Neuro: COMMON NORMALS: patient oriented x3 SENSORIUM/ORIENTATION: Yes alert Psych: COMMON NORMALS: mental status grossly normal Skin: COMMON NORMALS: no rashes or lesions noted GENERAL SKIN EXAM: no rashes or lesions noted Course Vital Signs: Vital signs: Vital Signs Temperature 97.0 F L 09/17/21 12:58 Pulse Rate 76 09/17/21 12:58 Respiratory Rate 18 09/17/21 12:58 Blood Pressure 165/77 09/17/21 12:58 Pulse Oximetry 96 09/17/21 12:58 MDM - Extremity (Nontraumatic) Medical Decision Making Left foot pain with no acute injury. Radiology study negative. Discharge Plan Discharge Patient Disposition: Home Clinical Impression: Foot pain Qualifiers: Laterality: left Qualified Code(s): M79.672 - Pain in left foot Condition: Stable Prescriptions: New Voltaren Arthritis Pain 1 % gel 4 g topical QID Qty: 100 0RF No Action clopidogrel [Plavix] 75 mg tablet 75 mg PO DAILY Qty: 90 3RF Hold Instructions: Resume on 01/01/21. atorvastatin 10 mg tablet 10 mg PO DAILY Qty: 90 3RF (DME) lancets [Accu-Chek Softclix Lancets] Misc See Rx Instructions .ROUTE .MEDSUPPLY Qty: 50 11RF Rx Instructions: As directed fluticasone propionate 50 mcg/actuation spray,suspension 1 spray INTRANASAL DAILY PRN (Reason: Allergy Symptoms) Qty: 16 3RF Rx Instructions: administer into each nostril albuterol sulfate 90 mcg/actuation HFA aerosol inhaler See Rx Instructions .ROUTE .COMPLEX Qty: 54 4RF Dose Instruction: INHALE 1 PUFF EVERY 4 HOURS Rx Instructions: INHALE 1 PUFF EVERY 4 HOURS (DME) Accu-Chek Dayana Plus test strp Strip See Rx Instructions .ROUTE .MEDSUPPLY Qty: 100 3RF Rx Instructions: testing once daily 90 day supply alcohol swabs [BD Alcohol Swabs] Pads, Medicated 1 pad topical .once daily 90 Days Qty: 100 3RF (DME) blood-glucose meter [Accu-Chek Dayana Plus Meter] Misc See Rx Instructions .Route Qty: 1 0RF Rx Instructions: use once daily to check blood sugar metformin 1,000 mg tablet See Rx Instructions .ROUTE .COMPLEX Qty: 90 1RF Dose Instruction: TAKE 1/2 TABLET TWICE DAILY WITH MEALS Rx Instructions: TAKE 1/2 TABLET TWICE DAILY WITH MEALS Januvia 50 mg tablet See Rx Instructions .ROUTE .COMPLEX Qty: 90 1RF Dose Instruction: TAKE 1 TABLET EVERY DAY Rx Instructions: TAKE 1 TABLET EVERY DAY pantoprazole 40 mg tablet,delayed release (DR/EC) See Rx Instructions .ROUTE .COMPLEX Qty: 90 1RF Dose Instruction: TAKE 1 TABLET EVERY DAY Rx Instructions: TAKE 1 TABLET EVERY DAY levothyroxine 100 mcg tablet 100 mcg PO DAILY 90 Days Qty: 90 1RF pregabalin [Lyrica] 200 mg capsule 200 mg PO TID 60 Days Qty: 180 2RF quetiapine 25 mg tablet See Rx Instructions .ROUTE .COMPLEX Qty: 90 1RF Dose Instruction: TAKE 1 TABLET EVERY DAY AT BEDTIME Rx Instructions: TAKE 1 TABLET EVERY DAY AT BEDTIME aspirin [Aspirin Low Dose] 81 mg tablet,delayed release (DR/EC) 81 mg PO DAILY Qty: 90 4RF Discharge Orders: Discharge ED (Routine); Ordered 09/17/21 Ordered By: Masoud Villafuerte Referrals: Everardo Mejia MD [Primary Care Provider] - Discharge Diet: Usual diet Discharge Activity: Increase activity as tolerated Activity Restrictions/Additional Instructions: Follow-up with medical provider as directed. Take medications as prescribed. Return to the ER or your medical provider if condition worsens. Please read and understand discharge instructions. If any questions ask please. Coding Level of Care Code ED Vulnerability Assessment Analyst for Ron Fwd Exam Comprehensive
== END 2021-09-17 13:51 | disposition home or self-care (01) ==
PROVIDERS: Emergency Provider Nurse Practitioner Family; PCP Family Medicine
DX: M79.672 Pain in left foot (principal); Z87.891 Personal history of nicotine dependence
CPT/HCPCS: 73630; 99281

== ENCOUNTER 2022-02-03 15:52 | Emergency (ER) | payer MEDICARE, MEDICAID, SELFPAY ==
[2022-02-03 16:14] VITALS: BP 201/86; PULSE 67; RESP 16; TEMP 36.3; O2SAT 100
--- NOTE | 2022-02-03 16:26 | ED_ITS ---
HPI - Back Pain/Injury General: Chief Complaint: Back Pain/Injury Stated Complaint: Lower back pain Time Seen by Provider: 02/03/22 16:20 Source: patient Mode of arrival: ambulatory Limitations: no limitations History of Present Illness: 66-year-old female presents to the ER today for left mid back pain. Patient reports this started about a month ago when she fell. Patient reports she was walking her dog and got tangled up in the leash. Patient reports she thinks she injured her kidney . Patient reports when she does not drink much water it seems to flareup this pain. Patient reports she noticed this morning was starting to hurt so she drank a bunch of water. Patient reports this pain is mid back left side. She reports is worse with movement. She reports it is a spasm-like pain that comes and goes. She reports she can feel it working its way up and then it works its way down. Patient reports she takes [id number] medications with only mild relief. Patient denies any pain with urination. Denies any blood in her urine. Denies any change in urinary habits. 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 region Lumbar radiculopathy Nasal turbinate hypertrophy Peptic ulcer disease Psychosis PVD (peripheral vascular disease) Nikita's edema of vocal folds Spondylosis of lumbar spine Surgical History H/O cataract H/O colonoscopy 2018 History of appendectomy History of heart artery stent 12/2019 S/P tubal ligation Family History Father CAD (coronary artery disease) Diabetes Mother Diabetes Brother Diabetes Grandfather CAD (coronary artery disease) Other Cancer Denies family history of Anesthesia complication Bleeding disorder Social History Smoking and tobacco status: former smoker Quit status (tobacco): considering quitting Alcohol intake: never Household members: none Marital status: Current occupational status: disabled History of recent travel: No Physical Exam Const: COMMON NORMALS: no acute distress, average body habitus, patient oriented x3, no limitations, healthy appearing, alert and well nourished Neck/C-Spine: COMMON NORMALS: full ROM and no lymphadenopathy Resp: COMMON NORMALS: normal respiratory effort and No retractions EFFORT & INSPECTION: Yes able to speak in complete sentences Cardio: COMMON NORMALS: regular rate, regular rhythm and No murmurs present (Cardio) RATE: regular rate RHYTHM: regular rhythm Back/Pelvis: OTHER: Patient has tenderness along the T-spine. This is paraspinal muscle tenderness with spasm noted on palpation. No spinal tenderness is noted. Patient has normal range of motion. Extremity: COMMON NORMALS: normal to inspection and full ROM Neuro: COMMON NORMALS: patient oriented x3 SENSORIUM/ORIENTATION: Yes alert Psych: OTHER: Patient slurs some of her speech and is tearful at times and other times speaks very fast. Skin: COMMON NORMALS: no rashes or lesions noted and no wounds GENERAL SKIN EXAM: no rashes or lesions noted Course ED course: 66-year-old female presents to the ER today for left mid back pain. Patient reports has been going on about 1 month but it was worse today. Patient believes this is due to her kidneys. Patient reports she was tripped up by her dog about a month ago and fell on her back. Since then she has pain off and on that is spasm-like pain, it comes and goes. Patient reports it starts small increases up and then goes back down. Patient reports is always on the left side in her mid back. Patient reports it seems to happen when she is dehydrated. Patient reports that started this morning so she drank lots of water however still present. Patient denies any change in urinary habits. We will get a UA at this time. I believe this is musculoskeletal in nature as on exam patient has paraspinal muscle spasms noted. I do not believe this is related to her kidneys in any way however patient would like reassurance. We will also get urine drug screen given patient's demeanor in the ER. I do not know patient's baseline. Vital Signs: Vital signs: Vital Signs Temperature 97.4 F L 02/03/22 16:14 Pulse Rate 67 02/03/22 16:14 Respiratory Rate 16 02/03/22 16:14 Blood Pressure 201/86 02/03/22 16:14 Pulse Oximetry 100 02/03/22 16:14 Oxygen Delivery Me thod 02/03/22 16:14 MDM - Back Pain/Injury Medical Decision Making 66-year-old female presents to the ER today for left mid back pain. Patient reports has been going on about 1 month but it was worse today. Patient believes this is due to her kidneys. Patient reports she was tripped up by her dog about a month ago and fell on her back. Since then she has pain off and on that is spasm-like pain, it comes and goes. Patient reports it starts small increases up and then goes back down. Patient reports is always on the left side in her mid back. Patient reports it seems to happen when she is dehydrated. Patient reports that started this morning so she drank lots of water however still present. Patient denies any change in urinary habits. We will get a UA at this time. I believe this is musculoskeletal in nature as on exam patient has paraspinal muscle spasms noted. I do not believe this is related to her kidneys in any way however patient would like reassurance. Also will get a urine drug screen given patient's demeanor in the ER. I am unsure of patient's baseline. UA was normal. We will treat with Robaxin as needed for muscle spasms. Recommended warm, moist heat. Topical muscle rub recommended. Follow-up with PCP in 7 to 10 days. Return to the ER with any new or worsening symptoms. Patient verbalized understanding and was in agreement with the treatment plan. Labs Laboratory Results Urine Color Yellow (Yellow) 02/03/22 16:15 Urine Appearance Clear (CLEAR) 02/03/22 16:15 Urine pH 6 (5-7) 02/03/22 16:15 Ur Specific [place] 1.005 (1.005-1.030) 02/03/22 16:15 Urine Protein Neg (Negative) 02/03/22 16:15 Urine Glucose (UA) Norm (Normal) 02/03/22 16:15 Urine Ketones Negative (Negative) 02/03/22 16:15 Urine Blood Neg (Negative) 02/03/22 16:15 Urine Nitrate Negative (Negative) 02/03/22 16:15 Urine Bilirubin Neg (Negative) 02/03/22 16:15 Urine Urobilinogen Norm mg/dL (Negative) 02/03/22 16:15 Ur Leukocyte Esterase Negative (Negative) 02/03/22 16:15 Critical Care Time Critical Care Time: Critical Care Time: No Discharge Plan Discharge Patient Disposition: Home Clinical Impression: Acute left-sided thoracic back pain Condition: Stable Prescriptions: New methocarbamol 750 mg tablet 750 mg PO Q8H Qty: 21 0RF No Action (DME) lancets [Accu-Chek Softclix Lancets] Misc See Rx Instructions .ROUTE .MEDSUPPLY Qty: 50 11RF Rx Instructions: As directed alcohol swabs [BD Alcohol Swabs] Pads, Medicated 1 pad topical .once daily 90 Days Qty: 100 3RF (DME) blood-glucose meter [Accu-Chek Dayana Plus Meter] Misc See Rx Instructions .Route Qty: 1 0RF Rx Instructions: use once daily to check blood sugar metformin 1,000 mg tablet See Rx Instructions .ROUTE .COMPLEX Qty: 90 1RF Dose Instruction: TAKE 1/2 TABLET TWICE DAILY WITH MEALS Rx Instructions: TAKE 1/2 TABLET TWICE DAILY WITH MEALS Januvia 50 mg tablet See Rx Instructions .ROUTE .COMPLEX Qty: 90 1RF Dose Instruction: TAKE 1 TABLET EVERY DAY Rx Instructions: TAKE 1 TABLET EVERY DAY pantoprazole 40 mg tablet,delayed release (DR/EC) See Rx Instructions .ROUTE .COMPLEX Qty: 90 1RF Dose Instruction: TAKE 1 TABLET EVERY DAY Rx Instructions: TAKE 1 TABLET EVERY DAY levothyroxine 100 mcg tablet 100 mcg PO DAILY 90 Days Qty: 90 1RF quetiapine 25 mg tablet See Rx Instructions .ROUTE .COMPLEX Qty: 90 1RF Dose Instruction: TAKE 1 TABLET EVERY DAY AT BEDTIME Rx Instructions: TAKE 1 TABLET EVERY DAY AT BEDTIME fluticasone propionate 50 mcg/actuation spray,suspension 1 spray INTRANASAL DAILY PRN (Reason: Allergy Symptoms) 90 Days Qty: 48 3RF Rx Instructions: administer into each nostril albuterol sulfate 90 mcg/actuation HFA aerosol inhaler See Rx Instructions .ROUTE .COMPLEX Qty: 54 4RF Dose Instruction: INHALE 1 PUFF EVERY 4 HOURS Rx Instructions: INHALE 1 PUFF EVERY 4 HOURS pregabalin [Lyrica] 200 mg capsule 200 mg PO TID 60 Days Qty: 180 2RF (DME) Accu-Chek Dayana Plus test strp Strip See Rx Instructions .ROUTE .MEDSUPPLY Qty: 100 3RF Rx Instructions: testing once daily 90 day supply clopidogrel [Plavix] 75 mg tablet 75 mg PO DAILY Qty: 90 3RF Hold Instructions: Resume on 01/01/21. atorvastatin 10 mg tablet 10 mg PO DAILY Qty: 90 3RF aspirin [Gifty Low Dose Aspirin] 81 mg tablet,delayed release (DR/EC) 81 mg PO DAILY Qty: 90 4RF Voltaren Arthritis Pain 1 % gel 4 g topical QID Qty: 100 0RF Discharge Orders: Discharge ED (Routine); Ordered 02/03/22 Ordered By: María Zhao Referrals: Everardo Mejia MD [Primary Care Provider] - Discharge Diet: Usual diet Discharge Activity: Resume usual activity Patient Instructions: Opioid Safety Activity Restrictions/Additional Instructions: Take Robaxin as prescribed. Warm heat alternating with ice. Try topical muscle rub but do not use with heat or ice. Follow-up with PCP in 7 to 10 days if no improvement. Return to ER with new or worsening symptoms. Coding Level of Care Code ED [employer] for Veronicag Fwd Exam Detailed
[2022-02-03 16:32] LABS: Add Urine Microscopic? NO; Charge for UA Resulting for Rev
[2022-02-03 16:42] LABS: Urine Appearance Clear (CLEAR); Urine Color Yellow (Yellow)
[2022-02-03 16:43] LABS: Bilirubin Urine Neg (Negative); Blood Urine Neg (Negative); Glucose Urine UA Norm (Normal); Ketones Urine Negative (Negative); Leukocyte Esterase Urine Negative (Negative); Nitrate Urine Negative (Negative); Protein Urine Neg (Negative); Specific Gravity, Urine 1.005 (1.005-1.030); Urobilinogen Urine Norm (Negative); pH Urine 6 (5-7)
[2022-02-03 18:11] LABS: Amphetamines Screen Urine Negative (Negative); Barbiturates Screen Urine Negative (Negative); Benzodiazepines Screen Urine Negative (Negative); Cocaine Screen Urine Negative (Negative); Opiate Screen Urine Negative (Negative); PCP Screen Urine Negative (Negative); THC Screen Urine Positive (Negative)
== END 2022-02-03 16:50 | disposition home or self-care (01) ==
PROVIDERS: Emergency Provider Physician Assistant; PCP Family Medicine
DX: M54.6 Pain in thoracic spine (principal); Z79.84 Long term (current) use of oral hypoglycemic drugs; Z79.02 Long term (current) use of antithrombotics/antiplatelets; Z79.82 Long term (current) use of aspirin; J44.9 Chronic obstructive pulmonary disease, unspecified; I25.10 Atherosclerotic heart disease of native coronary artery without angina pectoris; E11.9 Type 2 diabetes mellitus without complications; Z86.73 Personal history of transient ischemic attack (TIA), and cerebral infarction without residual deficits; I10 Essential (primary) hypertension; Z87.891 Personal history of nicotine dependence
CPT/HCPCS: 80306; 81003; 99283

== ENCOUNTER → 2022-02-08 11:31 | Outpatient (BNVA) | payer MEDICARE, MEDICAID, SELFPAY | PROVIDERS: PCP Family Medicine; Visit Provider Family Medicine | DX: E78.00 Pure hypercholesterolemia, unspecified (principal); I10 Essential (primary) hypertension; E03.9 Hypothyroidism, unspecified; M54.6 Pain in thoracic spine; Z72.0 Tobacco use; E11.51 Type 2 diabetes mellitus with diabetic peripheral angiopathy without gangrene; M79.7 Fibromyalgia; K44.9 Diaphragmatic hernia without obstruction or gangrene | CPT/HCPCS: 80053; 80061; 83036; 84443; 85025 ==

== ENCOUNTER → 2022-03-08 09:46 | Outpatient (BNVA) | payer MEDICARE, MEDICAID, SELFPAY | PROVIDERS: PCP Family Medicine; Visit Provider Surgery | DX: Z09 Encounter for follow-up examination after completed treatment for conditions other than malignant neoplasm (principal) | CPT/HCPCS: 99213 ==

== ENCOUNTER 2022-03-14 07:25 | Outpatient (CLI) | payer MEDICARE, MEDICAID, SELFPAY ==
--- NOTE | 2022-03-14 07:49 | FL_ITS ---
WS: [id number] UPPER GI WITH AIR TECHNICAL: Double contrast upper GI with thin and thick barium. Upright and supine images obtained. FLUOROSCOPY TIME: 3min [id number] # of spot films: 27 CLINICAL INFORMATION: GASTRESOPHAGEALREFLUX COMPARISON: 2020 and 2019 FINDINGS: Swallowing: No aspiration or penetration. Esophagus: Mild esophageal dysmotility with active reflux on the upright and supine imaging. No signi ficant structures. Large esophageal hiatal hernia with partial intrathoracic stomach appears unchanged from the prior st udies. Gastroesophageal reflux: Moderate Stomach: Rapid gastric emptying otherwise normal. Duodenum: Normal. Other findings: Evidence of reflux esophagitis in the distal esophagus. Gastritis with thickening of the gastric rugae. Incidental lateral pharyngeal pouch in the pharynx. FL/FL upper GI w air* [id number] IMPRESSION: 1. Similar-appearing large esophageal hiatal hernia. Esophagus extends posteri or to the large hiatal hernia on the sagittal imaging. 2. Mild esophageal dysmotility with active reflux in the upright and supine im aging. Evidence of reflux esophagitis and gastritis. 3. Rapid gastric emptying. 4. No other significant findings.
== END 2022-03-14 07:26 | disposition home or self-care (01) ==
LOC: RAD 07:25
PROVIDERS: PCP Family Medicine; Visit Provider Surgery
DX: K21.9 Gastro-esophageal reflux disease without esophagitis (principal); K44.9 Diaphragmatic hernia without obstruction or gangrene; K22.4 Dyskinesia of esophagus
CPT/HCPCS: 74246

== ENCOUNTER → 2022-03-27 15:59 | Outpatient (BNVA) | payer MEDICARE, MEDICAID, SELFPAY | PROVIDERS: PCP Family Medicine; Visit Provider Surgery | DX: Z09 Encounter for follow-up examination after completed treatment for conditions other than malignant neoplasm (principal); K44.9 Diaphragmatic hernia without obstruction or gangrene | CPT/HCPCS: 99212 ==

== ENCOUNTER → 2022-07-11 09:27 | Outpatient (BNVA) | payer MEDICARE, MEDICAID, SELFPAY | PROVIDERS: PCP Family Medicine; Visit Provider Family Medicine | DX: E78.00 Pure hypercholesterolemia, unspecified (principal); E03.9 Hypothyroidism, unspecified; E11.9 Type 2 diabetes mellitus without complications; G56.01 Carpal tunnel syndrome, right upper limb; E11.51 Type 2 diabetes mellitus with diabetic peripheral angiopathy without gangrene; M79.7 Fibromyalgia; K44.9 Diaphragmatic hernia without obstruction or gangrene; I10 Essential (primary) hypertension; I73.9 Peripheral vascular disease, unspecified; I25.10 Atherosclerotic heart disease of native coronary artery without angina pectoris; I65.29 Occlusion and stenosis of unspecified carotid artery; F17.200 Nicotine dependence, unspecified, uncomplicated | CPT/HCPCS: 80053; 80061; 83036; 84443; 85025; 99215 ==

== ENCOUNTER 2022-08-08 06:50 | Outpatient (CLI) | payer MEDICARE, MEDICAID, SELFPAY ==
--- NOTE | 2022-08-08 07:15 | USCV_ITS ---
Keena Anderson Age: 67 Gender: F : 1955 Exam Date: 08/08/2022 07:02 Ordering Phys: Blu Grossman MD ([email or web address]) Technologist: Exam Location: [facility] [place] Indication: lt side cca disease Risk Factors: Previous Vascular Surgery: Right Brachial BP: / Left Brachial BP: / Right Left Velocity (cm/s) Spectral Plaque Velocity (cm/s) Spectral Plaque Syst/Diast Broadening Syst/Diast Broadening 54.00/ 16.00 Prox CCA 64.40 / 11.80 57.20/ 16.40 Mid CCA 71.00 / 19.70 64.40/ 13.10 Distal CCA 69.70 / 17.70 Hetro 108.10/29.80 Prox ICA 113.10/ 28.90 Hetro 91.50/ 16.50 Mid ICA 94.70 / 19.70 Hetro 78.30/ 16.50 Distal ICA 90.70 / 32.90 71.00 ECA 159.10 1.68 ICA/CCA 1.59 Antegrade Vertebral Antegrade 44.70/ 11.80 cm/s 45.80/ 10.90 cm/s Tri Subclavian Tri 88.10 89.30 FINDINGS Mild to moderate plaques at the bifurcations bilaterally. Intimal thickening in the common carotid arteries bilaterally. Antegrade flow in the vertebral arteries bilaterally. Normal Doppler flow velocities in the subclavian arteries bilaterally CONCLUSIONS Mild to moderate plaques at the bifurcations bilaterally with a Doppler features suggesting less than 50% stenosis No significant stenosis in the vertebral/subclavian arteries, based on the above findings. Dr Blu Grossman MD [facility] (Electronically Signed) Final Date: 12 August 2022 17:05 S
== END 2022-08-08 06:51 | disposition home or self-care (01) ==
LOC: RAD 06:52
PROVIDERS: PCP Family Medicine; Visit Provider Internal Medicine Cardiovascular Disease
DX: I77.9 Disorder of arteries and arterioles, unspecified (principal)
CPT/HCPCS: 93880

== ENCOUNTER 2022-08-15 06:02 | Outpatient (CLI) | payer MEDICARE, MEDICAID, SELFPAY ==
--- NOTE | 2022-08-15 06:30 | USCV_ITS ---
Keena Anderson Age: 67 Gender: F : 1955 Exam Date: 08/15/2022 06:16 Ordering Phys: Blu Grossman MD ([email or web address]) Technologist: CT Exam Location: [facility] [place] Indication: stenosis Risk Factors: Previous Vascular Surgery: RIGHT LEFT BP: 148.0 / 76.00 BP: 143.0/ 71.00 0 0 Waveform Velocity (cm/s) Velocity (cm/s) Waveform Triphasic 74.4 Iliac Prox 83.4 Biphasic Triphasic 76.0 Iliac Mid 75.8 Biphasic Triphasic 98.9 Iliac Distal 89.2 Biphasic Biphasic 95.4 LIFE INSURANCE UNDERWRITER 84.8 Biphasic Biphasic 77.2 SFA Prox 82.9 Biphasic Biphasic 109.6 SFA Mid 69.4 Biphasic Biphasic 69.4 SFA Dist 55.2 Biphasic Biphasic 60.1 POP 54.5 Biphasic Biphasic 43.6 HOSEMAN 57.8 Triphasic Biphasic 50.5 DPA 34.8 Biphasic 1.0 HEATHER 1.0 FINDINGS On the right side, mild to moderate dense plaque in the right common femoral artery. Mild to moderate diffuse plaque in the femoral and popliteal artery. On the left side mild to moderate diffuse plaque in the iliac, femoral and popliteal arteries CONCLUSIONS 1. Resting HEATHER 1.0 bilaterally suggesting no significant arterial obstruction. 2. Mild to moderate diffuse plaque in the iliac, femoral and popliteal arteries bilaterally 3. No similar previous studies are available for comparison Dr Blu Grossman MD [facility] (Electronically Signed) Final Date: 16 August 2022 21:43 S
== END 2022-08-15 06:03 | disposition home or self-care (01) ==
LOC: RAD 06:04
PROVIDERS: PCP Family Medicine; Visit Provider Internal Medicine Cardiovascular Disease
DX: I65.29 Occlusion and stenosis of unspecified carotid artery (principal); I73.9 Peripheral vascular disease, unspecified; I70.8 Atherosclerosis of other arteries
CPT/HCPCS: 93925

== ENCOUNTER → 2022-09-27 07:47 | Outpatient (BNVA) | payer MEDICARE, MEDICAID, SELFPAY | PROVIDERS: PCP Family Medicine; Referring Provider Internal Medicine Cardiovascular Disease; Visit Provider Specialist | DX: G56.01 Carpal tunnel syndrome, right upper limb (principal) | CPT/HCPCS: 95908; 95910 ==

== ENCOUNTER 2022-09-29 17:30 | Emergency (ER) | payer MEDICARE, MEDICAID, SELFPAY ==
[2022-09-29 17:31] VITALS: BP 176/98; PULSE 68; RESP 15; O2SAT 98
[2022-09-29 17:39] VITALS: PULSE 66; O2SAT 96
--- NOTE | 2022-09-29 17:46 | USR_ITS ---
PROCEDURE INFORMATION: Exam: US Duplex Right Lower Extremity Veins, Limited Exam date and time: 09/29/2022 6:09 PM Age: 67 years old Clinical indication: Pain; Leg, lower; Right; Additional info: RT calf pain, HX of clots, on thinners. Onset RT calf pain and posterior TECHNIQUE: Imaging protocol: Real-time duplex ultrasound of the right extremity with 2-D mcnulty scale, color Doppler flow and spectral waveform analysis including responses to compression and other maneuvers (when performed) with image documentation. Limited exam was focused on the right lower extremity veins. COMPARISON: MR knee RT wo con* [id number] 01/24/2019 4:20 PM FINDINGS: Right deep veins: Unremarkable. The common femoral, femoral, proximal profunda femoral and popliteal veins are patent without thrombus. Normal Doppler waveforms. Normal compressibility and/or augmentation response. Right superficial veins: Unremarkable. Saphenofemoral junction is patent without thrombus. Soft tissues: Beltran's cyst in the right popliteal fossa measuring up to 4.5 cm in length. US/[place] [id number] IMPRESSION: 1. No evidence of deep vein thrombosis. 2. 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
--- NOTE | 2022-09-29 17:48 | ED_ITS ---
HPI - Extremity Problem General: Chief complaint: Extremity Problem,Nontraumatic Stated complaint: Leg Pain Time Seen by Provider: 09/29/22 17:36 Source: patient Mode of arrival: EMS Limitations: no limitations History of Present Illness: Patient presents to the emergency department today brought by EMS for evaluation treatment of right calf and right posterior knee pain. 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 Patient is on Plavix daily and states she is compliant with her medication. She reports achiness off-and-on in her lower extremities but, indicates today she had significant worsening of right calf pain and right posterior knee pain. She states she reached out to the nurse on- call with her insurance but, there was a bad connection and was not able to speak with anyone. She spoke to a family member who is a nurse who told her to come in to be evaluated. She denies any coloration change, sensation change, or temperature changes in the right lower extremity, foot, or toes. She denies any noticeable swelling. She is denying acute chest pains or shortness of breath. 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 Lumbar radiculopathy Nasal turbinate hypertrophy Peptic ulcer disease Psychosis PVD (peripheral vascular disease) Nikita's edema of vocal folds Schizoaffective disorder Spondylosis of lumbar spine Surgical History H/O cataract H/O colonoscopy 2018 History of appendectomy History of heart artery stent 12/2019 S/P tubal ligation Family History Father CAD (coronary artery disease) Diabetes Clotting disorder Mother Diabetes Cancer Brother Diabetes Hypertension Grandfather CAD (coronary artery disease) Grandmother Dementia Stroke Other Lung disease Denies family history of Hyperlipidemia Psychiatric illness Chronic kidney disease (CKD) Suicide Anesthesia complication Bleeding disorder Family history of premature coronary artery disease Social History Smoking and tobacco status: current every day smoker Alcohol intake: never Substance/Drug Use: never Lives independently: Yes Household members: none Marital status: Current occupational status: disabled Physical Exam Const: COMMON NORMALS: no acute distress, patient oriented x3 and alert HENMT: COMMON NORMALS: normocephalic, atraumatic and hearing grossly normal bilaterally HEAD & SCALP: normocephalic and atraumatic Eye: COMMON NORMALS: Equal, round and reactive pupils present, EOMs intact bilaterally and conjunctivae normal CONJUNCTIVA: Yes conjunctivae normal PUPIL: Yes Equal, round and reactive pupils present Neck/C-Spine: COMMON NORMALS: full ROM and no JVD Lymph: LYMPHATIC: no lymphadenopathy noted Resp: COMMON NORMALS: normal respiratory effort, No retractions and No use of accessory muscles Cardio: COMMON NORMALS: no JVD and regular rate RATE: regular rate Extremity: NARRATIVE EXTREMITY EXAM: Patient is tender on palpation to the right popliteal region-especially to the medial portion extending into the medial portion of her right upper calf. Patient is Homans negative and there is no appreciable swelling or edema noted into the right lower extremity. No erythema in this region. No signs of trauma with bruising or abrasions noted to the lower extremity. Patient has pain with full extension of the right knee and at rest, is preferring to have it bent at approximately 40 degrees. Neuro: COMMON NORMALS: patient oriented x3 SENSORIUM/ORIENTATION: Yes alert Psych: COMMON NORMALS: mental status grossly normal, Normal thought process pr esent, cooperative and normal affect THOUGHT PROCESS: Normal thought process present Skin: COMMON NORMALS: no rashes or lesions noted and turgor normal GENERAL SKIN EXAM: no rashes or lesions noted and turgor normal Course Vital Signs: Vital signs: Vital Signs Pulse Rate 66 09/29/22 17:39 Respiratory Rate 15 09/29/22 17:31 Blood Pressure 176/98 09/29/22 17:31 Pulse Oximetry 96 09/29/22 17:39 Oxygen Delivery Me thod Room Air 09/29/22 17:39 MDM - Extremity (Nontraumatic) Medical Decision Making Patient presents to the emergency department today brought by EMS for evaluation treatment of right posterior knee pain and right calf pain with a history of DVT . Patient is anticoagulated and labs indicate that she is therapeutically anticoagulated. Physical examination revealed no findings of acute pitting edema or erythema of the right lower extremity and ultrasound ruled out DVT. However, patient had findings of popliteal bursitis. I did discuss this finding with the patient and she indicates she has had trauma and injury to her right knee in the past. I did refer her back to orthopedics as she may benefit from injections or therapy. Her knee was also wrapped. She indicates she has walking assistance at home to help prevent over ambulation on the extremity for the next few days. She was given an informational handout about Beltran's cyst to refer to at home but, was also given strict return precautions here to the emergency department for acute worsening or change in her condition. Differential Diagnosis Likely gout, cellulitis, lower extremity edema and deep vein thrombosis of lower extremity Lab Data 09/29/22 17:57 09/29/22 17:57 Radiology Impressions Venous Duplex 09/29/22 17:46 IMPRESSION: 1. No evidence of deep vein thrombosis. 2. 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 Laboratory Results WBC 7.7 10^3/uL (4.0-10.0) 09/29/22 17:57 RBC 4.75 10^6/uL (4.1-5.3) 09/29/22 17:57 Hgb 11.9 g/dL (11.5-15.3) 09/29/22 17:57 Hct 38.7 % (37.0-47.0) 09/29/22 17:57 MCV 81.5 fl (81-99) 09/29/22 17:57 MCH 25.1 pg (28.0-34.0) L 09/29/22 17:57 MCHC 30.7 g/dL (30.0-36.0) 09/29/22 17:57 RDW 17.6 % (12.1-15.1) H 09/29/22 17:57 Plt Count 272 10^3/cmm (130-400) 09/29/22 17:57 MPV 11.4 fL (7.4-10.4) H 09/29/22 17:57 Neut % (Auto) 47.1 % 09/29/22 17:57 Lymph % (Auto) 43.7 % 09/29/22 17:57 Fleming % (Auto) 6.1 % 09/29/22 17:57 Eos % (Auto) 2.0 % 09/29/22 17:57 Baso % (Auto) 0.7 % 09/29/22 17:57 Neut # (Auto) 3.62 10^3/uL (1.8-7.7) 09/29/22 17:57 Lymph # (Auto) 3.4 10^3/uL (0.8-4.8) 09/29/22 17:57 Fleming # (Auto) 0.5 10^3/uL (0.2-0.9) 09/29/22 17:57 Eos # (Auto) 0.2 10^3/uL (0.0-0.8) 09/29/22 17:57 Baso # (Auto) 0.1 10^3/uL (0.0-0.1) 09/29/22 17:57 Nucleated RBC % (auto) 0 % 09/29/22 17:57 Nucleated RBCs # 0.0 /100WBC 09/29/22 17:57 PT 12.60 SECONDS (12.1-14.9) 09/29/22 17:57 INR 0.91 (0.8-1.2) 09/29/22 17:57 APTT 28.3 SECONDS (23.9-36.7) 09/29/22 17:57 Sodium 140 mmol/L (136-145) 09/29/22 17:57 Potassium 4.1 mmol/L (3.5-5.1) 09/29/22 17:57 Chloride 104 mmol/L (98-107) 09/29/22 17:57 Carbon Dioxide 26 mmol/L (22-29) 09/29/22 17:57 Anion Gap 14.1 (5-19) 09/29/22 17:57 BUN 10 mg/dL (8-23) 09/29/22 17:57 Creatinine 0.5 mg/dL (0.5-0.9) 09/29/22 17:57 GFR Calculation 123.1 mL/min (90-130) 09/29/22 17:57 Glucose 112 mg/dL (65-115) 09/29/22 17:57 Calculated Osmolality 290 mOsm/kg (285-295) 09/29/22 17:57 Calcium 8.9 mg/dL (8.5-10.5) 09/29/22 17:57 Total Bilirubin 0.3 mg/dL (0.15-1.2) 09/29/22 17:57 AST 18 U/L (0-32) 09/29/22 17:57 ALT 14 U/L (0-33) 09/29/22 17:57 Alkaline Phosphatase 127 U/L (35-105) H 09/29/22 17:57 Total Protein 7.8 g/dL (6.6-8.7) 09/29/22 17:57 Albumin 4.1 g/dL (3.5-5.2) 09/29/22 17:57 Globulin 3.7 g/dL (1.3-4.6) 09/29/22 17:57 Discharge Plan Discharge Patient Disposition: Home Clinical Impression: Popliteal bursitis of right knee Condition: Stable Prescriptions: No Action (DME) lancets [Accu-Chek Softclix Lancets] Misc See Rx Instructions .ROUTE .MEDSUPPLY Qty: 50 11RF Rx Instructions: As directed alcohol swabs [BD Alcohol Swabs] Pads, Medicated 1 pad topical .once daily 90 Days Qty: 100 3RF (DME) blood-glucose meter [Accu-Chek Dayana Plus Meter] Misc See Rx Instructions .Route Qty: 1 0RF Rx Instructions: use once daily to check blood sugar fluticasone propionate 50 mcg/actuation spray,suspension 1 spray INTRANASAL DAILY PRN (Reason: Allergy Symptoms) 90 Days Qty: 48 3RF Rx Instructions: administer into each nostril albuterol sulfate 90 mcg/actuation HFA aerosol inhaler See Rx Instructions .ROUTE .COMPLEX Qty: 54 4RF Dose Instruction: INHALE 1 PUFF EVERY 4 HOURS Rx Instructions: INHALE 1 PUFF EVERY 4 HOURS (DME) Accu-Chek Dayana Plus test strp Strip See Rx Instructions .ROUTE .MEDSUPPLY Qty: 100 3RF Rx Instructions: testing once daily 90 day supply clopidogrel [Plavix] 75 mg tablet 75 mg PO DAILY Qty: 90 3RF Hold Instructions: Resume on 01/01/21. atorvastatin 10 mg tablet 10 mg PO DAILY Qty: 90 3RF quetiapine 25 mg tablet See Rx Instructions .ROUTE .COMPLEX Qty: 90 1RF Dose Instruction: TAKE 1 TABLET EVERY DAY AT BEDTIME Rx Instructions: TAKE 1 TABLET EVERY DAY AT BEDTIME metformin 1,000 mg tablet See Rx Instructions .ROUTE .COMPLEX Qty: 90 1RF Dose Instruction: TAKE 1/2 TABLET TWICE DAILY WITH MEALS Rx Instructions: TAKE 1/2 TABLET TWICE DAILY WITH MEALS levothyroxine 100 mcg tablet 100 mcg PO DAILY 90 Days Qty: 90 1RF pantoprazole 40 mg tablet,delayed release (DR/EC) See Rx Instructions .ROUTE .COMPLEX Qty: 90 1RF Dose Instruction: TAKE 1 TABLET EVERY DAY Rx Instructions: TAKE 1 TABLET EVERY DAY Januvia 50 mg tablet See Rx Instructions .ROUTE .COMPLEX Qty: 90 1RF Dose Instruction: TAKE 1 TABLET EVERY DAY Rx Instructions: TAKE 1 TABLET EVERY DAY pregabalin [Lyrica] 200 mg capsule 200 mg PO TID 60 Days Qty: 180 2RF cyclobenzaprine 10 mg tablet See Rx Instructions .ROUTE .COMPLEX Qty: 60 3RF Dose Instruction: TAKE ONE TABLET BY MOUTH TWICE DAILY as needed for muscle spasm Rx Instructions: TAKE ONE TABLET BY MOUTH TWICE DAILY as needed for muscle spasm losartan 25 mg tablet 25 mg PO DAILY Qty: 90 3RF aspirin [Gifty Low Dose Aspirin] 81 mg tablet,delayed release (DR/EC) 81 mg PO DAILY Qty: 90 4RF Discharge Orders: Discharge ED (Routine); Ordered 09/29/22 Ordered By: Kelsey Petty Referrals: Everardo Mejia MD [Primary Care Provider] - Discharge Diet: As Directed Discharge Activity: Limit activity as instructed Patient Instructions: Beltran Cyst (ED) Activity Restrictions/Additional Instructions: Ultrasound today confirms that you do not have a DVT/blood clot in your right leg. However, they did find a popliteal bursitis-also known as a Beltran's cyst. As we discussed, this is an increase of fluid in the bursa behind your right knee. This can occur because of previous injury, arthritis, or acute injury. Causes pain in the knee and can travel down into the calf area. I am referring you onto orthopedics for follow-up as they often treat with either physical therapy or, may require further intervention such as steroid injections. We do recommend compression to the knee. You can apply ice to the back of your knee for 15 to 20 minutes, multiple times throughout the day. You can use Tylenol as well. Coding Level of Care Code ED Chocolate Maker for Ron Womack
[2022-09-29 18:31] LABS: Basophils # 0.1 10^3/uL (0.0-0.1); Basophils % 0.7 %; Eosinophils # 0.2 10^3/uL (0.0-0.8); Hematocrit 38.7 % (37.0-47.0); Hemoglobin 11.9 g/dL (11.5-15.3); Lymphocytes # 3.4 10^3/uL (0.8-4.8); Lymphocytes % 43.7 %; Mean Corpuscular HGB Conc 30.7 g/dL (30.0-36.0); Mean Corpuscular Hemoglobin 25.1 pg (28.0-34.0); Mean Corpuscular Volume 81.5 fl (81-99); Mean Platelet Volume 11.4 fL (7.4-10.4); Monocytes # 0.5 10^3/uL (0.2-0.9); Monocytes % 6.1 %; Neutrophils # 3.62 10^3/uL (1.8-7.7); Neutrophils % 47.1 %; Nucleated Red Blood Cells % 0 %; Platelet Count 272 10^3/cmm (130-400); Red Blood Count 4.75 10^6/uL (4.1-5.3); Red Cell Distribution Width 17.6 % (12.1-15.1); White Blood Count 7.7 10^3/uL (4.0-10.0)
[2022-09-29 18:43] LABS: INR 0.91 (0.8-1.2)
[2022-09-29 18:44] LABS: Partial Thromboplastin Time 28.3 SECONDS (23.9-36.7)
[2022-09-29 18:53] LABS: Alanine Aminotransferase 14 U/L (0-33); Albumin Level 4.1 g/dL (3.5-5.2); Alkaline Phosphatase 127 U/L (35-105); Anion Gap 14.1 (5-19); Aspartate Amino Transferase 18 U/L (0-32); Blood Urea Nitrogen 10 mg/dL (8-23); Calcium 8.9 mg/dL (8.5-10.5); Carbon Dioxide 26 mmol/L (22-29); Chloride 104 mmol/L (98-107); Globulin 3.7 g/dL (1.3-4.6); Glomerular Filtration Rate 123.1 mL/min (90-130); Glucose 112 mg/dL (65-115); Osmolality Calculated 290 mOsm/kg (285-295); Potassium 4.1 mmol/L (3.5-5.1); Sodium 140 mmol/L (136-145); Total Bilirubin 0.3 mg/dL (0.15-1.2); Total Protein 7.8 g/dL (6.6-8.7)
--- NOTE | 2022-10-02 08:15 | DCPLANNER ---
Addendum entered by Kimmie Villagomez 10/19/22 09:28: Patient had a follow up appointment scheduled with ortho - patient did attend appointment. Addendum entered by Kimmie Villagomez 10/04/22 09:21: Patient has a follow up appointment scheduled for Tuesday, October 18, 2022 at 10:[address] Gerardo at ortho. Original Note: trust manager had message to schedule a follow up appointment for patient with ortho. trust manager sent patients information to the front office staff at ortho. Patients information will be printed and reviewed. Clinic will call patient with appointment information.
== END 2022-09-29 20:04 | disposition home or self-care (01) ==
PROVIDERS: Emergency Provider Physician Assistant; PCP Family Medicine
DX: M70.51 Other bursitis of knee, right knee (principal); Z79.82 Long term (current) use of aspirin; Z79.02 Long term (current) use of antithrombotics/antiplatelets; Z79.84 Long term (current) use of oral hypoglycemic drugs; F17.210 Nicotine dependence, cigarettes, uncomplicated; J44.9 Chronic obstructive pulmonary disease, unspecified; I25.10 Atherosclerotic heart disease of native coronary artery without angina pectoris; E11.9 Type 2 diabetes mellitus without complications; Z86.73 Personal history of transient ischemic attack (TIA), and cerebral infarction without residual deficits; I10 Essential (primary) hypertension
CPT/HCPCS: 36415; 80053; 85025; 85610; 85730; 93971; 99284

== ENCOUNTER → 2022-10-18 09:38 | Outpatient (BNVA) | payer MEDICARE, MEDICAID, SELFPAY | PROVIDERS: PCP Family Medicine; Referring Provider Physician Assistant; Visit Provider Specialist | DX: M25.561 Pain in right knee (principal); S96.811A Strain of other specified muscles and tendons at ankle and foot level, right foot, initial encounter; X58.XXXA Exposure to other specified factors, initial encounter | CPT/HCPCS: 73560; 73565; 99204 ==

== ENCOUNTER → 2022-10-23 09:48 | Outpatient (BNVA) | payer MEDICARE, MEDICAID, SELFPAY | PROVIDERS: PCP Family Medicine; Referring Provider Family Medicine; Visit Provider Specialist | DX: G56.01 Carpal tunnel syndrome, right upper limb (principal); E11.51 Type 2 diabetes mellitus with diabetic peripheral angiopathy without gangrene; Z01.818 Encounter for other preprocedural examination; Z79.84 Long term (current) use of oral hypoglycemic drugs | CPT/HCPCS: 36415; 73110; 80053; 83036; 85025 ==

== ENCOUNTER 2022-10-23 14:01 | Outpatient (CLI) | payer MEDICARE, MEDICAID, SELFPAY | END 2022-10-23 14:02 | disposition home or self-care (01) | LOC: SPT 14:01 | PROVIDERS: Visit Provider Specialist | DX: Z46.89 Encounter for fitting and adjustment of other specified devices (principal); G56.01 Carpal tunnel syndrome, right upper limb | CPT/HCPCS: 97760; 99214; L3908 ==

== ENCOUNTER 2022-11-01 12:32 | Outpatient (RCR) | payer MEDICARE, MEDICAID, SELFPAY | END 2022-11-01 23:59 | disposition home or self-care (01) | LOC: SPT 12:32 | PROVIDERS: PCP Family Medicine; Visit Provider Specialist | DX: M25.561 Pain in right knee (principal) | CPT/HCPCS: 97161 ==

== ENCOUNTER 2022-11-03 06:53 | Day surgery (SDC) | payer MEDICARE, MEDICAID, SELFPAY ==
[2022-11-03] VITALS (12 sets, daily range): BP systolic 139–187; BP diastolic 69–107; PULSE 54–69; RESP 14–20; TEMP 36.1–36.6; O2SAT 91–100
[2022-11-03] MEDS: CELEcoxib 200 mg Capsule 400 MG PO (07:20)
[2022-11-03 07:22] LABS: Glucose Point of Care 122 mg/dL (70-110)
[2022-11-03] MEDS: sodium chloride 0.9% 1,000 ML 30 ML IV (07:22)
[2022-11-03] MEDS: acetaminophen 1,000 MG/100 ML PIGGYBACK 400 MG IV (07:23)
--- NOTE | 2022-11-03 07:39 | ANES.PREANE2 ---
Pre-Anesthetic Assessment Height/Weight: Height 1.6 m Weight 74.389 kg Temp Pulse Resp BP Pulse Ox O2 Del Method 97.6 F 69 18 147/90 98 Room Air 11/03/22 07:03 11/03/22 07:03 11/03/22 07:03 11/03/22 07:03 11/03/22 07:03 11/03/22 07:06 Operation Date: 11/03/22 08:25 Proposed Procedures p RIGHT CARPAL TUNNEL RELEASE 51668,G56.00(Right) - Soraya Gerardo MD Familial anesthetic complications: None Was Beta Ritu taken within 24 hours: N/A Was Clonidine taken within 24 hours: N/A Last intake: Intake Last Liquid Date 11/02/22 Last Liquid Time 22:00 Last Solid Date 11/02/22 Last Solid Time 17:00 Social No alcohol and No tobacco Exam alert, oriented x 3, clear to auscultation bilaterally and regular rate & rhythm Airway Mallampati: Class II Dentition: false Pulmonary Chronic Obstructive Pulmonary Disease CV/HEM Coronary Artery Disease (stents > 1 year ago), Hypertension and Peripheral Vascular Disease GI Gastroesophageal Reflux Disease and Hiatal Hernia Neuropsych Transient Ischemic Attack Anesthetic Plan ASA status: 3 Anesthesia: General Risk of > 500 ml blood loss (7ml/kg in children): No Medications/Allergies Home Medications Medication Instructions Recorded Confirmed Last Taken Type lancets (Accu-Chek Softclix #50 ea 07/22/19 10/23/22 02/04/20 Rx Lancets) aspirin 81 mg tablet,delayed 81 mg PO DAILY #90 tabs 12/17/19 11/02/22 11/01/22 Rx release (Gifty Low Dose Aspirin) blood-glucose meter (Accu-Chek #1 ea 03/16/21 10/23/22 Unknown Rx Dayana Plus Meter) pregabalin 200 mg capsule (Lyrica) 200 mg PO TID 60 days #180 caps 05/10/22 11/02/22 11/03/22 06:30 Rx losartan 25 mg tablet 25 mg PO DAILY #90 tabs 08/11/22 11/02/22 11/02/22 Rx atorvastatin 10 mg tablet 10 mg PO DAILY elevated 10/17/22 11/02/22 11/02/22 Rx cholesterol #90 tabs clopidogrel 75 mg tablet (Plavix) 75 mg PO DAILY #90 tabs 10/17/22 11/02/22 10/28/22 Rx COCK UP SPLINT #1 ea 10/23/22 10/23/22 Unknown Rx albuterol sulfate 90 mcg/actuation See Rx Instructions .Route 10/25/22 11/02/22 11/02/22 Rx aerosol inhaler .COMPLEX #54 grams blood sugar diagnostic (Accu-Chek #100 ea 10/25/22 10/25/22 Unknown Rx Dayana Plus test strips) fluticasone propionate 50 1 spray intranasal DAILY PRN 10/25/22 11/02/22 11/02/22 Rx mcg/actuation nasal Allergy Symptoms 90 days #48 grams spray,suspension cyclobenzaprine 10 mg tablet 10 mg PO BID PRN Muscle Spasm 11/03/22 11/03/22 11/02/22 History levothyroxine 100 mcg tablet 100 mcg PO DAILY 11/03/22 11/03/22 11/02/22 History (Synthroid) metformin 1,000 mg tablet 500 mg PO BID 11/03/22 11/03/22 11/01/22 History pantoprazole 40 mg tablet,delayed 40 mg PO DAILY 11/03/22 11/03/22 11/02/22 History release quetiapine 25 mg tablet 25 mg PO DAILY 11/03/22 11/03/22 11/02/22 History sitagliptin phosphate 50 mg tablet 50 mg PO DAILY 11/03/22 11/03/22 11/02/22 History (Januvia) Allergies Allergy/AdvReac Type Severity Reaction Status Date / Time clarithromycin [From Biaxin] Allergy Thrush Verified 11/03/22 07:27 codeine Allergy ADR-Nausea Verified 11/03/22 07:27 Current Medications Generic Name Dose Route Start Last Admin Trade Name Freq PRN Reason Stop Dose Admin Sodium Chloride 1,000 mls @ 30 mls/hr 11/03/22 07:00 11/03/22 07:22 Sodium Chloride 0.9% IV 11/04/22 06:59 30 mls/hr .Q24H SHE Administration PFSH Anesthesia Medical History Carpal tunnel syndrome, right Cholelithiasis Chronic rhinitis COPD (chronic obstructive pulmonary disease) Coronary artery disease Depressive disorder, not elsewhere classified Deviated septum Diabetes Fibromyalgia GERD (gastroesophageal reflux disease) H/O: CVA (cerebrovascular accident) Hiatal hernia Hypercholesteremia Hypertension 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 region Lumbar radiculopathy Nasal turbinate hypertrophy Peptic ulcer disease Psychosis PVD (peripheral vascular disease) Nikita's edema of vocal folds Schizoaffective disorder Spondylosis of lumbar spine Surgical History H/O cataract H/O colonoscopy 2018 History of appendectomy History of heart artery stent 12/2019 S/P tubal ligation Family History Father CAD (coronary artery disease) Diabetes Clotting disorder Mother Diabetes Cancer Brother Diabetes Hypertension Grandfather CAD (coronary artery disease) Grandmother Dementia Stroke Other Lung disease Denies family history of Hyperlipidemia Psychiatric illness Chronic kidney disease (CKD) Suicide Anesthesia complication Bleeding disorder Family history of premature coronary artery disease Social History Smoking and tobacco status: current every day smoker Alcohol intake: never Substance/Drug Use: never Lives independently: Yes Household members: none Marital status: Current occupational status: disabled Data Anesthesia Cardiac Studies: Echocardiogram Ultrasound 11/01/19 Sestamibi Stress Test (Cardiology) 11/12/19
--- NOTE | 2022-11-03 08:00 | P.HPUD_ITS ---
Surgery/Procedure H&P Update DATE OF PROCEDURE: November 03, 2022 DATE H&P PERFORMED: 10/23/22 H&P UPDATE INFORMATION: I have reviewed H&P completed within last 30 days, I have examined patient prior to procedure, No changes to prior documentation and H&P is in [facility] EMR on date indicated PLANNED PROCEDURE: Operation Date: 11/03/22 08:25 Proposed Procedures p RIGHT CARPAL TUNNEL RELEASE 52087,G56.00(Right) - Soraya Gerardo MD Related Problem List Diagnoses (1) Carpal tunnel syndrome, right:
[2022-11-03] MEDS: ceFAZolin 2,000 MG in sodium chloride 0.9% (plus) 50 ML 100 MG IV (08:07)
--- NOTE | 2022-11-03 12:09 | ANE.PACU2 ---
Inpatient post-anesthesia follow up: Airway intact: Yes Vital signs: Temperature 97.8 F Pulse Rate 56 Respiratory Rate 18 Blood Pressure 170/91 Pulse Oximetry 98 Oxygen Delivery Me thod Room Air Oxygen Flow Rate 6 Fraction of Inspir ed Oxygen Hydration adequate: Yes Nausea and vomiting: No Pain level: 1 Mental status: Baseline
--- NOTE | 2022-11-03 12:48 | PM.OP ---
Operative Report Date of procedure: November 03, 2022 Pre-op diagnosis: Right carpal tunnel syndrome Post-op diagnosis: Right carpal tunnel syndrome Post-op findings: Very tight carpal canal with hourglass deformity to the median nerve Procedure done: Right carpal tunnel release Pathology: none sent Surgeon: Soraya Gerardo Building Maintenance Technician: None Anesthesia: General (Per LMA, ASA 3) Estimated blood loss (mL): 1 Tourniquet time (min): 23 (At 250 mmHg) IV fluids (mL): 1,000 Urine output (mL): 0 (No Hunter) Complications: None Condition: stable Disposition: PACU (Then return to same-day surgery for discharge to home) Brief History: This is an established 67 year old female patient here today for right carpal tunnel release. Patient states the pain has been occurring for years. Patient states the pain is to the thumb, index, middle finger and slightly to the ring finger. Patient states that the fingers become numb more than painful. Patient states that she feels she is having issues gripping items as well as she has begun dropping things frequently. When the patient was seen in the office, risks and complications of carpal tunnel release were discussed. Questions were answered. Consents were signed Procedure: The patient was brought to the operating theater. A general anesthesia was administered per LMA, ASA 3. The tourniquet was elevated to 250 mmHg for a total tourniquet time of 23 minutes. The patient was also given Ancef 2 g preoperatively. The arm was then prepped and draped with DuraPrep in usual fashion with the arm draped free. A surgical pause was performed. At the time, the surgical pause, we confirmed the site and side of surgery. We also confirmed the patient's identity, appropriate and timely administration of preoperative antibiotics and preoperative surgical markings. An incision was then made along the thenar crease. The incision crossed the wrist joint in a curvilinear fashion. Dissection continued through skin and soft tissues using a scalpel. The palmaris longus was identified along with the transverse carpal ligament. Each of these was released carefully to avoid injury to the median nerve. We were able to dissect gently into the carpal canal which was noted to be quite tight with significant compression across the median nerve. The nerve was visualized and was an hourglass shape. The canal was subsequently palpated to assure there was no bony encroachment upon the canal. There was a quite thickened fibrous tissue within the canal, and this was opened longitudinally as well. The canal was then palpated distally and proximally to assure that my small finger was passed easily without impingement. Finding this to be so, attention was directed to closure. The wound was irrigated with ropivacaine plain. It was then closed with 3-0 nylon in an interrupted mattress fashion. Sterile dressing was then placed consisting of Dermabond, OpSite, fluffed fluffs, sterile soft roll, and an Mekhi wrap. The tourniquet was released after 23 minutes. There were no complications. There were no specimens. The procedure was well tolerated. Plan is the patient will be discharged home. Related Problem List Diagnoses (1) Carpal tunnel syndrome, right:
== END 2022-11-03 11:15 | disposition home or self-care (01) ==
PROVIDERS: PCP Family Medicine; Visit Provider Specialist
PROC: (CPT 64721; principal; 2022-11-03 08:15)
DX: G56.01 Carpal tunnel syndrome, right upper limb (principal); J44.9 Chronic obstructive pulmonary disease, unspecified; I25.10 Atherosclerotic heart disease of native coronary artery without angina pectoris; I10 Essential (primary) hypertension; I73.9 Peripheral vascular disease, unspecified; K21.9 Gastro-esophageal reflux disease without esophagitis; Z86.73 Personal history of transient ischemic attack (TIA), and cerebral infarction without residual deficits; Z79.82 Long term (current) use of aspirin; Z79.02 Long term (current) use of antithrombotics/antiplatelets; E11.9 Type 2 diabetes mellitus without complications; Z79.84 Long term (current) use of oral hypoglycemic drugs; F17.200 Nicotine dependence, unspecified, uncomplicated
CPT/HCPCS: 64721; 36416; 82962; J0131; J0690; J1100; J2405; J2704; J3010; J3490; J7030

== ENCOUNTER → 2022-11-13 14:30 | Outpatient (BNVA) | payer MEDICARE, MEDICAID, SELFPAY | PROVIDERS: PCP Family Medicine; Visit Provider Specialist | DX: Z98.890 Other specified postprocedural states (principal) | CPT/HCPCS: 99024 ==

== ENCOUNTER → 2022-11-20 08:25 | Outpatient (BNVA) | payer MEDICARE, MEDICAID, SELFPAY | PROVIDERS: PCP Family Medicine; Visit Provider Specialist | DX: G56.01 Carpal tunnel syndrome, right upper limb (principal) | CPT/HCPCS: 99024 ==

== ENCOUNTER 2022-11-23 15:47 | Outpatient (RCR) | payer MEDICARE, MEDICAID, SELFPAY | END 2022-12-01 23:59 | disposition home or self-care (01) | LOC: SPT 15:47 | PROVIDERS: PCP Family Medicine; Visit Provider Specialist | DX: M25.561 Pain in right knee (principal) | CPT/HCPCS: 97110 ==

== ENCOUNTER 2022-12-02 06:00 | Outpatient (RCR) | payer MEDICARE, MEDICAID, SELFPAY | END 2022-12-06 23:59 | disposition home or self-care (01) | LOC: SPT 06:00 | PROVIDERS: PCP Family Medicine; Visit Provider Specialist | DX: M25.561 Pain in right knee (principal) | CPT/HCPCS: 97110 ==

== ENCOUNTER → 2023-01-16 09:45 | Outpatient (BNVA) | payer MEDICARE, MEDICAID, SELFPAY | PROVIDERS: PCP Family Medicine; Visit Provider Internal Medicine Cardiovascular Disease | DX: I25.10 Atherosclerotic heart disease of native coronary artery without angina pectoris (principal); I73.9 Peripheral vascular disease, unspecified; E03.9 Hypothyroidism, unspecified; E11.51 Type 2 diabetes mellitus with diabetic peripheral angiopathy without gangrene; I10 Essential (primary) hypertension; F17.200 Nicotine dependence, unspecified, uncomplicated; Z79.84 Long term (current) use of oral hypoglycemic drugs | CPT/HCPCS: 99214 ==

== ENCOUNTER → 2023-01-17 09:54 | Outpatient (BNVA) | payer MEDICARE, MEDICAID, SELFPAY | PROVIDERS: PCP Family Medicine; Visit Provider Family Medicine | DX: E03.9 Hypothyroidism, unspecified (principal); E78.00 Pure hypercholesterolemia, unspecified; E11.51 Type 2 diabetes mellitus with diabetic peripheral angiopathy without gangrene | CPT/HCPCS: 80053; 82465; 83036; 84443; 85025 ==